=== PATIENT | female | born 1975 | race Caucasian/White ===

== ENCOUNTER 2017-10-11 09:06 | Emergency (ER) | payer MEDICAID, OTHER ==
[~2017-10-11] VITALS: Ht 154.9 cm; Wt 113.4 kg
[~2017-10-11 09:06] MED LIST: ACHD5005 PO; ACID1TAB PO; ALPR2TAB2; AMIT100T2 PO; AMIT150T PO; AMIT150T3 PO; AMIT50TA3; BUSP10TA95 GT; CA C1TAB26 PO; CEFD300C3 PO; CEPH500C PO; CIPR500T4; CIPR500T78 PO; CLIN-62; CLIN-62 PO; CLN150C PO; CPR500T PO; CYCL10TA9 PO; DICY10CA59 PO; DIET PILL; DIPH1TAB25 PO; DOXY25TA35 PO; ESCI20TA2; FLUO20CA25 PO; FLUO40CA12; FLUO40CA12 PO; GBPN100C; GBPN300C PO; HYDR-1231 PO; HYDR-34 PO; HYDR-3714; HYDR-707 PO; HYDR-757 PO; HYDR1TAB PO; HYDR25CA5 PO; IBP800T; IBUP-2055 PO; IBUP800T26 PO; INDO50CA PO; KETO75CA PO; LEVOTHYROID; META800T5 PO; NAPR-243 PO; NITR-65 PO; ONDA-42 SL; PHEN200T27 PO; POTA10CA43 PO; PREG100C22 PO; PREG150C; PREG25CA; PREG50C PO; PROP1TAB77; PROP20TA5 PO; PROPANOLOL; QUET50TA; TRAZ-144 PO; TRAZ150T42 PO; TRM50T PO; TRZ100T; TRZ50T; [UNRECOGNIZED DRUG - CODE]
--- OUTSIDE RECORDS SUMMARY | 2017-10-11 09:11 | XMS REPORT ---
Author Author FANNY LOPEZ Organization [facility] Address [address] [place] [address] Care Team Providers Care Power Transformer Repairer Name Role Phone FANNY LOPEZ Unavailable PROBLEMS Type Condition ICD9-CM Code [id number] Code Onset Dates Condition Status SNOMED Code Problem Bipolar depression F31.30 Active 49033116 Problem Left hip pain M25.552 Active 24544751 Problem Sacroiliac joint pain M53.3 Active 424195390 Problem Idiopathic peripheral neuropathy G60.9 Active 84690329 Problem Viral syndrome B34.9 Active 84725390 Problem Ganglion cyst of wrist, right M67.431 Active 779468251 Problem Primary insomnia F51.01 Active 6543072 Problem Abnormal thyroid blood test R94.6 Active 006483577 Problem Long-term use of high-risk medication Z79.899 Active 634630541 Problem Bipolar disorder, unspecified 296.80 Active 01584030 Problem Arthritis M19.90 Active 3328810 Problem Essential hypertension I10 Active 54196308 Problem IBS (irritable bowel syndrome) K58.9 Active 02098828 Problem Acquired hypothyroidism E03.9 Active 551381799 Problem Gastroesophageal reflux disease without esophagitis K21.9 Active 083037653 Problem Fibromyalgia M79.7 Active 68845801 ALLERGIES No Known Allergies SOCIAL HISTORY No smoking Hx information available PLAN OF CARE VITAL SIGNS MEDICATIONS No Known Medications RESULTS No Results PROCEDURES No Known procedures IMMUNIZATIONS No Known Immunizations
--- OUTSIDE RECORDS SUMMARY | 2017-10-11 09:12 | XMS REPORT ---
Author Author FANNY LOPEZ [facility] eClinicalWorks Address Unknown Phone Unavailable Care Team Providers Care Metal Tank Builder Name Role Phone FANNY LOPEZ CP Unavailable Allergies No Known Allergies Problems Problem Type Condition Code Onset Dates Condition Status Problem Essential hypertension, benign 401.1 Active Problem Esophageal reflux 530.81 Active Problem Anxiety state, unspecified 300.00 Active Problem Pain in joint, lower leg 719.46 Active Problem Memory loss 780.93 Active Problem HTN (hypertension) 401.9 Active Problem Opioid type dependence, unspecified abuse 304.00 Active Problem Major depressive disorder, recurrent episode, severe, without mention of psychotic behavior 296.33 Active Problem Irritable bowel syndrome 564.1 Active Problem Other chronic pain 338.29 Active Assessment Fibromyalgia M79.7 Active Problem Insomnia, unspecified 780.52 Active Problem Bipolar disorder, unspecified 296.80 Active Medications No Known Medications Results No Known Results Summary Purpose eClinicalWorks Submission
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
--- OUTSIDE RECORDS SUMMARY | 2017-10-11 09:12 | XMS REPORT ---
Author Author GRACY URIAS [facility] eClinicalWorks Address Unknown Phone Unavailable Care Team Providers Care Weekend Receptionist Name Role Phone GRACY URIAS CP Unavailable Allergies, Adverse Reactions, Alerts Substance Reaction Event Type Tramadol HCl itching Drug Allergy Penicillin V Potassium shock Drug Allergy Cymbalta rash Drug Allergy Ambien dangerous activites while sleeping Drug Allergy Morphine hives, vomiting Drug Allergy Problems Problem Type Condition Code Onset Dates Condition Status Problem Fibromyalgia M79.7 Active Problem Acquired hypothyroidism E03.9 Active Problem Arthritis M19.90 Active Assessment Bipolar depression F31.30 Active Problem Bipolar disorder, unspecified 296.80 Active Problem Sacroiliac joint pain M53.3 Active Problem Bipolar depression F31.30 Active Problem Left hip pain M25.552 Active Problem IBS (irritable bowel syndrome) K58.9 Active Problem Gastroesophageal reflux disease without esophagitis K21.9 Active Problem Primary insomnia F51.01 Active Problem Essential hypertension I10 Active Medications No Known Medications Procedures Procedure Coding System Code Date Psych diagnostic evaluation w/medical services, new patient CPT-4 24009 Sep 20, 2015 Results No Known Results Summary Purpose eClinicalWorks Submission
--- OUTSIDE RECORDS SUMMARY | 2017-10-11 09:12 | XMS REPORT ---
Author Author FANNY LOPEZ Organization [facility] Address [address] [place] [address] Care Team Providers Care Nurseryman Assistant Name Role Phone SOFIACasie FANNY Unavailable PROBLEMS Type Condition ICD9-CM Code [id number] Code Onset Dates Condition Status SNOMED Code Problem Bipolar depression F31.30 Active 15281323 Problem Left hip pain M25.552 Active 01757975 Problem Sacroiliac joint pain M53.3 Active 387658679 Problem Idiopathic peripheral neuropathy G60.9 Active 54672509 Problem Viral syndrome B34.9 Active 75042693 Problem Ganglion cyst of wrist, right M67.431 Active 946484544 Problem Primary insomnia F51.01 Active 4737808 Problem Abnormal thyroid blood test R94.6 Active 815018811 Problem Long-term use of high-risk medication Z79.899 Active 154527295 Problem Bipolar disorder, unspecified 296.80 Active 52533189 Problem Arthritis M19.90 Active 5569729 Problem Essential hypertension I10 Active 70091842 Problem IBS (irritable bowel syndrome) K58.9 Active 94459523 Problem Acquired hypothyroidism E03.9 Active 815572566 Problem Gastroesophageal reflux disease without esophagitis K21.9 Active 562556195 Problem Fibromyalgia M79.7 Active 44768788 ALLERGIES Substance Reaction Event Type Date Status Tramadol HCl itching Drug Allergy Aug, Active Penicillin V Potassium shock Drug Allergy Aug, Active Ambien dangerous activites while sleeping Drug Allergy Aug, Active Morphine hives, vomiting Drug Allergy Aug, Active SOCIAL HISTORY No smoking Hx information available PLAN OF CARE Activity Details Follow Up 6 Months, prn Reason:BP VITAL SIGNS Height 62 in 2016-09-17 Weight 226.9 lbs 2016-09-17 Temperature 98.5 degrees Fahrenheit 2016-09-17 Heart Rate 88 bpm 2016-09-17 Respiratory Rate 20 2016-09-17 BMI 41.50 kg/m2 2016-09-17 Blood pressure systolic 128 mmHg 2016-09-17 Blood pressure diastolic 98 mmHg 2016-09-17 MEDICATIONS Medication Instructions Dosage Frequency Start Date End Date Duration Status Ibuprofen 800 MG Orally Three times a day prn 1 tablet Aug, Feb, 30 day(s) Active propranolol 20 mg by oral route 2 times a day 1 tablet 12h Feb, 30 days Active Amitriptyline HCl 75 MG Orally Once a day 1 tablet 24h 28 days Active Gabapentin 400 MG Orally 4 times a day 1 capsule 6h 28 days Active Cymbalta 30 MG Orally Once a day 3 capsule 24h 30 days Active RESULTS No Results PROCEDURES Procedure Date Ordered Related Diagnosis Body Site Office Visit, Est Pt., Level 4 Sep 17, 2016 IMMUNIZATIONS No Known Immunizations
--- OUTSIDE RECORDS SUMMARY | 2017-10-11 09:12 | XMS REPORT ---
Author Author FANNY LOPEZ [facility] Address [address] [place] [address] Care Team Providers Care Surgical Services Tech Name Role Phone FANNY LOPEZ Unavailable PROBLEMS Type Condition ICD9-CM Code [id number] Code Onset Dates Condition Status SNOMED Code Problem Essential hypertension I10 Active 59078155 Problem Bipolar depression F31.30 Active 48037591 Problem Primary insomnia F51.01 Active 8939616 Problem Viral syndrome B34.9 Active 12951478 Problem Long-term use of high-risk medication Z79.899 Active 762628437 Problem Left hip pain M25.552 Active 42383596 Problem Sacroiliac joint pain M53.3 Active 998563882 Problem Abnormal thyroid blood test R94.6 Active 287052167 Problem Ganglion cyst of wrist, right M67.431 Active 723641638 Problem Arthritis M19.90 Active 7252500 Problem Acquired hypothyroidism E03.9 Active 936097548 Problem Bipolar disorder, unspecified 296.80 Active 77131634 Problem Gastroesophageal reflux disease without esophagitis K21.9 Active 194448747 Problem Fibromyalgia M79.7 Active 77233093 Problem IBS (irritable bowel syndrome) K58.9 Active 98043286 ALLERGIES Unknown Allergies SOCIAL HISTORY No smoking Hx information available PLAN OF CARE VITAL SIGNS MEDICATIONS Medication Instructions Dosage Frequency Start Date End Date Duration Status Gabapentin Active RESULTS No Results PROCEDURES No Known procedures IMMUNIZATIONS No Known Immunizations
--- OUTSIDE RECORDS SUMMARY | 2017-10-11 09:13 | XMS REPORT ---
Author Author FANNY LOPEZ [facility] eClinicalWorks Address Unknown Phone Unavailable Care Team Providers Care Heat Treat Supervisor Name Role Phone FANNY LOPEZ CP Unavailable Allergies, Adverse Reactions, Alerts Substance Reaction Event Type Tramadol HCl itching Drug Allergy Penicillin V Potassium shock Drug Allergy Cymbalta rash Drug Allergy Morphine hives, vomiting Drug Allergy Problems Problem Type Condition Code Onset Dates Condition Status Assessment Gastroesophageal reflux disease without esophagitis K21.9 Active Assessment Arthritis M19.90 Active Assessment Acquired hypothyroidism E03.9 Active Problem IBS (irritable bowel syndrome) K58.9 Active Problem Gastroesophageal reflux disease without esophagitis K21.9 Active Problem Essential hypertension I10 Active Problem Fibromyalgia M79.7 Active Problem Bipolar disorder, unspecified 296.80 Active Problem Acquired hypothyroidism E03.9 Active Problem Arthritis M19.90 Active Assessment Fibromyalgia M79.7 Active Assessment Essential hypertension I10 Active Assessment IBS (irritable bowel syndrome) K58.9 Active Medications Medication Code System Code Instructions Start Date End Date Status Dosage Omeprazole [facility] [address]-98 20 MG take 1 capsule (20 mg) by oral route once daily before a meal Levothyroxine Sodium [facility] [address]-76 25 MCG Orally Once a day 1 tablet Bentyl [facility] [address]-82 10 MG Orally 2 times a day, PRN abdominal pain 1 Capsule Vitamin D3 [facility] 95367-[address]35 1,000 unit 1 Tablet by Oral route 1 time per day propranolol NDC 0 20 mg BID 1 tablet Lyrica [facility] [address]-63 150 MG Orally Twice a day Oct 20, 2014 take 1 capsule Procedures Procedure Coding System Code Date COMPREHEN METABOLIC PANEL CPT-4 17298 Jul 17, 2015 VENIPUNCT, ROUTINE* CPT-4 53856 Jul 17, 2015 ASSAY THYROID STIM HORMONE CPT-4 37795 Jul 17, 2015 Office Visit, Est Pt., Level 4 CPT-4 03087 Jul 17, 2015 Vital Signs Date/Time: Jul 17, 2015 Temperature 97.0 F Weight 223.5 lbs Height 62 in BMI 40.87 Index Blood Pressure Diastolic 78 mmHg Blood Pressure Systolic 128 mmHg Cardiac Monitoring Heart Rate 76 bpm Results Name Result Date Reference Range Unit Abnormality Flag ROUTINE VENIPUNCTURE Summary Purpose eClinicalWorks Submission
--- OUTSIDE RECORDS SUMMARY | 2017-10-11 09:13 | XMS REPORT ---
Author Author BIENVENIDO GARCIA [facility] eClinicalWorks Address Unknown Phone Unavailable Care Team Providers Care Circular Saw Filer Name Role Phone BIENVENIDO GARCIA Unavailable Allergies, Adverse Reactions, Alerts Substance Reaction Event Type Tramadol HCl itching Drug Allergy Penicillin V Potassium shock Drug Allergy Ambien dangerous activites while sleeping Drug Allergy Morphine hives, vomiting Drug Allergy Problems Problem Type Condition Code Onset Dates Condition Status Problem IBS (irritable bowel syndrome) K58.9 Active Problem Primary insomnia F51.01 Active Problem Essential hypertension I10 Active Problem Long-term use of high-risk medication Z79.899 Active Problem Abnormal thyroid blood test R94.6 Active Problem Viral syndrome B34.9 Active Problem Sacroiliac joint pain M53.3 Active Problem Bipolar depression F31.30 Active Problem Ganglion cyst of wrist, right M67.431 Active Problem Left hip pain M25.552 Active Problem Fibromyalgia M79.7 Active Problem Arthritis M19.90 Active Assessment Other constipation K59.09 Active Problem Acquired hypothyroidism E03.9 Active Problem Bipolar disorder, unspecified 296.80 Active Problem Gastroesophageal reflux disease without esophagitis K21.9 Active Medications Medication Code System Code Instructions Start Date End Date Status Dosage Cymbalta [facility] [address]-03 30 MG Orally Once a day 3 capsule Amitriptyline HCl [facility] [address]-78 50 MG Orally Once a day 1 tablet Ibuprofen [facility] [address]-95 800 MG Orally Three times a day prn Jun 26, 2016 Aug 25, 2016 1 tablet Gabapentin [facility] [address]-52 400 MG Orally 4 times a day 1 capsule Melatonin [facility] [address]-94 5 MG Orally Once a day 2 tablet at bedtime as needed with food Citrate of Magnesia [facility] [address]-52 1.745 GM/30ML Orally one time Jun as directed propranolol ND 0 20 mg BID 1 tablet Procedures Procedure Coding System Code Date Office Visit, Est Pt., Level 3 CPT-4 94495 Jul 14, 2016 X-RAY EXAM OF ABDOMEN CPT-4 11252 Jul 14, 2016 Vital Signs Date/Time: Jul 14, 2016 Cardiac Monitoring Heart Rate 72 bpm Weight 221.6 lbs Height 62 in BMI 40.53 Index Blood Pressure Diastolic 98 mmHg Blood Pressure Systolic 140 mmHg Results Name Result Date Reference Range Unit Abnormality Flag Xray : Abdomen 1v (Upright) - IN HOUSE Summary Purpose eClinicalWorks Submission
--- OUTSIDE RECORDS SUMMARY | 2017-10-11 09:13 | XMS REPORT ---
Author Author FANNY LOPEZ [facility] eClinicalWorks Address Unknown Phone Unavailable Care Team Providers Care Public Works Technician Name Role Phone FANNY LOPEZ Unavailable Allergies, Adverse Reactions, Alerts Substance Reaction Event Type Tramadol HCl itching Drug Allergy Penicillin V Potassium shock Drug Allergy Ambien dangerous activites while sleeping Drug Allergy Morphine hives, vomiting Drug Allergy Problems Problem Type Condition Code Onset Dates Condition Status Problem Gastroesophageal reflux disease without esophagitis K21.9 Active Problem Essential hypertension I10 Active Problem IBS (irritable bowel syndrome) K58.9 Active Problem Abnormal thyroid blood test R94.6 Active Problem Ganglion cyst of wrist, right M67.431 Active Problem Long-term use of high-risk medication Z79.899 Active Problem Bipolar depression F31.30 Active Problem Primary insomnia F51.01 Active Problem Left hip pain M25.552 Active Problem Sacroiliac joint pain M53.3 Active Assessment Abnormal thyroid blood test R94.6 Active Assessment Long-term use of high-risk medication Z79.899 Active Assessment Ganglion cyst of wrist, right M67.431 Active Problem Bipolar disorder, unspecified 296.80 Active Problem Fibromyalgia M79.7 Active Assessment Essential hypertension I10 Active Problem Arthritis M19.90 Active Assessment Fibromyalgia M79.7 Active Problem Acquired hypothyroidism E03.9 Active Medications Medication Code System Code Instructions Start Date End Date Status Dosage propranolol NDC 0 20 mg BID 1 [place] [address]-22 50 MG Orally Once a day 1 [place] [address]-52 800 MG Orally Three times a day prn Jun 26, 2016 Aug 25, 2016 1 tablet Gabapentin [facility] [address]-11 400 MG Orally 4 times a day 1 [place] [address]-99 30 MG Orally Once a day 3 capsule Procedures Procedure Coding System Code Date VENIPUNCT, ROUTINE* CPT-4 00665 Jun 26, 2016 Office Visit, Est Pt., Level 4 CPT-4 24263 Jun 26, 2016 LAB NOT BILLED BY [facility] CPT-4 NOBLL Jun 26, 2016 Vital Signs Date/Time: Jun 26, 2016 Cardiac Monitoring Heart Rate 76 bpm Weight 217.0 lbs Height 62 in BMI 39.69 Index Blood Pressure Diastolic 90 mmHg Blood Pressure Systolic 128 mmHg Results Name Result Date Reference Range Unit Abnormality Flag ROUTINE VENIPUNCTURE Summary Purpose eClinicalWorks Submission
--- OUTSIDE RECORDS SUMMARY | 2017-10-11 09:13 | XMS REPORT ---
Author Author ROSLYN DIAZ Organization eClinicalWorks Address Unknown Phone Unavailable Care Team Providers Care House Carpenter Helper Name Role Phone ROSLYN DIAZ Unavailable Allergies No Known Allergies Problems Problem Type Condition Code Onset Dates Condition Status Problem Fibromyalgia M79.7 Active Problem Acquired hypothyroidism E03.9 Active Problem Arthritis M19.90 Active Problem Bipolar disorder, unspecified 296.80 Active Problem Sacroiliac joint pain M53.3 Active Problem Bipolar depression F31.30 Active Problem Left hip pain M25.552 Active Problem IBS (irritable bowel syndrome) K58.9 Active Problem Gastroesophageal reflux disease without esophagitis K21.9 Active Problem Primary insomnia F51.01 Active Problem Essential hypertension I10 Active Medications Medication Code System Code Instructions Start Date End Date Status Dosage Ibuprofen [facility] [address]-16 200 mg Orally 2 times a day as needed 4 tablet as needed Doxylamine Succinate (Sleep) [facility] [address]-75 25 MG Orally Once a day at HS 2 tablet at bedtime as needed Results No Known Results Summary Purpose eClinicalWorks Submission
--- OUTSIDE RECORDS SUMMARY | 2017-10-11 09:13 | XMS REPORT ---
Author Author CHRIS MEYERS [facility] eClinicalWorks Address Unknown Phone Unavailable Care Team Providers Care Education Coordinator Name Role Phone CHRIS MEYERS CP Unavailable Allergies, Adverse Reactions, Alerts Substance [...] M79.7 Active Problem Arthritis M19.90 Active Assessment Viral syndrome B34.9 Active Problem Acquired hypothyroidism E03.9 Active Problem Bipolar disorder, unspecified 296.80 Active Problem Gastroesophageal reflux disease without esophagitis K21.9 Active Medications Medication Code System Code Instructions Start Date End Date Status Dosage Amitriptyline HCl [facility] [address]-93 50 MG Orally Once a day 1 tablet Melatonin [facility] [address]-99 5 MG Orally Once a day 2 tablet at bedtime as needed with food Gabapentin [facility] [address]-51 400 MG Orally 4 times a day 1 capsule propranolol ND 0 20 mg BID 1 tablet Pepcid [facility] [address]-65 20 mg Orally bid Jun 30, 2016 1 tablet Cymbalta [facility] [address]-64 30 MG Orally Once a day 3 capsule Ibuprofen [facility] [address]-66 800 MG Orally Three times a day prn Jun 26, 2016 Aug 25, 2016 1 tablet Procedures Procedure Coding System Code Date Office Visit, Est Pt., Level 3 CPT-4 37410 Jun 30, 2016 URINALYSIS, AUTO, W/O SCOPE CPT-4 33189 Jun 30, 2016 Vital Signs Date/Time: Jun 30, 2016 Cardiac Monitoring Heart Rate 66 bpm Weight 219.4 lbs Height 62 in BMI 40.12 Index Blood Pressure Diastolic 84 mmHg Blood Pressure Systolic 132 mmHg Results Name Result Date Reference Range Unit Abnormality Flag UA LONG DIP (IN HOUSE) ----DIRK negative 20160630 ----NIT negative 20160630 ----Exp date 20160630 ----Lot # [id number] ----SG >=1.030 20160630 ----KET negative 20160630 ----JARETT negative 20160630 ----GLU negative 20160630 ----Odor none 20160630 ----pH 6.0 20160630 ----BLO negative 20160630 ----URO 0.2 20160630 ----Protein negative 20160630 ----Lot # [id number] ----Exp date 20160630 ----Clarity clear 20160630 ----Color yellow 20160630 Summary Purpose eClinicalWorks Submission
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
[2017-10-11 09:39] LABS: BILIRUBIN,URINE NEGATIVE (NEGATIVE); CLARITY,URINE CLEAR; COLOR,URINE YELLOW; GLUCOSE, URINE (UA) NEGATIVE (NEGATIVE); KETONES,URINE NEGATIVE (NEGATIVE); LEUKOCYTE ESTERASE ,URINE 1+ (NEGATIVE); NITRITE,URINE NEGATIVE (NEGATIVE); PH,URINE 7 (5-9); PROTEIN,URINE NEGATIVE (NEGATIVE); UROBILINOGEN,URINE NORMAL (NORMAL)
[2017-10-11 09:47] LABS: BACTERIA,URINE FEW /HPF; SQUAMOUS EPITHELIAL CELL,UR 0-2 /HPF
[2017-10-11] MEDS ORDERED: IBUP-1780 (10:18)
[2017-10-11] MEDS ORDERED: DULO30CA48 (10:18)
[2017-10-11] MEDS ORDERED: AMIT75TA2 (10:18)
[2017-10-11] MEDS ORDERED: LYRICA (10:18)
[2017-10-11] MEDS ORDERED: OMEP20CA12 (10:18)
[2017-10-11] MEDS ORDERED: TRIM/SULFAMETH 160/800 (SEPTRA DS) TAB PO STA (10:24)
[2017-10-11] MEDS ORDERED: SULF-222 PO (10:30)
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
[2017-10-11 10:41] VITALS: BP 176/98
== END 2017-10-11 10:41 | disposition home or self-care (01) ==
LOC: EDUNIT# 09:06 → ER 09:07
DX: N39.0 Urinary tract infection, site not specified (principal); I10 Essential (primary) hypertension; K21.9 Gastro-esophageal reflux disease without esophagitis; E03.9 Hypothyroidism, unspecified; F41.9 Anxiety disorder, unspecified; F17.200 Nicotine dependence, unspecified, uncomplicated; Z98.51 Tubal ligation status; Z90.710 Acquired absence of both cervix and uterus; Z87.59 Personal history of other complications of pregnancy, childbirth and the puerperium; Z87.19 Personal history of other diseases of the digestive system; Z87.442 Personal history of urinary calculi; Z87.440 Personal history of urinary (tract) infections; Z88.0 Allergy status to penicillin; Z88.5 Allergy status to narcotic agent; Z88.8 Allergy status to other drugs, medicaments and biological substances
CPT/HCPCS: 81000; 87088; 87186; 99282

== ENCOUNTER 2017-12-26 10:47 | Emergency (ER) | payer MEDICAID ==
[~2017-12-26] VITALS: Ht 154.9 cm; Wt 99.8 kg
[~2017-12-26 10:47] MED LIST changes: +AMIT75TA2; +DULO30CA48; +IBUP-1780; +LYRICA; +OMEP20CA12; +SULF-222 PO
--- OUTSIDE RECORDS SUMMARY | 2017-12-26 10:55 | XMS REPORT | Continuity of Care Document ---
Author Author [facility] Address Unknown Phone Unavailable Allergies Active Description Code Type Severity Reaction Onset Reported/Identified Relationship to Patient Clinical Status Yes Penicillins [id number] Drug Allergy Mild N/A 12/07/2008 Yes Cymbalta Drug Allergy N/A N/A 01/03/2009 Yes Penicillins Drug Allergy N/A N/A 01/03/2009 Yes Cymbalta Drug Allergy 01/03/2009 Yes Penicillins Drug Allergy 01/03/2009 Yes morphine [id number] Drug Allergy Mild VOMITING 09/28/2012 Yes codeine [id number] Drug Allergy Unknown N/A 01/21/2014 Yes morphine Drug Allergy N/A N/A 05/26/2014 Yes tramadol [id number] Drug Allergy Mild itching 07/26/2014 Medications There [...] 788.1 pain during urination (dysuria) 01/03/2009 HANNAH INTERNAL COMMUNICATIONS SPECIALIST, BELKIS R 788.1 pain during urination (dysuria) 01/03/2009 PITA FINE, MARISABEL Carlisle 788.1 pain during urination (dysuria) 01/03/2009 HANNAH INTERNAL COMMUNICATIONS SPECIALIST, BELKIS R 788.1 pain during urination (dysuria) 01/03/2009 HANNAH INTERNAL COMMUNICATIONS SPECIALIST, BELKIS R 788.1 pain during urination (dysuria) 01/03/2009 HANNAH INTERNAL COMMUNICATIONS SPECIALIST, BELKIS R 788.1 pain during urination (dysuria) 01/03/2009 HANNAH INTERNAL COMMUNICATIONS SPECIALIST, BELKIS R 788.1 pain during urination (dysuria) 01/03/2009 HANNAH INTERNAL COMMUNICATIONS SPECIALIST, BELKIS R 788.1 pain during urination (dysuria) 01/03/2009 BARRINGTON LOYA 788.1 pain during urination (dysuria) 01/03/2009 CLEVE [...] DDS 280.9 ANEMIA IRON DEFICIENCY 01/08/2009 HANNAH INTERNAL COMMUNICATIONS SPECIALIST, BELKIS R 280.9 ANEMIA IRON DEFICIENCY 01/08/2009 HANNAH GOLDSTEINN, BELKIS R 280.9 ANEMIA IRON DEFICIENCY 01/08/2009 HANNAH GOLDSTEINN, BELKIS R 280.9 ANEMIA IRON DEFICIENCY 01/08/2009 CLEVE MACARIO DDS 280.9 ANEMIA IRON DEFICIENCY 01/08/2009 CHERISE LYNN LCPC B 280.9 ANEMIA IRON DEFICIENCY 01/08/2009 HANNAH ROBERSON, BELKIS R 280.9 ANEMIA IRON DEFICIENCY 01/08/2009 PITA FINE, MARISABEL Carlisle 280.9 ANEMIA IRON DEFICIENCY 01/08/2009 HANNAH INTERNAL COMMUNICATIONS SPECIALIST, BELKIS R 280.9 ANEMIA IRON DEFICIENCY 01/08/2009 HANNAH INTERNAL COMMUNICATIONS SPECIALIST, BELKIS R 280.9 ANEMIA IRON DEFICIENCY 01/08/2009 HANNAH INTERNAL COMMUNICATIONS SPECIALIST, BELKIS R 280.9 ANEMIA IRON DEFICIENCY 01/08/2009 HANNAH INTERNAL COMMUNICATIONS SPECIALIST, BELKIS R 280.9 ANEMIA IRON DEFICIENCY 01/08/2009 HANNAH INTERNAL COMMUNICATIONS SPECIALIST, BELKIS R 280.9 ANEMIA IRON DEFICIENCY 01/08/2009 [...] DDS, DULCE D 787.91 DIARRHEA 06/15/2010 HANNAH INTERNAL COMMUNICATIONS SPECIALIST, BELKIS R 558.9 OTHER AND UNSPECIFIED NONINFECTIOUS GASTROENTERITIS AND COLITIS 06/15/2010 HANNAH INTERNAL COMMUNICATIONS SPECIALIST, BELKIS R 784.0 HEADACHE 06/15/2010 HANNAH INTERNAL COMMUNICATIONS SPECIALIST, BELKIS R 787.91 DIARRHEA 06/15/2010 HANNAH INTERNAL COMMUNICATIONS SPECIALIST, BELKIS R 558.9 OTHER AND UNSPECIFIED NONINFECTIOUS GASTROENTERITIS AND COLITIS 06/15/2010 HANNAH INTERNAL COMMUNICATIONS SPECIALIST, BELKIS R 784.0 HEADACHE 06/15/2010 HANNAH INTERNAL COMMUNICATIONS SPECIALIST, BELKIS R 787.91 DIARRHEA 06/15/2010 HANNAH INTERNAL COMMUNICATIONS SPECIALIST, BELKIS R 558.9 OTHER AND UNSPECIFIED NONINFECTIOUS GASTROENTERITIS AND COLITIS 06/15/2010 HANNAH INTERNAL COMMUNICATIONS SPECIALIST, BELKIS R 784.0 HEADACHE 06/15/2010 HANNAH INTERNAL COMMUNICATIONS SPECIALIST, BELKIS R 787.91 DIARRHEA 06/15/2010 CLEVE MACARIO DDS 558.9 OTHER AND UNSPECIFIED NONINFECTIOUS GASTROENTERITIS AND COLITIS 06/15/2010 MACARIO DDS, CLEVE 784.0 HEADACHE 06/15/2010 MACARIO DDS, CLEVE 787.91 DIARRHEA 06/15/2010 SHANE TREATMENT PLANT MECHANIC, CHERISE B 558.9 OTHER AND UNSPECIFIED NONINFECTIOUS GASTROENTERITIS AND COLITIS 06/15/2010 SHANE TREATMENT PLANT MECHANIC, CHERISE B 784.0 HEADACHE 06/15/2010 SHANE T[employer]AT[employer] PLANT MECHANIC, CHERISE B 787.91 DIARRHEA 06/15/2010 HANNAH INTERNAL COMMUNICATIONS SPECIALIST, BELKIS R 558.9 OTHER AND UNSPECIFIED NONINFECTIOUS GASTROENTERITIS AND COLITIS 06/15/2010 HANNAH INTERNAL COMMUNICATIONS SPECIALIST, BELKIS R 784.0 HEADACHE 06/15/2010 HANNAH INTERNAL COMMUNICATIONS SPECIALIST, BELKIS R 787.91 DIARRHEA 06/15/2010 PITA FINE, MARISABEL Carlisle 558.9 OTHER AND UNSPECIFIED NONINFECTIOUS GASTROENTERITIS AND COLITIS 06/15/2010 PITA FINE, MARISABEL Carlisle 784.0 HEADACHE 06/15/2010 PITA FINE, MARISABEL Carlisle 787.91 DIARRHEA 06/15/2010 HANNAH INTERNAL COMMUNICATIONS SPECIALIST, BELKIS R 558.9 OTHER AND UNSPECIFIED NONINFECTIOUS GASTROENTERITIS AND COLITIS 06/15/2010 HANNAH INTERNAL COMMUNICATIONS SPECIALIST, BELKIS R 784.0 HEADACHE 06/15/2010 HANNAH INTERNAL COMMUNICATIONS SPECIALIST, BELKIS R 787.91 DIARRHEA 06/15/2010 HANNAH INTERNAL COMMUNICATIONS SPECIALIST, BELKIS R 558.9 OTHER AND UNSPECIFIED NONINFECTIOUS GASTROENTERITIS AND COLITIS 06/15/2010 HANNAH INTERNAL COMMUNICATIONS SPECIALIST, BELKIS R 784.0 HEADACHE 06/15/2010 HANNAH INTERNAL COMMUNICATIONS SPECIALIST, BELKIS R 787.91 DIARRHEA 06/15/2010 HANNAH INTERNAL COMMUNICATIONS SPECIALIST, BELKIS R 558.9 OTHER AND UNSPECIFIED NONINFECTIOUS GASTROENTERITIS AND COLITIS 06/15/2010 HANNAH INTERNAL COMMUNICATIONS SPECIALIST, BELKIS R 784.0 HEADACHE 06/15/2010 HANNHA INTERNAL COMMUNICATIONS SPECIALIST, BELKIS R 787.91 DIARRHEA 06/15/2010 HANNAH INTERNAL COMMUNICATIONS SPECIALIST, BELKIS R 558.9 OTHER AND UNSPECIFIED NONINFECTIOUS GASTROENTERITIS AND COLITIS 06/15/2010 HANNAH INTERNAL COMMUNICATIONS SPECIALIST, BELKIS R 784.0 HEADACHE 06/15/2010 HANNAH INTERNAL COMMUNICATIONS SPECIALIST, BELKIS R 787.91 DIARRHEA 06/15/2010 HANNAH INTERNAL COMMUNICATIONS SPECIALIST, BELKIS R 558.9 OTHER AND UNSPECIFIED NONINFECTIOUS GASTROENTERITIS AND COLITIS 06/15/2010 HANNAH INTERNAL COMMUNICATIONS SPECIALIST, BELKIS R 784.0 HEADACHE 06/15/2010 HANNAH INTERNAL COMMUNICATIONS SPECIALIST, BELKIS R 787.91 DIARRHEA 06/15/2010 DAVID OPERATIONS REPRESENTATIVE, BARRINGTON M 558.9 OTHER AND UNSPECIFIED NONINFECTIOUS GASTROENTERITIS AND COLITIS 06/15/2010 DAVID OPERATIONS REPRESENTATIVE, BARRINGTON M 784.0 HEADACHE 06/15/2010 DAVID OPERATIONS REPRESENTATIVE, BARRINGTON M 787.91 DIARRHEA 06/15/2010 MACARIO DDS, CLEVE 558.9 OTHER AND UNSPECIFIED NONINFECTIOUS GASTROENTERITIS AND COLITIS 06/15/2010 MACARIO DDS, CLEVE 784.0 HEADACHE 06/15/2010 MACARIO DDS, CLEVE 787.91 DIARRHEA 06/15/2010 HELLTATO INTERNAL COMMUNICATIONS SPECIALIST, JIHAN E 558.9 OTHER AND UNSPECIFIED NONINFECTIOUS GASTROENTERITIS AND COLITIS 06/15/2010 HELLWIG INTERNAL COMMUNICATIONS SPECIALIST, JIHAN E 784.0 HEADACHE 06/15/2010 HELLWIG INTERNAL COMMUNICATIONS SPECIALIST, JIHAN E 787.91 DIARRHEA 06/19/2010 462 PHARYNGITIS ACUTE 06/19/2010 LEIGHTON JONES, IRA 462 PHARYNGITIS ACUTE 06/19/2010 462 PHARYNGITIS ACUTE 06/19/2010 462 PHARYNGITIS ACUTE 06/19/2010 462 PHARYNGITIS ACUTE 06/19/2010 BLAZE BADILLO APRN 462 PHARYNGITIS ACUTE 06/19/2010 ANTOINE IBARRA, DULCE Carlisle 462 PHARYNGITIS ACUTE 06/19/2010 HANNAH INTERNAL COMMUNICATIONS SPECIALIST, BELKIS R 462 PHARYNGITIS ACUTE 06/19/2010 HANNAH INTERNAL COMMUNICATIONS SPECIALIST, BELKIS R 462 PHARYNGITIS ACUTE 06/19/2010 HANNAH INTERNAL COMMUNICATIONS SPECIALIST, BELKIS R 462 PHARYNGITIS ACUTE 06/19/2010 MACARIO DDS, CLEVE 462 PHARYNGITIS ACUTE 06/19/2010 CHERISE LYNN LCPC 462 PHARYNGITIS ACUTE 06/19/2010 HANNAH GOLDSTEINN, BELKIS R 462 PHARYNGITIS ACUTE 06/19/2010 PITA FINE, MARISABEL Carlisle 462 PHARYNGITIS ACUTE 06/19/2010 HANNAH INTERNAL COMMUNICATIONS SPECIALIST, BELKIS R 462 PHARYNGITIS ACUTE 06/19/2010 HANNAH INTERNAL COMMUNICATIONS SPECIALIST, BELKIS R 462 PHARYNGITIS ACUTE 06/19/2010 HANNAH [...] skin: a rash [as Sx] 10/05/2012 HANNAH INTERNAL COMMUNICATIONS SPECIALIST, BELKIS R 338.29 CHRONIC PAIN 10/05/2012 HANNAH [...] DULCE Carlisle 461.9 SINUSITIS ACUTE 01/05/2013 HANNAH INTERNAL COMMUNICATIONS SPECIALIST, BELKIS R 461.9 SINUSITIS ACUTE 01/05/2013 HANNAH INTERNAL COMMUNICATIONS SPECIALIST, BELKIS R 461.9 SINUSITIS ACUTE 01/05/2013 HANNAH INTERNAL COMMUNICATIONS SPECIALIST, BELKIS R 461.9 SINUSITIS ACUTE 01/05/[address] RENALDO RDZS, CLEVE 461.9 SINUSITIS ACUTE 01/05/2013 SHANE NGUYEN, CHERISE Doyle 461.9 SINUSITIS ACUTE 01/05/2013 HANNAH INTERNAL COMMUNICATIONS SPECIALIST, BELKIS R 461.9 SINUSITIS ACUTE 01/05/2013 PITA FINE, MARISABEL D 461.9 SINUSITIS ACUTE 01/05/2013 HANNAH INTERNAL COMMUNICATIONS SPECIALIST, BELKIS R 461.9 SINUSITIS ACUTE 01/05/2013 HANNAH INTERNAL COMMUNICATIONS SPECIALIST, BELKIS R 461.9 SINUSITIS ACUTE 01/05/2013 HANNAH INTERNAL COMMUNICATIONS SPECIALIST, BELKIS R 461.9 SINUSITIS ACUTE 01/05/2013 HANNAH INTERNAL COMMUNICATIONS SPECIALIST, BELKIS R 461.9 SINUSITIS ACUTE 01/05/2013 HANNAH INTERNAL COMMUNICATIONS SPECIALIST, BELKIS R 461.9 SINUSITIS ACUTE 01/05/2013 DAVID RAMIREZ, BARRINGTON Lemus 461.9 SINUSITIS ACUTE 01/05/[address] RENALDO RDZS, CLEVE 461.9 SINUSITIS ACUTE 01/05/2013 JIHAN ALDANA APRN 461.9 SINUSITIS ACUTE 03/10/2013 MARKO JONES, ROYA Bush Ot 278.00 OBESITY, NOS 03/10/2013 MARKO JONES, ROYA Bush Ot 305.1 TOBACCO USE [...] MARISABEL Carlisle 304.00 OPIOID DEPENDENCE 04/05/2013 HANNAH INTERNAL COMMUNICATIONS SPECIALIST, BELKIS R 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 SEVERE W/O PSYCHOTIC BEHAVIOR 04/05/2013 HANNAH INTERNAL COMMUNICATIONS SPECIALIST, BELKIS R 304.00 OPIOID DEPENDENCE 04/05/2013 HANNAH INTERNAL COMMUNICATIONS SPECIALIST, BELKIS R 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 SEVERE W/O PSYCHOTIC BEHAVIOR 04/05/2013 HANNAH INTERNAL COMMUNICATIONS SPECIALIST, BELKIS R 304.00 OPIOID DEPENDENCE 04/05/2013 HANNAH INTERNAL COMMUNICATIONS SPECIALIST, BELKIS R 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 SEVERE W/O PSYCHOTIC BEHAVIOR 04/05/2013 HANNAH INTERNAL COMMUNICATIONS SPECIALIST, BELKIS R 304.00 OPIOID DEPENDENCE 04/05/2013 HANNAH INTERNAL COMMUNICATIONS SPECIALIST, BELKIS R 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 SEVERE W/O PSYCHOTIC BEHAVIOR 04/05/2013 HANNAH INTERNAL COMMUNICATIONS SPECIALIST, BELKIS R 304.00 OPIOID DEPENDENCE 04/05/2013 HANNAH INTERNAL COMMUNICATIONS SPECIALIST, BELKIS R 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 SEVERE [...] ROBERSON, BELKIS R 300.00 anxiety 04/07/2013 HANNAH INTERNAL COMMUNICATIONS SPECIALIST, BELKIS R 401.1 ESSENTIAL HYPERTENSION BENIGN 04/07/2013 HANNAH INTERNAL COMMUNICATIONS SPECIALIST, BELKIS R 530.81 ESOPHAGEAL REFLUX 04/07/2013 HANNAH INTERNAL COMMUNICATIONS SPECIALIST, BELKIS R 300.00 anxiety 04/07/2013 HANNAH INTERNAL COMMUNICATIONS SPECIALIST, BELKIS R 401.1 ESSENTIAL HYPERTENSION BENIGN 04/07/2013 HANNAH INTERNAL COMMUNICATIONS SPECIALIST, BELKIS R 530.81 ESOPHAGEAL REFLUX 04/07/2013 HANNAH INTERNAL COMMUNICATIONS SPECIALIST, BELKIS R 300.00 anxiety 04/07/2013 HANNAH INTERNAL COMMUNICATIONS SPECIALIST, BELKIS R 401.1 ESSENTIAL HYPERTENSION BENIGN 04/07/2013 HANNAH INTERNAL COMMUNICATIONS SPECIALIST, BELKIS R 530.81 ESOPHAGEAL REFLUX 04/07/2013 MACARIO DDS, CLEVE 300.00 anxiety 04/07/2013 MACARIO DDS, CLEVE 401.1 ESSENTIAL HYPERTENSION BENIGN 04/07/2013 MACARIO DDS, CLEVE 530.81 ESOPHAGEAL REFLUX 04/07/2013 SHANE T[employer]ATMENT PLANT MECHANIC, CHERISE B 300.00 anxiety 04/07/2013 SHANE T[employer] PLANT MECHANIC, CHERISE B 401.1 ESSENTIAL HYPERTENSION BENIGN 04/07/2013 SHANE T[employer]ATMENT PLANT MECHANIC, CHERISE B 530.81 ESOPHAGEAL REFLUX 04/07/2013 HANNAH INTERNAL COMMUNICATIONS SPECIALIST, BELKIS R 300.00 anxiety 04/07/2013 HANNAH INTERNAL COMMUNICATIONS SPECIALIST, BELKIS R 401.1 ESSENTIAL HYPERTENSION BENIGN 04/07/2013 HANNAH INTERNAL COMMUNICATIONS SPECIALIST, BELKIS R 530.81 ESOPHAGEAL REFLUX 04/07/2013 PITA PHD, MARISABEL Carlisle 300.00 anxiety 04/07/2013 PITA PHD, MARISABEL Carlisle 401.1 ESSENTIAL HYPERTENSION BENIGN 04/07/2013 PITA PHD, MARISABEL Carlisle 530.81 ESOPHAGEAL REFLUX 04/07/2013 HANNAH INTERNAL COMMUNICATIONS SPECIALIST, BELKIS R 300.00 anxiety 04/07/2013 HANNAH INTERNAL COMMUNICATIONS SPECIALIST, BELKIS R 401.1 ESSENTIAL HYPERTENSION BENIGN 04/07/2013 HANNAH INTERNAL COMMUNICATIONS SPECIALIST, BELKIS R 530.81 ESOPHAGEAL REFLUX 04/07/2013 HANNAH INTERNAL COMMUNICATIONS SPECIALIST, BELKIS R 300.00 anxiety 04/07/2013 HANNAH INTERNAL COMMUNICATIONS SPECIALIST, BELKIS R 401.1 ESSENTIAL HYPERTENSION BENIGN 04/07/2013 HANNAH INTERNAL COMMUNICATIONS SPECIALIST, BELKIS R 530.81 ESOPHAGEAL REFLUX 04/07/2013 HANNAH INTERNAL COMMUNICATIONS SPECIALIST, BELKIS R 300.00 anxiety 04/07/2013 HANNAH INTERNAL COMMUNICATIONS SPECIALIST, BELKIS R 401.1 ESSENTIAL HYPERTENSION BENIGN 04/07/2013 HANNAH INTERNAL COMMUNICATIONS SPECIALIST, BELKIS R 530.81 ESOPHAGEAL REFLUX 04/07/2013 HANNAH INTERNAL COMMUNICATIONS SPECIALIST, BELKIS R 300.00 anxiety 04/07/2013 HANNAH INTERNAL COMMUNICATIONS SPECIALIST, BELKIS R 401.1 ESSENTIAL HYPERTENSION BENIGN 04/07/2013 HANNAH INTERNAL COMMUNICATIONS SPECIALIST, BELKIS R 530.81 ESOPHAGEAL REFLUX 04/07/2013 HANNAH INTERNAL COMMUNICATIONS SPECIALIST, BELKIS R 300.00 anxiety 04/07/2013 HANNAH INTERNAL COMMUNICATIONS SPECIALIST, BELKIS R 401.1 ESSENTIAL HYPERTENSION BENIGN 04/07/2013 HANNAH INTERNAL COMMUNICATIONS SPECIALIST, BELKIS R 530.81 ESOPHAGEAL REFLUX 04/07/2013 DAVID OPERATIONS REPRESENTATIVE, BARRINGTON M 300.00 anxiety 04/07/2013 DAVID OPERATIONS REPRESENTATIVE, BARRINGTON M 401.1 ESSENTIAL HYPERTENSION BENIGN 04/07/2013 DAVID OPERATIONS REPRESENTATIVE, BARRINGTON M 530.81 ESOPHAGEAL REFLUX 04/07/2013 MACARIO DDS, CLEVE [...] B 296.80 MO BIPOLAR NOS 06/19/2014 HANNAH INTERNAL COMMUNICATIONS SPECIALIST, BELKIS R 296.80 MO BIPOLAR NOS 06/19/2014 PITA FINE, MARISABEL Carlisle 296.80 MO BIPOLAR NOS 06/19/2014 HANNAH INTERNAL COMMUNICATIONS SPECIALIST, BELKIS R 296.80 MO BIPOLAR NOS 06/19/2014 HANNAH INTERNAL COMMUNICATIONS SPECIALIST, BELKIS R 296.80 MO BIPOLAR NOS 06/19/2014 HANNAH INTERNAL COMMUNICATIONS SPECIALIST, BELKIS R 296.80 MO BIPOLAR NOS 06/19/2014 HANNAH INTERNAL COMMUNICATIONS SPECIALIST, BELKIS R 296.80 MO BIPOLAR NOS 06/19/2014 HANNAH INTERNAL COMMUNICATIONS SPECIALIST, BELKIS R 296.80 MO BIPOLAR NOS 06/19/2014 DAVID RAMIREZ, BARRINGTON M 296.80 MO BIPOLAR NOS 06/19/2014 RENALDO IBARRA, CLEVE 296.80 MO BIPOLAR NOS 06/19/2014 JOVAN ROBERSON, JIHAN E 296.80 MO BIPOLAR NOS 06/28/2014 HANNAH INTERNAL COMMUNICATIONS SPECIALIST, BELKIS R E885.9 ACCIDENTAL FALL FROM OTHER SLIPPING TRIPPING OR STUMBLING 06/28/2014 PITA FINE, MARISABEL Carlisle E885.9 ACCIDENTAL FALL FROM OTHER SLIPPING TRIPPING OR STUMBLING 06/28/2014 HANNAH INTERNAL COMMUNICATIONS SPECIALIST, BELKIS R E885.9 ACCIDENTAL FALL FROM OTHER SLIPPING TRIPPING OR STUMBLING 06/28/2014 HANNAH INTERNAL COMMUNICATIONS SPECIALIST, BELKIS R E885.9 ACCIDENTAL FALL FROM OTHER SLIPPING TRIPPING OR STUMBLING 06/28/2014 HANNAH INTERNAL COMMUNICATIONS SPECIALIST, BELKIS R E885.9 ACCIDENTAL FALL FROM OTHER SLIPPING TRIPPING OR STUMBLING 06/28/2014 HANNAH INTERNAL COMMUNICATIONS SPECIALIST, BELKIS R E885.9 ACCIDENTAL FALL FROM OTHER SLIPPING TRIPPING OR STUMBLING 06/28/2014 HANNAH INTERNAL COMMUNICATIONS SPECIALIST, BELKIS R E885.9 ACCIDENTAL FALL FROM OTHER [...] Carlisle 296.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 07/11/2014 HANNAH INTERNAL COMMUNICATIONS SPECIALIST, BELKIS R 296.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 07/11/2014 HANNAH INTERNAL COMMUNICATIONS SPECIALIST, BELKIS R 296.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 07/11/2014 HANNAH INTERNAL COMMUNICATIONS SPECIALIST, BELKIS R 296.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 07/11/2014 HANNAH INTERNAL COMMUNICATIONS SPECIALIST, BELKIS R 296.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 07/11/2014 HANNAH INTERNAL COMMUNICATIONS SPECIALIST, BELKIS R 296.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 07/11/2014 [...] IN THORACIC SPINE 07/24/2014 BELKIS YOUNG R INTERNAL COMMUNICATIONS SPECIALIST Ot 715.36 07/24/2014 HANNAH BELKIS R INTERNAL COMMUNICATIONS SPECIALIST Ot 724.2 07/24/2014 HANNAH BELKIS R INTERNAL COMMUNICATIONS SPECIALIST Ot 738.4 07/25/2014 HANNAH INTERNAL COMMUNICATIONS SPECIALIST, BELKIS R 793.7 NONSPECIFIC (ABNORMAL) FINDINGS ON RADIOLOGICAL AND OTHER EXAMINATION OF MUSCULOSKELETAL SYSTEM 07/25/2014 HANNAH INTERNAL COMMUNICATIONS SPECIALIST, BELKIS R 793.7 NONSPECIFIC (ABNORMAL) FINDINGS ON RADIOLOGICAL AND OTHER EXAMINATION OF MUSCULOSKELETAL SYSTEM 07/25/2014 HANNAH INTERNAL COMMUNICATIONS SPECIALIST, BELKIS R 793.7 NONSPECIFIC (ABNORMAL) FINDINGS ON RADIOLOGICAL AND OTHER EXAMINATION OF MUSCULOSKELETAL SYSTEM 07/25/2014 HANNAH INTERNAL COMMUNICATIONS SPECIALIST, BELKIS R 793.7 NONSPECIFIC (ABNORMAL) FINDINGS ON RADIOLOGICAL AND OTHER EXAMINATION OF MUSCULOSKELETAL SYSTEM 07/25/2014 HANNAH INTERNAL COMMUNICATIONS SPECIALIST, BELKIS R 793.7 NONSPECIFIC (ABNORMAL) FINDINGS ON [...] OF MUSCULOSKELETAL SYSTEM 07/26/2014 HANNAH BELKIS R INTERNAL COMMUNICATIONS SPECIALIST Ot 715.36 07/26/2014 HANNAH BELKIS R INTERNAL COMMUNICATIONS SPECIALIST Ot 724.2 07/26/2014 HANNAH BELKIS R INTERNAL COMMUNICATIONS SPECIALIST Ot 738.4 07/26/2014 JESÚS JONES, PEE T Ot 724.5 BACKACHE NOS 07/26/2014 JESÚS JONES, PEE Gtz Ot 805.2 FX DORSAL VERTEBRA-CLOSE 07/26/2014 JESÚS JONES, PEE T Ot E000.8 OTHER EXTERNAL CAUSE STATUS 07/26/2014 JESÚS JONES, PEE T Ot E888.9 FALL NOS 07/28/2014 HANNAH BELKIS R INTERNAL COMMUNICATIONS SPECIALIST Ot 715.36 07/28/2014 HANNAH BELKIS R INTERNAL COMMUNICATIONS SPECIALIST Ot 724.2 07/28/2014 HANNAH BELKIS R INTERNAL COMMUNICATIONS SPECIALIST Ot 738.4 08/02/2014 HANNAH BELKIS R INTERNAL COMMUNICATIONS SPECIALIST Ot 715.36 08/02/2014 HANNAH BELKIS R INTERNAL COMMUNICATIONS SPECIALIST Ot 724.2 08/02/2014 HANNAH BELKIS R INTERNAL COMMUNICATIONS SPECIALIST Ot 738.4 08/02/2014 HANNAH BELKIS R INTERNAL COMMUNICATIONS SPECIALIST Ot 724.1 08/02/2014 HANNAH, BELKIS R INTERNAL COMMUNICATIONS SPECIALIST Ot 959.19 08/02/2014 HANNAH, BELKIS R INTERNAL COMMUNICATIONS SPECIALIST Ot E000.8 08/02/2014 HANNAH, BELKIS R INTERNAL COMMUNICATIONS SPECIALIST Ot E849.0 08/02/2014 HANNAH, BELKIS R INTERNAL COMMUNICATIONS SPECIALIST Ot E885.9 08/03/2014 HANNAH INTERNAL COMMUNICATIONS SPECIALIST, BELKIS R 780.60 FEVER, UNSPECIFIED 08/03/2014 HANNAH INTERNAL COMMUNICATIONS SPECIALIST, BELKIS R 786.2 COUGH 08/03/2014 HANNAH INTERNAL COMMUNICATIONS SPECIALIST, BELKIS R 780.60 FEVER, UNSPECIFIED 08/03/2014 HANNAH INTERNAL COMMUNICATIONS SPECIALIST, BELKIS R 786.2 COUGH 08/03/2014 HANNAH INTERNAL COMMUNICATIONS SPECIALIST, BELKIS R 780.60 FEVER, UNSPECIFIED 08/03/2014 HANNAH INTERNAL COMMUNICATIONS SPECIALIST, BELKIS R 786.2 COUGH 08/03/2014 HANNAH INTERNAL COMMUNICATIONS SPECIALIST, BELKIS R 780.60 FEVER, UNSPECIFIED 08/03/2014 HANNAH INTERNAL COMMUNICATIONS SPECIALIST, BELKIS R 786.2 COUGH 08/03/2014 DAVID OPERATIONS REPRESENTATIVE, BARRINGTON M 780.60 FEVER, UNSPECIFIED 08/03/2014 DAVID OPERATIONS REPRESENTATIVE, BARRINGTON M 786.2 COUGH 08/03/2014 MACARIO DDS, CLEVE 780.60 FEVER, UNSPECIFIED 08/03/2014 MACARIO DDS, CLEVE 786.2 COUGH 08/03/2014 HELLWIG INTERNAL COMMUNICATIONS SPECIALIST, JIHAN E 780.60 FEVER, UNSPECIFIED 08/03/2014 HELLWIG INTERNAL COMMUNICATIONS SPECIALIST, JIHAN E 786.2 COUGH 08/14/2014 HANNAH, BELKIS R INTERNAL COMMUNICATIONS SPECIALIST Ot 724.1 08/14/2014 HANNAH, BELKIS R INTERNAL COMMUNICATIONS SPECIALIST Ot 959.19 08/14/2014 HANNAH, BELKIS R INTERNAL COMMUNICATIONS SPECIALIST Ot E000.8 08/14/2014 HANNAH, BELKIS R INTERNAL COMMUNICATIONS SPECIALIST Ot E849.0 08/14/2014 HANNAH, BELKIS R INTERNAL COMMUNICATIONS SPECIALIST Ot E885.9 08/26/2014 HANNAH, BELKIS R INTERNAL COMMUNICATIONS SPECIALIST Ot 715.36 08/26/2014 HANNAH, BELKIS R INTERNAL COMMUNICATIONS SPECIALIST Ot 724.2 08/26/2014 HANNAH, BELKIS R INTERNAL COMMUNICATIONS SPECIALIST Ot 738.4 08/26/2014 HANNAH, BELKIS R INTERNAL COMMUNICATIONS SPECIALIST Ot 724.1 08/26/2014 HANNAH, BELKIS R INTERNAL COMMUNICATIONS SPECIALIST Ot 959.19 08/26/2014 HANNAH, BELKIS R INTERNAL COMMUNICATIONS SPECIALIST Ot E000.8 08/26/2014 HANNAH BELKIS R INTERNAL COMMUNICATIONS SPECIALIST Ot E849.0 08/26/2014 HANNAH, BELKIS R INTERNAL COMMUNICATIONS SPECIALIST Ot E885.9 08/26/2014 LUZ RAZO INTERNAL COMMUNICATIONS SPECIALIST Ot 724.5 BACKACHE NOS 08/26/2014 LUZ RAZO APRN Ot 959.19 OTH INJURY OF OTHER SITES OF TRUNK 08/26/2014 LUZ RAZO INTERNAL COMMUNICATIONS SPECIALIST Ot E000.8 OTHER EXTERNAL CAUSE STATUS 08/26/2014 LUZ RAZO INTERNAL COMMUNICATIONS SPECIALIST Ot E849.0 ACCIDENT IN HOME 08/26/2014 LUZ RAZO INTERNAL COMMUNICATIONS SPECIALIST Ot E880.9 FALL ON STAIR/STEP NEC 08/29/2014 HANNAH GOLDSTEINN, BELKIS R 728.85 SPASM OF MUSCLE 08/29/2014 HANNAH INTERNAL COMMUNICATIONS SPECIALIST, BELKIS R 780.93 MEMORY LOSS 08/29/2014 HANNAH INTERNAL COMMUNICATIONS SPECIALIST, BELKIS R 728.85 SPASM OF MUSCLE 08/29/2014 HANNAH INTERNAL COMMUNICATIONS SPECIALIST, BELKIS R 780.93 MEMORY LOSS 08/29/2014 HANNAH INTERNAL COMMUNICATIONS SPECIALIST, BELKIS R 728.85 SPASM OF MUSCLE 08/29/2014 HANNAH INTERNAL COMMUNICATIONS SPECIALIST, BELKIS R 780.93 MEMORY LOSS 08/29/2014 BARRINGTON LOYA M 728.85 SPASM OF MUSCLE 08/29/2014 DAVID RAMIREZ, BARRINGTON M 780.93 MEMORY LOSS 08/29/2014 AMCARIO DDS, CLEVE 728.85 SPASM OF MUSCLE 08/29/2014 MACARIO DDS, CLEVE 780.93 MEMORY LOSS 08/29/2014 JIHAN ALDANA APRN 728.85 SPASM OF MUSCLE 08/29/2014 JIHAN ALDANA APRN 780.93 MEMORY LOSS 08/31/2014 HANNAH, BELKIS R INTERNAL COMMUNICATIONS SPECIALIST Ot 715.36 08/31/2014 HANANH, BELKIS R INTERNAL COMMUNICATIONS SPECIALIST Ot 724.2 08/31/2014 HANNAH, BELKIS R INTERNAL COMMUNICATIONS SPECIALIST Ot 738.4 08/31/2014 HANNAH, BELKIS R INTERNAL COMMUNICATIONS SPECIALIST Ot 724.1 08/31/2014 HANNAH, BELKIS R INTERNAL COMMUNICATIONS SPECIALIST Ot 959.19 08/31/2014 HANNAH BELKIS R INTERNAL COMMUNICATIONS SPECIALIST Ot E000.8 08/31/2014 HANNAH, BELKIS R INTERNAL COMMUNICATIONS SPECIALIST Ot E849.0 08/31/2014 HANNAH, BELKIS R INTERNAL COMMUNICATIONS SPECIALIST Ot E885.9 09/01/2014 HANNAH, BELKIS R INTERNAL COMMUNICATIONS SPECIALIST Ot 728.85 09/01/2014 HANNAH, BELKIS R INTERNAL COMMUNICATIONS SPECIALIST Ot 780.93 09/05/2014 HANNAH INTERNAL COMMUNICATIONS SPECIALIST, BELKIS R 266.2 VITAMIN B12 DEFICIENCY 09/05/2014 HANNAH INTERNAL COMMUNICATIONS SPECIALIST, BELKIS R 266.2 VITAMIN B12 DEFICIENCY 09/05/2014 DAVID RAMIREZ, [place] M 266.2 VITAMIN B12 DEFICIENCY 09/05/2014 MACARIO DDS, CLEVE 266.2 VITAMIN B12 DEFICIENCY 09/05/2014 [facility]N 266.2 VITAMIN B12 DEFICIENCY 09/20/2014 DAVID RAMIREZ, [place] M 780.52 INSOMNIA UNSPECIFIED 09/20/2014 MACARIO DDS, CLEVE 780.52 INSOMNIA UNSPECIFIED 09/20/2014 [facility] 780.52 INSOMNIA UNSPECIFIED 09/20/2014 HANNAH BELKIS R INTERNAL COMMUNICATIONS SPECIALIST Ot 715.36 09/20/2014 HANNAH BELKIS R INTERNAL COMMUNICATIONS SPECIALIST Ot 724.2 09/20/2014 HANNAH, BELKIS R INTERNAL COMMUNICATIONS SPECIALIST Ot 738.4 09/20/2014 HANNAH, BELKIS R INTERNAL COMMUNICATIONS SPECIALIST Ot 724.1 09/20/2014 HANNAH, BELKIS R INTERNAL COMMUNICATIONS SPECIALIST Ot 959.19 09/20/2014 HANNAH, BELKIS R INTERNAL COMMUNICATIONS SPECIALIST Ot E000.8 09/20/2014 HANNAH, BELKIS R INTERNAL COMMUNICATIONS SPECIALIST Ot E849.0 09/20/2014 HANNAH, BELKIS R INTERNAL COMMUNICATIONS SPECIALIST Ot E885.9 09/20/2014 HANNAH BELKIS R INTERNAL COMMUNICATIONS SPECIALIST Ot 728.85 09/20/2014 HANNAH BELKIS R INTERNAL COMMUNICATIONS SPECIALIST Ot 780.93 09/20/2014 GEMINI RUSH Ot 599.0 URIN TRACT INFECTION NOS 09/20/2014 GEMINI RUSH Ot 724.2 LUMBAGO 09/20/2014 GEMINI RUSH Ot 924.8 MULTIPLE CONTUSIONS NEC 09/20/2014 GEMINI RUSH Ot E000.8 OTHER EXTERNAL CAUSE STATUS 09/20/2014 GEMINI RUSH Ot E888.9 FALL NOS 09/22/2014 BELKIS YOUNG R INTERNAL COMMUNICATIONS SPECIALIST Ot 728.85 09/22/2014 HANNAH, BELKIS R INTERNAL COMMUNICATIONS SPECIALIST Ot 780.93 10/08/2014 JESÚS JONES, PEE Gtz Ot 625.9 FEM GENITAL SYMPTOMS NOS 10/08/2014 JESÚS JONES, PEE Gtz Ot 787.02 NAUSEA ALONE 10/18/2014 JIHAN ALDANA APRN 625.9 UNSPECIFIED SYMPTOM ASSOCIATED WITH FEMALE GENITAL ORGANS 10/20/2014 JIHAN ALDANA APRN V73.81 HPV SCREENING 10/20/2014 JIHAN ALDANA APRN V76.2 CERVICAL CANCER SCREENING (PAP SMEAR) 03/09/2015 HANNAH, BELKIS R INTERNAL COMMUNICATIONS SPECIALIST Ot 715.36 03/09/2015 HANNAH, BELKIS R INTERNAL COMMUNICATIONS SPECIALIST Ot 724.2 03/09/2015 HANNAH, BELKIS R INTERNAL COMMUNICATIONS SPECIALIST Ot 738.4 03/09/2015 HANNAH, BELKIS R INTERNAL COMMUNICATIONS SPECIALIST Ot 724.1 03/09/2015 HANNAH, BELKIS R INTERNAL COMMUNICATIONS SPECIALIST Ot 959.19 03/09/2015 HANNHA, BELKIS R INTERNAL COMMUNICATIONS SPECIALIST Ot E000.8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
[2017-12-26 11:20] VITALS: BP 147/115
[2017-12-26] MEDS ORDERED: propranolol (11:26)
[2017-12-26] MEDS ORDERED: DEXAMETHASONE PF 10 MG/ML (DECADRON) VIAL IM STA (11:56)
[2017-12-26] MEDS ORDERED: KETOROLAC 60 MG/2 ML VIAL IM STA (11:56)
--- NOTE | 2017-12-26 11:58 | ED Integumentary General ---
General Chief Complaint: Skin/Wound Problems Stated Complaint: RASH Nursing Triage Note: Patient advises she was seen approx. 3 weeks ago for an allergic reaction to an acne medication and was seen at the clinic and treated with a steroid and antibiotic. She advises approx. 1 week ago she switched laundry detergents and has been experiencing a generalized rash that has become increasingly worse. Source: patient Exam Limitations: no limitations History of Present Illness Date Seen by Provider: December 26, 2017 Time Seen by Provider: 11:42 Initial Comments 42 yo female patient presents to the ED with c/o a pruritic, painful rash of the torso, forearms, and face. She was reportedly seen at the clinic 3 wks ago for an allergic reaction due to OTC acne medication. She was given an antibiotic and steroid. The rash did improve initially. 1 wk ago she switched to a generic laundry detergent. Rash is progressively getting worse. Started out as pustules. Now is scabs. Also reports increased stress at home. She works at [employer]. Location: face, torso, extremities (bilat forearms) Possible Cause: no cause identified Modifying Factors: worse with scratching, worse with other (worse with palpation) Allergies and Home Medications Allergies Coded Allergies: Penicillins (Unverified Allergy, Mild, 12/07/08) codeine (Verified Allergy, Unknown, 01/21/14) morphine (Verified Adverse Reaction, Mild, VOMITING, 09/28/12) tramadol (Unverified Adverse Reaction, Mild, itching, 07/26/14) Home Medications Doxylamine Succinate 25 Mg Tablet, 50 MG PO HS, (Reported) TAKES 2 (25 MG) TABLETS Ibuprofen 200 Mg Tablet, 800 MG PO BID PRN for PAIN, (Reported) Permethrin 60 Gm Cream..g., 60 GM TP UD use as directed by the hanging flags decorator. Repeat in 14 days. Prescribed by: GEMINI NOVOA on 12/26/17 1249 Prednisone 20 Mg Tab, 40 MG PO DAILY Prescribed by: GEMINI NOVOA on 12/26/17 1249 Sulfamethoxazole/Trimethoprim 1 Each Tablet, 1 EACH PO BID Prescribed by: MARTÍN GALAN on 10/11/17 1030 Patient Home Medication List Home Medication List Reviewed: Yes Constitutional: No chills, No diaphoresis, No fever, No malaise EENTM: no symptoms reported Respiratory: No cough, No short of breath, No stridor, No wheezing Cardiovascular: no symptoms reported Gastrointestinal: no symptoms reported Musculoskeletal: No back pain, No joint pain, No neck pain Skin: see HPI, pruritus, rash Psychiatric/Neurological: Anxiety (long h/o anxiety. worse with recent stress. denies suicidal or homicidal ideation.); Denies Headache, Denies Numbness, Denies Paresthesia, Denies Tingling All Other Systems Reviewed Negative Unless Noted: Yes (Negative excepted noted.) Past Fdmkzin-Utlneo-Fwflcn Hx Patient Social History Alcohol Use: Denies Use Recreational Drug Use: No Smoking Status: Current Everyday Smoker Type Used: Cigarettes Recent Foreign Travel: No Contact w/Someone Who Travel: No Recent Infectious Disease Expo: No Recent Hopitalizations: No Physical Abuse: No Sexual Abuse: No Immunizations Up To Date Tetanus Booster (TDap): Less than 5yrs Date of Influenza Vaccine: May 24, 2014 Seasonal Allergies Seasonal Allergies: Yes Past Medical History Surgeries: Yes (Ureterovesicular surgery) Bladder Surgery, Section, Gallbladder, Hysterectomy, Tubal Ligation Respiratory: No Cardiac: Yes Hypertension Neurological: No 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 Disorders: Yes (CPP, MENORRHAGIA, CINIII) Female 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 Disorders: 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 advises she has a hx. of depression that she feels is well controlled at this time but advises she is under an emense amount of stress right now and has been experiencing increased anxiety with a hx. of anxiety. Integumentary: Yes (patient did have varicella zoster as a child.) Recent Skin Changes Blood Disorders: Yes (ANEMIA) Family Medical History Reviewed Nursing Family Hx No Pertinent Family Hx Physical Exam Vital Signs Vital Signs - First Documented 12/26/17 11:12 Temp 97.7 Pulse 104 Resp 18 B/P (MAP) 147/115 (126) Pulse Ox 100 O2 Delivery Room Air Capillary Refill : Less Than 3 Seconds General Appearance: WD/WN, no apparent distress, obese HEENT: PERRL/EOMI, pharynx normal, other (numerous scabbed erythematous macules of the face) Neck: non-tender, full range of motion, supple, normal inspection Cardiovascular: normal peripheral pulses, regular rate, rhythm, no edema, no murmur Respiratory: lungs clear, normal breath sounds, no respiratory distress, no accessory muscle use, other (numerous scabbed erythematous macules of the bilateral breasts/anterior chest. ) Gastrointestinal: normal bowel sounds, non tender, soft, other (numerous scabbed erythematous macules of the abdominal. ) Back: normal inspection Extremities: no pedal edema, normal capillary refill, other (numerous scabbed erythematous macules of the bilateral forearms with exoriations.) Neurologic/Psychiatric: alert, oriented x 3, other (increased rate of speech, very anxious, avoids eye contact. ) Skin: normal color, warm/dry, rash Skin Problem Location: face, upper extremities (bilateral posterior forearms), torso (anterior chest/breasts and abdomen) Skin Problem Character: macules, rash, other (scabs) Progress/Results/Core Measures Results/Orders My Orders Orders - GEMINI NOVOA Alprazolam Tablet (Xanax Tablet) (12/26/17 12:00) Ketorolac Injection (Toradol Injection) (12/26/17 11:56) Dexamethasone Pf Injection (Decadron Pf (12/26/17 11:56) Loratadine Tablet (Claritin Tablet) (12/26/17 12:00) Famotidine Tablet (Pepcid Tablet) (12/26/17 12:00) Dexamethasone Injection (Decadron Inject (12/26/17 12:19) Medications Given in ED Current Medications Medications Dose Ordered Sig/Rubi Route Start Time Stop Time Status Last Admin Dose Admin Alprazolam 0.5 mg ONCE ONCE PO 12/26/17 12:00 12/26/17 12:01 DC 12/26/17 12:27 0.5 MG Dexamethasone Sodium Phosphate 10 mg STK-MED ONCE .ROUTE 12/26/17 12:19 12/26/17 12:24 DC 12/26/17 12:27 10 MG Famotidine 20 mg ONCE ONCE PO 12/26/17 12:00 12/26/17 12:01 DC 12/26/17 12:27 20 MG Loratadine 10 mg ONCE ONCE PO 12/26/17 12:00 12/26/17 12:01 DC 12/26/17 12:34 10 MG Vital Signs/I&O 12/26/17 12/26/17 11:12 11:20 Temp 97.7 97.7 Pulse 104 104 Resp 18 B/P (MAP) 147/115 (126) 147/115 (126) Pulse Ox 100 100 O2 Delivery Room Air Room Air Blood Pressure Mean: 126 Departure Impression Primary Impression: Dermatitis Disposition: HOME, SELF-CARE Condition: Improved Departure-Patient Inst. Decision time for Depature: 12:46 Referrals: [facility] (PCP/Family) Primary Care Physician Patient Instructions: Dermatitis, Scabies (DC) Add. Discharge Instructions: All discharge instructions reviewed with patient and/or family. Voiced understanding. Medications as instructed. Benadryl [id number] as directed for itching and rash. Pepcid [id number] 20 mg by mouth twice daily as needed for itching and the rash. Wash all bedding and clothing in hot water. Follow[facility]up with [facility] for recheck as an outpatient if no improvement in symptoms. Return to the emergency department for worsened symptoms, difficulty swallowing, difficulty breathing, vomiting, swelling of the face/throat/tongue, or any other concerns. Scripts Prednisone (Prednisone) 20 Mg Tab 40 MG PO DAILY, #10 TAB 0 Refills Prov: GEMINI NOVOA 12/26/17 Permethrin (Permethrin) 60 Gm Cream..g. 60 GM TP UD, #1 TUBE 1 Refill use as directed by the hanging flags decorator. Repeat in 14 days. Prov: GEMINI NOVOA 12/26/17 Work/School Note: Work Release Form Date Seen in the Emergency Department: December 26, 2017 Return to Work: December 28, 2017 GEMINI NOVOA December 26, 2017 11:58
[2017-12-26] MEDS ORDERED: ALPRAZolam 0.25 MG (XANAX) TAB PO ONE (12:00)
[2017-12-26] MEDS ORDERED: LORATADINE (CLARITIN) 10 MG TAB PO ONE (12:00)
[2017-12-26] MEDS ORDERED: FAMOTIDINE 20 MG (PEPCID) TABLET PO ONE (12:00)
[2017-12-26] MEDS ORDERED: DEXAMETHASONE 10 MG/ML (DECADRON) 1 ML VIAL ONE (12:19)
[2017-12-26] MEDS ORDERED: PRD20T PO (12:49)
[2017-12-26] MEDS ORDERED: PERM60CR4 TP (12:49)
[2017-12-26 12:55] VITALS: BP 157/103
== END 2017-12-26 12:56 | disposition home or self-care (01) ==
LOC: EDUNIT# 10:47 → ER 10:48
DX: L30.9 Dermatitis, unspecified (principal); I10 Essential (primary) hypertension; E03.9 Hypothyroidism, unspecified; F41.9 Anxiety disorder, unspecified; F32.9 Major depressive disorder, single episode, unspecified; G47.9 Sleep disorder, unspecified; F17.210 Nicotine dependence, cigarettes, uncomplicated; Z87.59 Personal history of other complications of pregnancy, childbirth and the puerperium; Z90.710 Acquired absence of both cervix and uterus; Z98.51 Tubal ligation status; Z87.81 Personal history of (healed) traumatic fracture; Z85.41 Personal history of malignant neoplasm of cervix uteri; Z88.0 Allergy status to penicillin; Z88.5 Allergy status to narcotic agent
CPT/HCPCS: 96372; 96374; 99284

== ENCOUNTER 2017-12-28 09:26 | Emergency (ER) | payer MEDICAID ==
[~2017-12-28] VITALS: Ht 154.9 cm; Wt 108.9 kg
[~2017-12-28 09:26] MED LIST changes: +PERM60CR4 TP; +PRD20T PO; +propranolol
[2017-12-28] MEDS ORDERED: NAPR-1071 PO (10:41)
[2017-12-28] MEDS ORDERED: SULF1TAB35 PO (10:41)
--- NOTE | 2017-12-28 10:42 | ED Integumentary General ---
General Chief Complaint: Skin/Wound Problems Stated Complaint: RASH Nursing Triage Note: TO ROOM WAS SEEN IN ED ON THURSDAY WAS GIVEN MEDS FOR RASH ALL OVER BODY REPORTS AFTER USING THE CREAM AREA BURNING. PATIENT REPORTRS THAT SHE READ WHERE SHE CAN HAVE BURNING. AFTER USE. Source: patient Exam Limitations: no limitations History of Present Illness Date Seen by Provider: December 28, 2017 Time Seen by Provider: 10:38 Initial Comments To ER with reports of a painful rash. She was seen here on Thursday and given permethrin cream and steroid burst for a rash to the dorsal aspect of the forearms and anterior chest and face. No known cause. She applied the permethrin cream and now had a burning sensation all over. Timing/Duration: constant Severity: moderate Allergies and Home Medications Allergies Coded Allergies: Penicillins (Unverified Allergy, Mild, 12/07/08) codeine (Verified Allergy, Unknown, 01/21/14) morphine (Verified Adverse Reaction, Mild, VOMITING, 09/28/12) tramadol (Unverified Adverse Reaction, Mild, itching, 07/26/14) Home Medications Doxylamine Succinate 25 Mg Tablet, 50 MG PO HS, (Reported) TAKES 2 (25 MG) TABLETS Ibuprofen 200 Mg Tablet, 800 MG PO BID PRN for PAIN, (Reported) Permethrin 60 Gm Cream..g., 60 GM TP UD use as directed by the electric power line examiner. Repeat in 14 days. Prescribed by: GEMINI NOVOA on 12/26/17 1249 Prednisone 20 Mg Tab, 40 MG PO DAILY Prescribed by: GEMINI NOVOA on 12/26/17 1249 Sulfamethoxazole/Trimethoprim 1 Each Tablet, 1 EACH PO BID Prescribed by: MARTÍN GALAN on 10/11/17 1030 Patient Home Medication List Home Medication List Reviewed: Yes Constitutional: see HPI EENTM: see HPI Respiratory: no symptoms reported Cardiovascular: no symptoms reported Genitourinary: no symptoms reported Musculoskeletal: see HPI Skin: see HPI Past Tvabrff-Ebxsxe-Rbukvd Hx Patient Social History Alcohol Use: Denies Use Recreational Drug Use: No Smoking Status: Current Everyday Smoker Type Used: Cigarettes Recent Foreign Travel: No Contact w/Someone Who Travel: No Recent Infectious Disease Expo: No Recent Hopitalizations: No Immunizations Up To Date Tetanus Booster (TDap): Less than 5yrs Date of Influenza Vaccine: May 24, 2014 Seasonal Allergies Seasonal Allergies: Yes Past Medical History Surgeries: Yes (Ureterovesicular surgery) Bladder Surgery, Section, Gallbladder, Hysterectomy, Tubal Ligation Respiratory: No Cardiac: Yes Hypertension Neurological: No 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 Disorders: Yes (CPP, MENORRHAGIA, CINIII) Female 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 Disorders: Menstrual 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 Sexually Transmitted Disease: Yes Kidney Stones, Neurogenic Bladder, UTI-Chronic Gastrointestinal: Yes Gastroesophageal Reflux, Irritable Bowel Musculoskeletal: Yes (compression fracture) Arthritis, Fibromyalgia, Chronic Back Pain, Fractures Endocrine: Yes Hypothyroidsim Cancer: Yes Cervical Psychosocial: Yes Sleep Difficulties, Anxiety Integumentary: Yes (patient did have varicella zoster as a child.) Recent Skin Changes Blood Disorders: Yes (ANEMIA) Family Medical History No Pertinent Family Hx Physical Exam Vital Signs Vital Signs - First Documented 12/28/17 09:33 Temp 96.5 Pulse 90 B/P (MAP) 135/105 (115) O2 Delivery Room Air Capillary Refill : Less Than 3 Seconds General Appearance: WD/WN, no apparent distress HEENT: PERRL/EOMI, normal ENT inspection Neck: non-tender, full range of motion Respiratory: no respiratory distress, no accessory muscle use Gastrointestinal: normal bowel sounds, non tender Extremities: normal range of motion, non-tender Neurologic/Psychiatric: alert, normal mood/affect, oriented x 3 Skin: normal color, warm/dry Comments Small 4-5 mm scabbed areas to the anterior legs, dorsal forearms, anterior chest and face, nothing to the back, back of the legs. No erythema surrounding these to suggest cellulitis. She's very anxious and restless. Progress/Results/Core Measures Results/Orders Vital Signs/I&O 12/28/17 09:33 Temp 96.5 Pulse 90 B/P (MAP) 135/105 (115) O2 Delivery Room Air Blood Pressure Mean: 115 Departure Impression Primary Impression: Skin lesion Disposition: 01 HOME, SELF-CARE Condition: Stable Departure-Patient Inst. Decision time for Depature: 10:40 Referrals: [facility] (PCP/Family) Primary Care Physician Patient Instructions: Skin Rash Scripts Sulfamethoxazole/Trimethoprim (Bactrim Ds Tablet) 1 Each Tablet 1 EACH PO BID, #10 TAB Prov: LUZ RAZO HOTHOUSE WORKER 12/28/17 Naproxen (Naprosyn) 500 Mg Tablet 500 MG PO BID PRN for PAIN-MODERATE TO SEVERE, #30 TAB Prov: LUZ RAZO APRN 12/28/17 LUZ RAZO APRN December 28, 2017 10:42
[2017-12-28 10:56] VITALS: BP 135/100
== END 2017-12-28 10:56 | disposition home or self-care (01) ==
LOC: EDUNIT# 09:26 → ER 09:30
DX: L98.9 Disorder of the skin and subcutaneous tissue, unspecified (principal); I10 Essential (primary) hypertension; F41.9 Anxiety disorder, unspecified; E03.9 Hypothyroidism, unspecified; K21.9 Gastro-esophageal reflux disease without esophagitis; F17.210 Nicotine dependence, cigarettes, uncomplicated; Z88.0 Allergy status to penicillin; Z85.41 Personal history of malignant neoplasm of cervix uteri; Z98.51 Tubal ligation status; Z86.19 Personal history of other infectious and parasitic diseases; Z87.19 Personal history of other diseases of the digestive system; Z87.442 Personal history of urinary calculi; Z87.440 Personal history of urinary (tract) infections; Z90.710 Acquired absence of both cervix and uterus; Z87.59 Personal history of other complications of pregnancy, childbirth and the puerperium; Z88.5 Allergy status to narcotic agent; Z88.6 Allergy status to analgesic agent; Z79.52 Long term (current) use of systemic steroids
CPT/HCPCS: 99282

== ENCOUNTER 2018-05-05 18:34 | Emergency (ER) | payer MEDICAID ==
[~2018-05-05] VITALS: Ht 154.9 cm; Wt 122.5 kg
[~2018-05-05 18:34] MED LIST changes: +NAPR-1071 PO; +SULF1TAB35 PO
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
[2018-05-05 18:40] VITALS: BP 158/92
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
--- OUTSIDE RECORDS SUMMARY | 2018-05-05 18:43 | XMS REPORT ---
Author Author [facility] Address [address] [place] [address] Care Team Providers Care Machine Tracer Name Role Phone [facility] Unavailable PROBLEMS Type Condition ICD9-CM Code LDK21-MN Code Onset Dates Condition Status SNOMED Code Problem Gastroesophageal reflux disease without esophagitis K21.9 Active 447713064 Problem Essential hypertension I10 Active 69145008 Problem Arthritis M19.90 Active 9723025 Problem IBS (irritable bowel syndrome) K58.9 Active 85789369 Problem Hypomagnesemia E83.42 Active 088495615 Problem Idiopathic peripheral neuropathy G60.9 Active 95789675 Problem Primary insomnia F51.01 Active 1491081 Problem Fibromyalgia M79.7 Active 12877582 Problem Long-term use of high-risk medication Z79.899 Active 412818092 Problem Bipolar depression F31.30 Active 56183224 ALLERGIES Substance Reaction Event Type Date Status Tramadol HCl itching Drug Allergy December, Active Penicillin V Potassium shock Drug Allergy December, Active Naproxen Unknown Drug Allergy December, Active Ambien dangerous activites while sleeping Drug Allergy December, Active Morphine hives, vomiting Drug Allergy December, Active ENCOUNTERS Encounter Location Date Diagnosis [place] [id number] [place] [address]62- 0778 Mar, BMI 50.0-59.9, adult Z68.43 ; Essential hypertension I10 ; Fibromyalgia M79.7 ; Left hip pain M25.552 and Risk factors for obstructive sleep apnea Z91.89 [facility] [address] [place] [address]155 Feb, Low back pain, unspecified back pain laterality, unspecified chronicity, with sciatica presence unspecified M54.5 and BMI 50.0- 59.9, adult Z68.43 [place] [address] [place] [id number] [place] [address] 78614- 3333 16 Feb, 2018 Fibromyalgia M79.7 [place] [address] [address] 6[address] 18 Jan, 2018 Fibromyalgia M79.7 [place] [address] 81895- 2083 13 Jan, 2018 [place] [address] 27274[address]294 Jan, Left hip pain M25.552 ; Gastroesophageal reflux disease without esophagitis K21.9 ; Fibromyalgia M79.7 ; Essential hypertension I10 ; Hypomagnesemia E83.42 and BMI 45.0-49.9, adult Z68.[address] [address]- [address] 12 Jan, [address] [address] December, Fibromyalgia M79.7 [facility] [address] [address] December, Skin lesions L98.9 and BMI 45.0-49.9, adult Z68.42 [facility] [place] [id number] [place] [address] 35182 -8357 Nov, [facility] [address] [address] Nov, Impetigo L01.00 ; Allergic contact dermatitis due to cosmetics L23.2 and BMI 45.0-49.9, adult Z68.[address] [address]- 68[address] Oct, [place] [address] [place] [id number] [place] [address] 62887- 5580 Oct, Essential hypertension I10 ; Gastroesophageal reflux disease without esophagitis K21.9 ; Arthritis M19.90 ; Fibromyalgia M79.7 ; Primary insomnia F51.01 ; Long-term use of high-risk medication Z79.899 and BMI 45.0-49.9, adult Z68.42 [place] [address] 23910- 4248 14 Oct, 2017 [place] [address] 22400- 6957 12 Sep, 2017 Fibromyalgia M79.7 [facility] [address] [address] 17 Aug, 2017 Dysuria R30.0 ; Facial injury, initial encounter S09.93XA and BMI 45.0-49.9, adult Z68.42 [place] [address] 71288- 9743 11 Aug, [address] [address]- 3890 Aug, Fibromyalgia M79.[address] 45230- 7532 11 Jul, 2017 Fibromyalgia M79.7 [facility] [address] 8[address]0959 08 Jul, 2017 Dysuria R30.0 ; Bladder spasm N32.89 and BMI 45.0-49.9, adult Z68.42 [facility] [address] [address]91 05 Jul, 2017 Acute cystitis without hematuria N30.00 and BMI 40.0-44.9, adult Z68.41 [place] [address] 47627- 6632 28 Jun, 2017 Fibromyalgia M79.7 ; Long-term use of high-risk medication Z79.899 ; Primary insomnia F51.01 ; Arthritis M19.90 ; Idiopathic peripheral neuropathy G60.9 ; BMI 40.0-44.9, adult Z68.41 ; Acquired hypothyroidism E03.9 and Gastroesophageal reflux disease without esophagitis K21.9 [place] [address] [place] [id number] [place] [address] 85598- 6596 May, [place] [address] 78183- 0397 May, Pain in joint involving left ankle and foot M25.572 [facility] [address] [id number] Oct, Dental caries K02.9 [facility] [address] [id number] Oct, Dental examination Z01.20 [place] [address] 92690- 3193 Aug, Idiopathic peripheral neuropathy G60.9 and Fibromyalgia M79.[address] 71304- 3838 Aug, Fibromyalgia M79.7 ; Essential hypertension I10 ; Long-term use of high-risk medication Z79.899 ; Primary insomnia F51.01 ; Arthritis M19.90 ; Viral syndrome B34.9 and Idiopathic peripheral neuropathy G60.9 [place] [address] [place] [id number] [place] [address] 72656- 6560 Jun, [facility] [place] [id number] [place] [address] 06089 -9868 Jun, Other constipation K59.09 [facility] [address] 26531 -0872 Jun, Viral syndrome B34.9 [place] [address] [place] [id number] [place] [address] 78223- 8456 Jun, Fibromyalgia M79.7 ; Essential hypertension I10 ; Long-term use of high-risk medication Z79.899 ; Abnormal thyroid blood test R94.6 and Ganglion cyst of wrist, right M67.431 [place] [address] 74500- 8169 Feb, [place] [address] [place] [address] 18010- 9070 Sep, [place] [address] [place] [id number] [place] [address] 90815- 2550 Aug, Bipolar depression F31.30 [place] [address] [place] [id number] [place] [address] 72682- 3917 Aug, Essential hypertension I10 ; Arthritis M19.90 ; Left hip pain M25.552 ; Sacroiliac joint pain M53.3 ; Bipolar depression F31.30 and Primary insomnia F51.[address] 68817- 1109 Jun, Arthritis M19.90 ; Acquired hypothyroidism E03.9 ; Gastroesophageal reflux disease without esophagitis K21.9 ; IBS (irritable bowel syndrome) K58.9 ; Essential hypertension I10 and Fibromyalgia M79.7 [place] [id number] [place] [address] 46019- 9483 May, Fibromyalgia M79.7 [place] [id number] [place] [address] 60573- 5747 Feb, HTN (hypertension) 401.9 ; Arthralgia 719.40 ; Obesity 278.00 and Fibromyalgia 729.1 [place] [id number] [place] [address] 97451- 6476 Jan, [place] [id number] [place] [address] 92230- 7899 Jan, Abnormal thyroid blood test 794.5 [place] [id number] [place] [address] 86480- 5161 Jan, Anemia 285.9 ; HTN (hypertension) 401.9 ; Arthralgia 719.40 ; Obesity 278.00 and Fatigue 780.79 [facility] [id number] [place] [id number] December, [place] [id number] [place] [address] 81852 2546 December, [facility] [address] [place] [id number] [id number] Nov, Other chronic pain 338.29 ; Essential hypertension, benign 401.1 ; Irritable bowel syndrome 564.1 and Anxiety state, unspecified 300.00 [facility] [address] [address]- 0[address] Nov, [facility] [address] [address]- 4816 Nov, [facility] [address], [place] [address]- 6468 Oct, [facility] [place] [facility] [address], [place] [address]- 6896 Oct, [facility] [address], [place] [address]- 4586 Oct, [facility] [place] [facility] [address], [place] [address]- 6116 Oct, [facility] [address], [place] [address]- 5616 Oct, [facility] [id number] [place] [id number] Oct, [facility] [address], [place] [address]- 2046 Oct, [facility] [place] [facility] [address] [place] [id number] [address]- 2546 Oct, [facility] [place] [facility] [address] [place] [id number] [address]- 2546 Oct, [facility] [place] [facility] [address], [place] [address]- 2546 Sep, [facility] [address] [place] [id number] [place] [address] Sep, [facility] [address] [address] Sep, [facility] [place] [address] [facility] [id number], [place] [address]- 1846 Sep, [facility] [address] [facility] [id number] [place] [id number] Sep, [facility] [address] [facility] [id number] [place] [address] Sep, [facility] [place] [address] [facility] [id number], [place] [address]- 6276 Sep, [facility] [place] [facility] [address] [facility] [id number], [place] [address]- 2794 Sep, [facility] [address] [facility] [id number] [place] [id number] Sep, [facility] [place] [facility] [address], [place] [address]- 4732 Sep, [facility] [place] [facility] [address] [place] [id number] [address]- 6321 Sep, [facility] [place] [facility] [address] [place] [id number], [place] [address]- 5556 Sep, [facility] [place] [facility] [address] [place] [id number], [place] [address]- 3782 Sep, [facility] [place] [facility] [address], [place] [address]- 1916 Sep, [facility] [address] [facility] [id number] [place] [id number] Aug, [facility] [place] [address] [facility] [id number], [place] [address]- 8851 Aug, [facility] [place] [facility] [address] [facility] [id number], [place] [address]- 3713 Aug, [facility] [place] [facility] [address] [facility] [id number], [place] [address]- 6394 Aug, [facility] [place] [facility] [address], [place] [address]- 7178 Aug, [facility] [place] [facility] [address] [id number] [place] [address]- 2876 Aug, [facility] [place] [facility] [address] [id number], [place] [address]- 4614 Aug, [facility] [address] [id number] [place] [id number] Aug, [facility] [place] [facility] [address] [id number], [place] [address]- 5097 Aug, [facility] [place] [facility] [address] [id number] [place] [address]- 8129 Aug, [facility] [place] [facility] [address] [id number] [place] [address]- 2672 Aug, [facility] [place] [facility] [address] [id number], [place] [address]- 1090 Aug, [facility] [place] [facility] [address] [id number], [place] [address]- 6214 Aug, [facility] [place] [facility] [address] [id number], [place] [address]- 6476 Aug, [facility] [place] [facility] [address] [id number], [place] [address]- 1562 Aug, [facility] [place] [facility] [address] [id number] [address]- 8241 Aug, [facility] [place] [facility] [address] [id number], [place] [address]- 0438 Aug, [facility] [place] [facility] [address] [id number], [place] [address]- 4699 Aug, [facility] [place] [facility] [address] [id number], [place] [address]- 8213 Aug, [facility] [place] [facility] [address] [id number], [place] [address]- 5730 Aug, [facility] [place] [facility] [address] [id number] [place] [address]- 4873 Aug, [facility] [place] [facility] [address] [id number] [place] [address]- 6601 Aug, [facility] [place] [facility] [address] [id number] [place] [address]- 7822 Aug, [facility] [place] [facility] [address] [id number] [place] [address]- 8189 Aug, [facility] [place] [facility] [address] [id number] [place] [address]- 5750 Aug, [facility] [place] [facility] [address] [id number] [place] [address]- 7726 Aug, [facility] [place] [facility] [address] [id number] [place] [address]- 6804 Aug, [facility] [place] [facility] [address] [id number] [place] [address]- 4926 Aug, [facility] [place] [facility] [address] [id number] [place] [address]- 6506 Aug, [facility] [place] [facility] [address] [id number] [place] [address]- 7069 Aug, [facility] [place] [facility] [address] [facility] [id number] [place] [address]- 0941 Aug, [facility] [place] [facility] [address] [id number] [place] [address]- 4840 Aug, [facility] [place] [facility] [address] [id number] [place] [address]- 9052 Jul, [facility] [place] [facility] [address] [id number] [place] [address]- 8704 Jul, [facility] [place] [facility] [address] [id number] [place] [address]- 8981 Jul, [facility] [place] [facility] [address] [id number] [place] 9978 Jul, [facility] [place] [facility] [address] [id number] [place] 9319 Jul, [facility] [place] [facility] [address] [id number] [place] [address]- 3928 Jul, [facility] [place] [facility] [address] [id number] [place] [address]- 9353 Jul, [facility] [place] [facility] [address] [id number] [place] [address]- 2353 Jul, [facility] [place] [facility] [address] [id number] [place] [address]- 0910 Jul, [facility] [place] [facility] [address] [id number] [place] [address]- 4757 Jul, [facility] [place] [facility] [address] [id number] [place] [address]- 5872 Jul, [facility] [place] [facility] [address] [id number] [place] [address]- 7233 Jul, [facility] [place] [facility] [address] [id number] [place] [address]- 8449 Jun, [facility] [place] [facility] [address] [id number] [place] [address]- 7949 Jun, [facility] [place] [facility] [address] [id number] [place] [address]- 6530 Jun, [facility] [place] [facility] [address] [id number] [place] [address]- 3482 Jun, [facility] [place] [facility] [address] [id number] [place] [address]- 9640 Jun, [facility] [place] [facility] [address] [id number] [place] [address]- 7801 Jun, [facility] [place] [facility] [address] [id number] [place] [address]- 5484 Jun, [facility] [place] [facility] [address] [id number] [place] [address]- 8727 Jun, [facility] [place] [facility] [address] [id number] [place] [address]- 7803 Jun, [facility] [place] [facility] [address] [id number] [place] [address]- 4340 Jun, [facility] [place] [facility] [address] [id number] [place] [address]- 5431 May, [facility] [place] [facility] [address] [id number] [place] [address]- 3716 May, [facility] [place] [facility] [address] [id number] [place] [address]- 0905 May, [facility] [place] [facility] [address] [id number] [place] [address]- 6780 May, [facility] [place] [facility] [address] [id number] [place] [address]- 7570 May, [facility] [place] [facility] [address] [id number] [place] [address]- 2654 May, [facility] [place] [facility] [address] [id number] [place] [address]- 8472 May, [facility] [place] [facility] [address] [id number] [place] [address]- 1557 May, [facility] [place] [facility] [address] [id number] [place] [address]- 0307 Apr, [facility] [place] [facility] [address] [id number] [place] [address]- 4326 Apr, [facility] [place] [facility] [address] [id number] [place] [address]- 7527 Mar, [facility] [place] [facility] [address] [id number] [place] [address]- 4990 Mar, [facility] [place] [facility] [address] [id number] [place] 1544 Feb, [facility] [place] [facility] [address] [id number] [place] [address]- 9430 Feb, [facility] [address] [id number] [place] [address]- 8505 December, [facility] [place] [facility] [address] [id number] [place] [address]- 5070 December, [facility] [address] [id number] [place] [address]- 8923 December, [facility] [address] [id number] [place] [address]- 9603 December, [facility] [address] [id number] [place] 3899 December, [facility] [address] [id number] [place] [address]- 7338 December, [facility] [address] [id number] [place] [address]- 4666 December, [facility] [address] [id number] [place] [address]- 4182 December, [facility] [address] [id number] [place] [address]- 0308 Nov, [facility] [address] [id number] [place] [address]- 3196 Nov, [facility] [place] [facility] [address] [id number] [place] [address]- 2965 Nov, [facility] [place] [facility] [address] [id number] [place] [address]- 9077 Nov, [facility] [place] [facility] [address] [id number] [place] 4545 Nov, [facility] [place] [facility] [address] [id number] [place] [address]- 8472 Nov, [facility] [place] [facility] [address] [id number] [place] [address]- 0485 Nov, [facility] [address] [id number] [place] [address]- 3046 Nov, [facility] [place] [facility] [address] [id number] [place] [address]- 9125 Nov, [facility] [place] [facility] [address] [id number] [place] 3757 Nov, [facility] [place] [facility] [address] [id number] [place] [address]- 6527 Oct, [facility] [place] [facility] [address] [id number] [place] [address]- 5154 Oct, [facility] [place] [facility] [address] [id number] [place] [address]- 4705 Sep, [facility] [place] [facility] [address] [id number] [place] [address]- 8161 Sep, [facility] [place] [facility] [address] [id number] [place] [address]- 3746 Aug, [facility] [place] [facility] [address] [id number] [place] [address]- 1234 Aug, [facility] [place] [facility] [address] [id number] [place] [address]- 8192 Aug, [facility] [place] [facility] [address] [id number] [place] [address]- 5927 Aug, [facility] [place] [facility] [address] [id number] [place] [address]- 3083 Jul, [facility] [place] [facility] [address] [id number] [place] [address]- 0616 Jul, [facility] [place] [facility] [address] [id number] [place] [address]- 9023 Jul, [facility] [place] [facility] [address] [id number] [place] 8791 Jul, [facility] [place] [facility] [address] [id number] [place] [address] Jun, [facility] [place] [facility] [address] [id number] [place] [address] Jun, [facility] [place] [facility] [address] [id number] [place] [address] May, [facility] [place] [facility] [address] [id number] [place] [address] May, [facility] [place] [facility] [address] [id number] [place] [address] May, [facility] [place] [facility] [address] [id number] [place] [address] May, [facility] [place] [facility] [address] [id number] [place] [address] Apr, [facility] [place] [facility] [address] [id number] [place] [address] Apr, [facility] [place] [facility] [address] [id number] [place] [address] Apr, [facility] [place] [facility] [address] [id number] [place] [address] Apr, [facility] [place] [facility] [address] [id number] [place] [address] Apr, [facility] [place] [facility] [address] [id number] [place] [address] Mar, [facility] [place] [facility] [address] [id number], [place] [address] Mar, [facility] [place] [facility] [address] [id number] [place] [address] Mar, [facility] [place] [facility] [address] [id number] [place] [address] Mar, [facility] [address] [id number] [place] [id number] Feb, [facility] [address] [id number] [place] [id number] Feb, [facility] [address] [id number] [place] [address] Feb, [facility] [place] [facility] [address] [id number] [place] [address] Feb, [facility] [address] [id number] [place] [address] Jan, [facility] [place] [facility] [address] [id number] [place] [address] Jan, [facility] [address] [id number] [place] [address] Jan, [facility] [address] [id number] [place] [address] December, [facility] [address] [id number] [place] [address] December, [facility] [address] [id number] [place] [address] Nov, [facility] [address] [id number] [place] [address] Nov, [facility] [address] [id number] [place] [address] Nov, [facility] [address] [id number] [place] [address] Oct, [facility] [address] [id number] [place] [address] Sep, [facility] [place] [facility] [address] [id number] [place] [address] Sep, [facility] [place] [facility] [address] [id number] [place] [address] Sep, [facility] [place] [facility] [address] [id number] [place] [address] Aug, [facility] [address] [facility] [id number] [place] [address] May, [facility] [address] [facility] [id number] [address] [address] May, [facility] [address] [facility] [id number] [place] [address] December, IMMUNIZATIONS No Known Immunizations SOCIAL HISTORY Never Assessed REASON FOR VISIT rash Pt c/o possible chicken pox, started with a fever on Thursday and still has rash today BLACK Olson PLAN OF CARE Activity Details Follow Up prn Reason: VITAL SIGNS Height 62 in 2018-01-01 Weight 262.0 lbs 2018-01-01 Temperature 96.7 degrees Fahrenheit 2018-01-01 Heart Rate 99 bpm 2018-01-01 Respiratory Rate 20 2018-01-01 BMI 47.92 kg/m2 2018-01-01 Blood pressure systolic 142 mmHg 2018-01-01 Blood pressure diastolic 90 mmHg 2018-01-01 MEDICATIONS Medication Instructions Dosage Frequency Start Date End Date Duration Status Lyrica 100 mg Orally 3 times a day 1 capsule 8h Oct, 28 days Active Cymbalta 30 MG Orally Once a day 3 capsule 24h 30 days Active Omeprazole 20 MG Orally Once a day 1 capsule 24h Jun, 30 day(s ) Active Ibuprofen 800 MG Orally Three times a day prn 1 tablet 30 Active Propranolol HCl ER 60 mg Orally Once a day 1 capsule 24h Oct, 30 day(s) Active Amitriptyline HCl 75 MG Orally Once a day 1 tablet 24h 28 Active Propranolol HCl 40 mg Orally Twice a day 1 tablet 12h Oct, 30 day(s) Active RESULTS No Results PROCEDURES No Known [...]
--- OUTSIDE RECORDS SUMMARY | 2018-05-05 18:44 | XMS REPORT ---
Author Author BARRINGTON NI [facility] Address [address] [place] [address] Care Team Providers Care Php Wordpress Developer Name Role Phone BARRINGTON NI Unavailable PROBLEMS Type Condition ICD9-CM Code [id number] Code Onset Dates Condition Status SNOMED Code Problem Gastroesophageal reflux disease without esophagitis K21.9 Active 690998206 Problem Essential hypertension I10 Active 47353176 Problem Arthritis M19.90 Active 7614019 Problem IBS (irritable bowel syndrome) K58.9 Active 34913954 Problem Hypomagnesemia E83.42 Active 827296660 Problem Idiopathic peripheral neuropathy G60.9 Active 21006956 Problem Primary insomnia F51.01 Active 9568839 Problem Fibromyalgia M79.7 Active 58717952 Problem Long-term use of high-risk medication Z79.899 Active 626208695 Problem Bipolar depression F31.30 Active 57757527 ALLERGIES Substance Reaction Event Type Date Status Tramadol HCl itching Drug Allergy Nov, Active Penicillin V Potassium shock Drug Allergy Nov, Active Naproxen Unknown Drug Allergy Nov, Active Ambien dangerous activites while sleeping Drug Allergy Nov, Active Morphine hives, vomiting Drug Allergy Nov, Active ENCOUNTERS Encounter Location Date Diagnosis [place] [id number] [address] Feb, Fibromyalgia M79.7 [facility] [id number], [place] [address] 18 Jan, 2018 Fibromyalgia M79.7 [facility] [address], [place] [address] 13 Jan, 2018 [facility] [id number] [address] 13 Jan, 2018 Left hip pain M25.552 ; Gastroesophageal reflux disease without esophagitis K21.9 ; Fibromyalgia M79.7 ; Essential hypertension I10 ; Hypomagnesemia E83.42 and BMI 45.0-49.9, adult Z68.42 [place] [id number] [place] [address] 29[address] 12 Jan, 2018 [place] [address] [address] December, Fibromyalgia M79.7 [facility] [address] [place] [address] December, Skin lesions L98.9 and BMI 45.0-49.9, adult Z68.42 [facility] [address] [address] Nov, [facility] [address] [address] Nov, Impetigo L01.00 ; Allergic contact dermatitis due to cosmetics L23.2 and BMI 45.0-49.9, adult Z68.42 [place] [id number] [place] [address] 14 Oct, 2017 [place] [id number] [place] [address]- 1403 Oct, Essential hypertension I10 ; Gastroesophageal reflux disease without esophagitis K21.9 ; Arthritis M19.90 ; Fibromyalgia M79.7 ; Primary insomnia F51.01 ; Long-term use of high-risk medication Z79.899 and BMI 45.0-49.9, adult Z68.42 [place] [id number] [place] [address] 1514 Oct, [address] [address] Sep, Fibromyalgia M79.7 [facility] [place] [id number] [place] [address] Aug, Dysuria R30.0 ; Facial injury, initial encounter S09.93XA and BMI 45.0-49.9, adult Z68.42 [facility] [address] [address] Aug, [facility] [address] [address] Aug, Fibromyalgia M79.7 [place] [address] [address] 11 Jul, 2017 Fibromyalgia M79.7 [facility] [address] [address] 08 Jul, 2017 Dysuria R30.0 ; Bladder spasm N32.89 and BMI 45.0-49.9, adult Z68.42 [facility] [address] [address] 05 Jul, 2017 Acute cystitis without hematuria N30.00 and BMI 40.0-44.9, adult Z68.41 [place] [id number] [place] [address]- 2666 28 Jun, 2017 Fibromyalgia M79.7 ; Long-term use of high-risk medication Z79.899 ; Primary insomnia F51.01 ; Arthritis M19.90 ; Idiopathic peripheral neuropathy G60.9 ; BMI 40.0-44.9, adult Z68.41 ; Acquired hypothyroidism E03.9 and Gastroesophageal reflux disease without esophagitis K21.9 [place] [id number] [place] [address]- 8867 May, [place] [id number] [place] [address]10- 4376 May, Pain in joint involving left ankle and foot M25.572 [facility] [address] [id number] Oct, Dental caries K02.9 [facility] [id number] [place] [address] [id number] 06 Mar, 2017 Dental examination Z01.20 [place] [id number] [place] [address] 03311[address] 8493 Aug, Idiopathic peripheral neuropathy G60.9 and Fibromyalgia M79.7 [place] [address] [address] Aug, Fibromyalgia M79.7 ; Essential hypertension I10 ; Long-term use of high-risk medication Z79.899 ; Primary insomnia F51.01 ; Arthritis M19.90 ; Viral syndrome B34.9 and Idiopathic peripheral neuropathy G60.9 [place] [address] [address]67 Jun, [facility] [place] [address] [address] Jun, Other constipation K59.09 [facility] [address] [address] Jun, Viral syndrome B34.9 [place] [address] [address] Jun, Fibromyalgia M79.7 ; Essential hypertension I10 ; Long-term use of high-risk medication Z79.899 ; Abnormal thyroid blood test R94.6 and Ganglion cyst of wrist, right M67.431 [place] [id number] [place] [address] 8168 Feb, [place] [id number] [place] [address]- 0949 Sep, [place] [address] [address] 4769 Aug, Bipolar depression F31.30 [place] [address] [address]- 7064 Aug, Essential hypertension I10 ; Arthritis M19.90 ; Left hip pain M25.552 ; Sacroiliac joint pain M53.3 ; Bipolar depression F31.30 and Primary insomnia F51.01 [place] [id number] [place] [address]35- 4528 Jun, Arthritis M19.90 ; Acquired hypothyroidism E03.9 ; Gastroesophageal reflux disease without esophagitis K21.9 ; IBS (irritable bowel syndrome) K58.9 ; Essential hypertension I10 and Fibromyalgia M79.7 [place] [id number] [place] [address] 25442- 0981 May, Fibromyalgia M79.[address] [address] Feb, HTN (hypertension) 401.9 ; Arthralgia 719.40 ; Obesity 278.00 and Fibromyalgia 729.1 [place] [id number] [place] [address] 68263- 6[address] Jan, [address] [address] 80[address] Jan, Abnormal thyroid blood test 794.[address] [address]- 4[address] Jan, Anemia 285.9 ; HTN (hypertension) 401.9 ; Arthralgia 719.40 ; Obesity 278.00 and Fatigue 780.79 [place] [id number] [place] [address] [id number] December, [place] [id number] [place] [address] 6[address]14- 22[address] December, [place] [id number] [place] [address] [id number] Nov, Other chronic pain 338.29 ; Essential hypertension, benign 401.1 ; Irritable bowel syndrome 564.1 and Anxiety state, unspecified 300.00 [place] [id number] [place] [address] 68642- 9686 Nov, [place] [id number] [place] [address] 59632- 4639 Nov, [address] [place] [address]- 67[address] Oct, [facility] [place] [facility] [address] [facility] [id number] [address]- 8569 Oct, [facility] [place] [facility] [address] [facility] [id number], [place] [address]- 0468 Oct, [facility] [place] [facility] [address] [facility] [id number], [place] [address] 5698 Oct, [facility] [place] [facility] [address] [facility] [id number], [place] [address] Oct, [facility] [address] [facility] [id number] BAR [place] [id number] Oct, [facility] [place] [facility] [id number], [place] [address] 0996 Oct, [facility] [place] [facility] [address], [place] [address]- 6126 Oct, [facility] [place] [facility] [address], [place] [address]- 9511 Oct, [facility] [place] [facility] [address] 26[address] Sep, [facility] [address] [id number] [place] [id number] Sep, [facility] [id number] BAR [place] [id number] Sep, [facility] [place] [facility] [address] [facility] [id number], [place] [address] 2541 Sep, [facility] [address] [facility] [id number] BAR [place] [id number] Sep, [facility] [address] [facility] [id number] BAR [place] [id number] Sep, [facility] [place] [facility] [id number], [place] [address]- 4099 Sep, [facility] [place] [facility] [address], [place] [address]- 1756 Sep, [facility] [address] [facility] [id number] BAR [place] [id number] Sep, [facility] [place] [facility] [address] [facility] [id number], [place] [address]- 2766 Sep, [facility] [place] [facility] [address] [facility] [id number], [place] [address]- 3536 Sep, [facility] [place] [facility] [address] [facility] [id number], [place] [address]- 3811 Sep, [facility] [place] [facility] [address] [facility] [id number], [place] [address]- 3945 Sep, [facility] [place] [facility] [address] [facility] [id number], [place] [address]- 8198 Sep, [facility] [address] [id number] BAR [place] [id number] Aug, [facility] [place] [facility] [address] [facility] [id number][place] [address]- 6655 Aug, [facility] [place] [facility] [address] [facility] [id number], [place] [address]- 5454 Aug, [facility] [place] [facility] [address] [facility] [id number], [place] [address]- 8849 Aug, [facility] [place] [facility] [address] [facility] [id number], [place] [address]- 5149 Aug, [facility] [place] [facility] [address] [facility] [id number], [place] [address]- 8357 Aug, [facility] [place] [facility] [address] [facility] [id number], [place] [address]- 8872 Aug, [facility] [address] [facility] [id number] BAR [place] [address] Aug, [facility] [place] [facility] [address] [facility] [id number], [place] [address]- 0861 Aug, [facility] [place] [facility] [address] [facility] [id number] [place] [address]- 9348 Aug, [facility] [place] [facility] [address] [id number] [place] [address]- 4942 Aug, [facility] [place] [facility] [address] [id number] [place] [address]- 1511 Aug, [facility] [place] [facility] [address] [id number] [place] [address]- 6417 Aug, [facility] [place] [facility] [address] [id number] [place] [address]- 0656 Aug, [facility] [place] [facility] [address] [id number] [place] [address]- 5632 Aug, [facility] [place] [facility] [address] [id number] [place] [address]- 1862 Aug, [facility] [place] [facility] [address] [id number] [place] [address]- 0090 Aug, [facility] [place] [facility] [address] [id number] [place] [address]- 9985 Aug, [facility] [place] [facility] [address] [id number] [place] [address]- 4599 Aug, [facility] [place] [facility] [address] [id number] [place] [address]- 5438 Aug, [facility] [place] [facility] [address] [id number] [place] [address]- 0161 Aug, [facility] [place] [facility] [address] [id number] [place] [address]- 6487 Aug, [facility] [place] [facility] [address] [id number] [place] [address]- 7759 Aug, [facility] [place] [facility] [address] [id number] [place] [address]- 7276 Aug, [facility] [place] [facility] [address] [id number] [place] [address]- 1711 Aug, [facility] [place] [facility] [address] [id number] [place] [address]- 6084 Aug, [facility] [place] [facility] [address] [id number] [place] [address]- 5879 Aug, [facility] [place] [facility] [address] [id number] [place] [address]- 8123 Aug, [facility] [place] [facility] [address] [id number] [place] [address]- 8803 Aug, [facility] [place] [facility] [address] [id number] [place] [address]- 1898 Aug, [facility] [place] [facility] [address] [id number] [place] [address]- 5777 Aug, [facility] [place] [facility] [address] [id number] [place] [address]- 5768 Aug, [facility] [place] [facility] [address] [id number] [place] [address]- 1841 Jul, [facility] [place] [facility] [address] [id number] [place] [address]- 8228 Jul, [facility] [place] [facility] [address] [id number] [place] [address]- 6100 Jul, [facility] [place] [facility] [address] [id number] [place] [address]- 4436 Jul, [facility] [place] [facility] [address] [id number] [place] [address]- 2563 Jul, [facility] [place] [facility] [address] [id number] [place] [address]- 3971 Jul, [facility] [place] [facility] [address] [id number] [place] [address]- 3004 Jul, [facility] [place] [facility] [address] [id number] [place] 5170 Jul, [facility] [place] [facility] [address] [id number] [place] [address]- 8742 Jul, [facility] [place] [facility] [address] [id number] [place]- 1915 Jul, [facility] [place] [facility] [address] [id number] [place] [address]- 5350 Jul, [facility] [place] [facility] [address] [facility] [id number] [place] 9501 Jul, [facility] [place] [facility] [address] [id number] [place] [address]- 3584 Jun, [facility] [place] [facility] [address] [id number] [place] [address]- 9378 Jun, [facility] [place] [facility] [address] [id number] [place] [address]- 1109 Jun, [facility] [place] [facility] [address] [id number] [place] [address]- 4352 Jun, [facility] [place] [facility] [address] [id number], [place] [address]- 1828 Jun, [facility] [place] [facility] [address] [id number] [place] [address]- 2166 Jun, [facility] [place] [facility] [address] [id number] [place] [address]- 0429 Jun, [facility] [place] [facility] [address] [id number], [place] [address]- 0609 Jun, [facility] [place] [facility] [address] [id number], [place] [address]- 1854 Jun, [facility] [place] [facility] [address] [id number], [place] [address]- 6254 Jun, [facility] [place] [facility] [address] [id number], [place] [address]- 3943 May, [facility] [place] [facility] [address] [id number], [place] [address]- 4645 May, [facility] [place] [facility] [address] [id number] [place] [address]- 4531 May, [facility] [address] [id number] [place] [address]- 2547 May, [facility] [place] [facility] [address] [id number] [place] [address]- 3969 May, [facility] [place] [facility] [address] [id number] [place] [address]- 8059 May, [facility] [place] [facility] [address] [id number] [place] [address]- 8411 May, [facility] [place] [facility] [address] [id number] [place] [address]- 2616 May, [facility] [place] [facility] [address] [id number] [place] [address]- 9199 Apr, [facility] [place] [facility] [address] [id number] [place] [address]- 8617 Apr, [facility] [place] [facility] [address] [id number] [place] [address]- 4460 Mar, [facility] [place] [facility] [address] [id number] [place] [address]- 5740 Mar, [facility] [place] [facility] [address] [id number] [place] [address]- 3883 Feb, [facility] [place] [facility] [address] [id number] [place] [address]- 8808 Feb, [facility] [place] [facility] [address] [id number] [place] [address]- 3105 December, [facility] [place] [facility] [address] [id number] [place] [address]- 5849 December, [facility] [place] [facility] [address] [id number] [place] [address]- 4774 December, [facility] [place] [facility] [address] [id number] [place] [address]- 1391 December, [facility] [place] [facility] [address] [id number] [place] [address]- 5687 December, [facility] [place] [facility] [address] [id number] [place] [address]- 9265 December, [facility] [place] [facility] [address] [id number] [place] [address]- 4719 December, [facility] [place] [facility] [address] [id number] [place] [address]- 1092 December, [facility] [place] [facility] [address] [id number] [place] [address]- 8500 Nov, [facility] [place] [facility] [address] [id number] [place] [address]- 1467 Nov, [facility] [place] [facility] [address] [id number] [place] [address]- 3310 Nov, [facility] [place] [facility] [address] [id number] [place] [address]- 9176 Nov, [facility] [place] [facility] [address] [id number] [place] [address]- 8867 Nov, [facility] [place] [facility] [address] [id number] [place] [address]- 8203 Nov, [facility] [place] [facility] [address] [id number] [place] [address]- 9953 Nov, [facility] [place] [facility] [address] [id number] [place] [address]- 7714 Nov, [facility] [place] [facility] [address] [id number] [place] [address]- 8139 Nov, [facility] [place] [facility] [address] [id number] [place] [address]- 8458 Nov, [facility] [place] [facility] [address] [id number] [place] [address]- 3688 Oct, [facility] [place] [facility] [address] [id number], [place] [address]- 6293 Oct, [facility] [address] [id number] [place] [address]- 5841 Sep, [facility] [place] [facility] [address] [id number], [place] [address]- 1027 Sep, [facility] [place] [facility] [address] [facility] [id number] [place] [address]- 3628 Aug, [facility] [place] [facility] [address] [id number] [place] [address]- 3126 Aug, [facility] [address] [facility] [id number] [place] [address]- 7094 Aug, [facility] [place] [facility] [address] [facility] [id number] [place] 9915 Aug, [facility] [address] [facility] [id number], [place] [address]- 8372 Jul, [facility] [place] [facility] [address] [id number], [place] [address]- 1469 Jul, [facility] [place] [facility] [address] [facility] [id number] [place] [address]- 0567 Jul, [facility] [place] [facility] [address] [facility] [id number], [place] [address]- 1193 Jul, [facility] [place] [facility] [address] [facility] [id number], [place] [address]- 2260 Jun, [facility] [place] [facility] [address] [id number], [place] [address]- 0973 Jun, [facility] [place] [facility] [address] [id number], [place] [address]- 7826 May, [facility] [place] [facility] [address] [facility] [id number], [place] [address]- 0188 May, [facility] [place] [facility] [address] [facility] [id number], [place] [address]- 7683 May, [facility] [place] [facility] [address] [id number] [place] [address] May, [facility] [place] [facility] [address] [id number] [place] [address] Apr, [facility] [place] [facility] [address] [id number] [place] [address] Apr, [facility] [place] [facility] [address] [id number] [place] [address] Apr, [facility] [place] [facility] [address] [id number] [place] [address] Apr, [facility] [place] [facility] [address] [id number] [place] [address] Apr, [facility] [place] [facility] [address] [id number] [place] [address] Mar, [facility] [place] [facility] [address] [id number] [place] [address] Mar, [facility] [place] [facility] [address] [id number] [place] [address] Mar, [facility] [place] [facility] [address] [id number] [place] [address] Mar, [facility] [place] [facility] [address] [id number] [place] [id number] Feb, [facility] [place] [facility] [id number] [id number] Feb, [facility] [place] [facility] [address] [id number] [place] [address] Feb, [facility] [place] [facility] [address] [id number] [place] [address] Feb, [facility] [place] [facility] [address] [id number] [place] [address] Jan, [facility] [place] [facility] [address] [id number] [place] [address] Jan, [facility] [address] [id number] [address] Jan, [facility] [id number], [place] [address] December, [facility] [id number], [place] [address] December, [facility] [id number], [place] [address] Nov, [facility] [id number], [place] [address] Nov, [facility] [id number], [place] [address] Nov, [facility] [id number], [place] [address] Oct, [facility] [id number], [place] [address] Sep, [facility] [id number], [place] [address] Sep, [facility] [id number], [place] [address] Sep, [facility] [id number], [place] [address] Aug, [facility] [address] [id number], [place] [address] May, [facility] [address] [id number], [place] [address] May, [facility] [id number], [place] [address] December, IMMUNIZATIONS Vaccine Route Administration Date Status SOLUMEDROL (UP TO 125 MG) IM Intramuscular December 02, 2017 Administered SOCIAL HISTORY Never Assessed REASON FOR VISIT Allergic reaction, possible- states that she has a chemical burn from otc acne med JStrasserRN PLAN OF CARE Activity Details Follow Up prn Reason: VITAL SIGNS Height 62 in 2017-12-02 Weight 264.4 lbs 2017-12-02 Temperature 98.6 degrees Fahrenheit 2017-12-02 Heart Rate 104 bpm 2017-12-02 Respiratory Rate 22 2017-12-02 BMI 48.35 kg/m2 2017-12-02 Blood pressure systolic 152 mmHg 2017-12-02 Blood pressure diastolic 100 mmHg 2017-12-02 MEDICATIONS Medication Instructions Dosage Frequency Start Date End Date Duration Status Ibuprofen 800 MG Orally Three times a day prn 1 tablet 30 Active Omeprazole 20 MG Orally Once a day 1 capsule 24h 28 Jun, 2017 30 day(s ) Active Amitriptyline HCl 75 MG Orally Once a day 1 tablet 24h 28 Active Lyrica 100 mg Orally 3 times a day 1 capsule 8h Oct, 28 days Active Clindamycin HCl 300 MG Orally every 12 hrs 1 capsule 12h Nov, Nov, 10 days Active Propranolol HCl ER 60 mg Orally Once a day 1 capsule 24h Oct, 30 day(s) Active Propranolol HCl 40 mg Orally Twice a day 1 tablet 12h Oct, 30 day(s) Active Cymbalta 30 MG Orally Once a day 3 capsule 24h 30 days Active RESULTS No Results PROCEDURES Procedure Date Ordered Result Body Site SOLUMEDROL (UP TO 125 MG) December 02, 2017 THER/PROPH/DIAG INJ, SC/IM December 02, 2017 INSTRUCTIONS MEDICATIONS ADMINISTERED No Known Medications MEDICAL [...]
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
== END 2018-05-05 19:26 | disposition left against medical advice (07) ==
LOC: EDUNIT# 18:34 → ER 18:36
DX: H66.90 Otitis media, unspecified, unspecified ear (principal); R09.3 Abnormal sputum; R05 Cough; J11.1 Influenza due to unidentified influenza virus with other respiratory manifestations
CPT/HCPCS: 99281

== ENCOUNTER 2018-05-09 14:41 | Emergency (ER) | payer MEDICAID ==
[~2018-05-09] VITALS: Ht 154.9 cm; Wt 122.5 kg
--- OUTSIDE RECORDS SUMMARY | 2018-05-09 15:02 | XMS REPORT | Continuity of Care Document ---
Author Author [facility] Address Unknown Phone Unavailable Allergies Active Description Code Type Severity Reaction Onset Reported/Identified Relationship to Patient Clinical Status Yes Penicillins [id number] Drug Allergy Mild N/A 12/07/2008 Yes Cymbalta Drug Allergy N/A N/A 01/03/2009 Yes Penicillins Drug Allergy N/A N/A 01/03/2009 Yes Cymbalta Drug Allergy 01/03/2009 Yes Penicillins Drug Allergy 01/03/2009 Yes morphine [id number] Drug Allergy Mild VOMITING 09/28/2012 Yes codeine [id number] Drug Allergy Unknown N/A 01/21/2014 Yes morphine Drug Allergy N/A N/A 05/26/2014 Yes tramadol [id number] Drug Allergy Mild itching 07/26/2014 Medications There [...] 788.1 pain during urination (dysuria) 01/03/2009 HANNAH [employer]MER, BELKIS R 788.1 pain during urination (dysuria) 01/03/2009 PITA FINE, MARISABEL Carlisle 788.1 pain during urination (dysuria) 01/03/2009 HANNAH [employer] FORMER, BELKIS R 788.1 pain during urination (dysuria) 01/03/2009 HANNAH [employer] FORMER, BELKIS R 788.1 pain during urination (dysuria) 01/03/2009 HANNAH [employer] FORMER, BELKIS R 788.1 pain during urination (dysuria) 01/03/2009 HANNAH [employer] FORMER, BELKIS R 788.1 pain during urination (dysuria) 01/03/2009 HANNAH [employer] FORMER, BELKIS R 788.1 pain during urination (dysuria) [...] DDS 280.9 ANEMIA IRON DEFICIENCY 01/08/2009 HANNAH [employer] FORMER, BELKIS R 280.9 ANEMIA IRON DEFICIENCY 01/08/2009 HANNAH GOLDSTEINN, BELKIS R 280.9 ANEMIA IRON DEFICIENCY 01/08/2009 HANNAH GOLDSTEINN, BELKIS R 280.9 ANEMIA IRON DEFICIENCY 01/08/2009 CLEVE MACARIO DDS 280.9 ANEMIA IRON DEFICIENCY 01/08/2009 CHERISE LYNN LCPC B 280.9 ANEMIA IRON DEFICIENCY 01/08/2009 HANNAH ROBERSON, BELKIS R 280.9 ANEMIA IRON DEFICIENCY 01/08/2009 PITA FINE, MARISABEL Carlisle 280.9 ANEMIA IRON DEFICIENCY 01/08/2009 HANNAH [employer]MER, BELKIS R 280.9 ANEMIA IRON DEFICIENCY 01/08/2009 HANNAH [employer] FORMER, BELKIS R 280.9 ANEMIA IRON DEFICIENCY 01/08/2009 HANNAH AUTOM[employer]IC [employer] FORMER, BELKIS R 280.9 ANEMIA IRON DEFICIENCY 01/08/2009 HANNAH [employer]OM[employer]IC [employer] FORMER, BELKIS R 280.9 ANEMIA IRON DEFICIENCY 01/08/2009 HANNAH [employer] FORMER, BELKIS R 280.9 ANEMIA IRON DEFICIENCY 01/08/2009 [...] DDS, DULCE D 787.91 DIARRHEA 06/15/2010 HANNAH [employer]MER, BELKIS R 558.9 OTHER AND UNSPECIFIED NONINFECTIOUS GASTROENTERITIS AND COLITIS 06/15/2010 HANNAH [employer] FORMER, BELKIS R 784.0 HEADACHE 06/15/2010 HANNAH [employer] FORMER, BELKIS R 787.91 DIARRHEA 06/15/2010 HANNAH [employer] FORMER, BELKIS R 558.9 OTHER AND UNSPECIFIED NONINFECTIOUS GASTROENTERITIS AND COLITIS 06/15/2010 HANNAH [employer] FORMER, BELKIS R 784.0 HEADACHE 06/15/2010 HANNAH [employer] FORMER, BELKIS R 787.91 DIARRHEA 06/15/2010 HANNAH [employer] FORMER, BELKIS R 558.9 OTHER AND UNSPECIFIED NONINFECTIOUS GASTROENTERITIS AND COLITIS 06/15/2010 HANNAH [employer] FORMER, BELKIS R 784.0 HEADACHE 06/15/2010 HANNAH [employer] FORMER, BELKIS R 787.91 DIARRHEA 06/15/2010 CLEVE MACARIO DDS 558.9 OTHER AND UNSPECIFIED NONINFECTIOUS GASTROENTERITIS AND COLITIS 06/15/2010 MACARIO DDS, CLEVE 784.0 HEADACHE 06/15/2010 MACARIO DDS, CLEVE 787.91 DIARRHEA 06/15/2010 SHANE UNLEAVENED DOUGH MIXER, CHERISE B 558.9 OTHER AND UNSPECIFIED NONINFECTIOUS GASTROENTERITIS AND COLITIS 06/15/2010 SHANE UNLEAVENED DOUGH MIXER, CHERISE B 784.0 HEADACHE 06/15/2010 SHANE UNLEAVENED DOUGH MIXER, CHERISE B 787.91 DIARRHEA 06/15/2010 HANNAH [employer] FORMER, BELKIS R 558.9 OTHER AND UNSPECIFIED NONINFECTIOUS GASTROENTERITIS AND COLITIS 06/15/2010 HANNAH [employer] FORMER, BELKIS R 784.0 HEADACHE 06/15/2010 HANNAH [employer] FORMER, BELKSI R 787.91 DIARRHEA 06/15/2010 PITA IFNE, MARISABEL Carlisle 558.9 OTHER AND UNSPECIFIED NONINFECTIOUS GASTROENTERITIS AND COLITIS 06/15/2010 PITA FINE, MARISABEL Carlisle 784.0 HEADACHE 06/15/2010 PITA FINE, MARISABEL Carlisle 787.91 DIARRHEA 06/15/2010 HANNAH [employer] FORMER, BELKIS R 558.9 OTHER AND UNSPECIFIED NONINFECTIOUS GASTROENTERITIS AND COLITIS 06/15/2010 HANNAH AUTOM[employer] FORMER, BELKIS R 784.0 HEADACHE 06/15/2010 HANNAH [employer]OM[employer]NER [employer] FORMER, BELKIS R 787.91 DIARRHEA 06/15/2010 HANNAH AUTOM[employer]IC GL[employer]NER [employer] FORMER, BELKIS R 558.9 OTHER AND UNSPECIFIED NONINFECTIOUS GASTROENTERITIS AND COLITIS 06/15/2010 HANNAH [employer] FORMER, BELKIS R 784.0 HEADACHE 06/15/2010 HANNAH [employer]OM[employer]NER [employer] FORMER, BELKIS R 787.91 DIARRHEA 06/15/2010 HANNAH AUTOM[employer]IC GL[employer]NER AND FORMER, BELKIS R 558.9 OTHER AND UNSPECIFIED NONINFECTIOUS GASTROENTERITIS AND COLITIS 06/15/2010 HANNAH AUTOM[employer] FORMER, BELKIS R 784.0 HEADACHE 06/15/2010 HANNAH [employer] FORMER, BELKIS R 787.91 DIARRHEA 06/15/2010 HANNAH [employer]OM[employer] FORMER, BELKIS R 558.9 OTHER AND UNSPECIFIED NONINFECTIOUS GASTROENTERITIS AND COLITIS 06/15/2010 HANNAH AUTOM[employer] FORMER, BELKIS R 784.0 HEADACHE 06/15/2010 HANNAH [employer] FORMER, BELKIS R 787.91 DIARRHEA 06/15/2010 HANNAH AUTOM[employer]IC [employer]NER AND FORMER, BELKIS R 558.9 OTHER AND UNSPECIFIED NONINFECTIOUS GASTROENTERITIS AND COLITIS 06/15/2010 HANNAH [employer] FORMER, BELKIS R 784.0 HEADACHE 06/15/2010 HANNAH [employer] FORMER, BELKIS R 787.91 DIARRHEA 06/15/2010 DAVID SAND MIXER, BARRINGTON M 558.9 OTHER AND UNSPECIFIED NONINFECTIOUS GASTROENTERITIS AND COLITIS 06/15/2010 DAVID SAND MIXER, BARRINGTON M 784.0 HEADACHE 06/15/2010 DAVID SAND MIXER, BARRINGTON M 787.91 DIARRHEA 06/15/2010 MACARIO DDS, CLEVE 558.9 OTHER AND UNSPECIFIED NONINFECTIOUS GASTROENTERITIS AND COLITIS 06/15/2010 MACARIO DDS, CLEVE 784.0 HEADACHE 06/15/2010 MACARIO DDS, CLEVE 787.91 DIARRHEA 06/15/2010 HELLTATO AUTOMATIC GLOVE TURNER AND FORMER, JIHAN E 558.9 OTHER AND UNSPECIFIED NONINFECTIOUS GASTROENTERITIS AND COLITIS 06/15/2010 HELLWIG AUTOMATIC GLOVE TURNER AND FORMER, JIHAN E 784.0 HEADACHE 06/15/2010 HELLWIG [employer]OM[employer]IC [employer]NER [employer] FORMER, JIHAN E 787.91 DIARRHEA 06/19/2010 462 PHARYNGITIS ACUTE 06/19/2010 LEIGHTON JONES, [place] 462 PHARYNGITIS ACUTE 06/19/2010 462 PHARYNGITIS ACUTE 06/19/2010 462 PHARYNGITIS ACUTE 06/19/2010 462 PHARYNGITIS ACUTE 06/19/2010 BLAZE BADILLO APRN 462 PHARYNGITIS ACUTE 06/19/2010 ANTOINE IBARRA, DULCE Carlisle 462 PHARYNGITIS ACUTE 06/19/2010 HANNAH [employer] FORMER, BELKIS R 462 PHARYNGITIS ACUTE 06/19/2010 HANNAH [employer] FORMER, BELKIS R 462 PHARYNGITIS ACUTE 06/19/2010 HANANH AUTOMATIC GLOVE TURNER AND FORMER, BELKIS R 462 PHARYNGITIS ACUTE 06/19/2010 MACARIO DDS, CLEVE 462 PHARYNGITIS ACUTE 06/19/2010 CHERISE LYNN LCPC 462 PHARYNGITIS ACUTE 06/19/2010 HANNAH GOLDSTEINN, BELKIS R 462 PHARYNGITIS ACUTE 06/19/2010 PITA FINE, MARISABEL Carlisle 462 PHARYNGITIS ACUTE 06/19/2010 HANNAH [employer] FORMER, BELKIS R 462 PHARYNGITIS ACUTE 06/19/2010 HANNAH [employer]IC [employer] FORMER, BELKIS R 462 PHARYNGITIS ACUTE 06/19/2010 HANNAH ROBERSON, BELKIS R 462 PHARYNGITIS ACUTE 06/19/2010 HANNAH GOLDSTEINN, BELKIS R 462 PHARYNGITIS ACUTE 06/19/2010 HANNAH ROBERSON, BELKIS R 462 PHARYNGITIS ACUTE 06/19/2010 DAVID RAMIREZ BARR[place] Mariah 462 PHARYNGITIS ACUTE 06/19/2010 CLEVE MACARIO DDS 462 PHARYNGITIS ACUTE 06/19/2010 JIHAN ALADNA APRN 462 PHARYNGITIS ACUTE 10/19/2010 Ot 521.00 [...] a rash [as Sx] 10/05/2012 HANNAH ROBERSON BELKSI R 338.29 CHRONIC PAIN 10/05/2012 GERMÁN YOUNG [...] skin: a rash [as Sx] 10/05/2012 HANNAH [employer] FORMER, BELKIS R 338.29 CHRONIC PAIN 10/05/2012 HANNAH [...] DULCE Carlisle 461.9 SINUSITIS ACUTE 01/05/2013 HANNAH [employer] FORMER, BELKIS R 461.9 SINUSITIS ACUTE 01/05/2013 HANNAH [employer] FORMER, BELKIS R 461.9 SINUSITIS ACUTE 01/05/2013 HANNAH [employer]OM[employer] FORMER, BELKIS R 461.9 SINUSITIS ACUTE 01/05/2013 RENALDO RDZS, CLEVE 461.9 SINUSITIS ACUTE 01/05/2013 SHANE NGUYEN, CHERISE Doyle 461.9 SINUSITIS ACUTE 01/05/2013 HANNAH [employer]OM[employer] FORMER, BELKIS R 461.9 SINUSITIS ACUTE 01/05/2013 PITA FINE, MARISABEL D 461.9 SINUSITIS ACUTE 01/05/2013 HANNAH [employer] FORMER, BELKIS R 461.9 SINUSITIS ACUTE 01/05/2013 HANNAH AUTOM[employer]IC [employer] AND FORMER, BELKIS R 461.9 SINUSITIS ACUTE 01/05/2013 HANNAH AUTOM[employer]IC [employer] AND FORMER, BELKIS R 461.9 SINUSITIS ACUTE 01/05/2013 HANNAH AUTOM[employer]IC [employer] FORMER, BELKIS R 461.9 SINUSITIS ACUTE 01/05/2013 HANNAH [employer]OM[employer] FORMER, BELKIS R 461.9 SINUSITIS ACUTE 01/05/2013 DAVID [...] MARISABEL Carlisle 304.00 OPIOID DEPENDENCE 04/05/2013 HANNAH [employer] FORMER, BELKIS R 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 SEVERE W/O PSYCHOTIC BEHAVIOR 04/05/2013 HANNAH [employer] FORMER, BELKIS R 304.00 OPIOID DEPENDENCE 04/05/2013 HANNAH [employer] FORMER, BELKIS R 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 SEVERE W/O PSYCHOTIC BEHAVIOR 04/05/2013 HANNAH [employer] FORMER, BELKIS R 304.00 OPIOID DEPENDENCE 04/05/2013 HANNAH [employer] FORMER, BELKIS R 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 SEVERE W/O PSYCHOTIC BEHAVIOR 04/05/2013 HANNAH [employer] FORMER, BELKIS R 304.00 OPIOID DEPENDENCE 04/05/2013 HANNAH [employer] FORMER, BELKIS R 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 SEVERE W/O PSYCHOTIC BEHAVIOR 04/05/2013 HANNAH [employer] FORMER, BELKIS R 304.00 OPIOID DEPENDENCE 04/05/2013 HANNAH [employer] FORMER, BELKIS R 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 SEVERE [...] ROBERSON, BELKIS R 300.00 anxiety 04/07/2013 HANNAH [employer] FORMER, BELKIS R 401.1 ESSENTIAL HYPERTENSION BENIGN 04/07/2013 HANNAH [employer] FORMER, BELKIS R 530.81 ESOPHAGEAL REFLUX 04/07/2013 HANNAH [employer] FORMER, BELKIS R 300.00 anxiety 04/07/2013 HANNAH [employer] FORMER, BELKIS R 401.1 ESSENTIAL HYPERTENSION BENIGN 04/07/2013 HANNAH [employer] FORMER, BELKIS R 530.81 ESOPHAGEAL REFLUX 04/07/2013 HANNAH [employer]OM[employer] FORMER, BELKIS R 300.00 anxiety 04/07/2013 HANNAH [employer] FORMER, BELKIS R 401.1 ESSENTIAL HYPERTENSION BENIGN 04/07/2013 HANNAH [employer] FORMER, BELKIS R 530.81 ESOPHAGEAL REFLUX 04/07/2013 MACARIO DDS, CLEVE 300.00 anxiety 04/07/2013 MACARIO DDS, CLEVE 401.1 ESSENTIAL HYPERTENSION BENIGN 04/07/2013 MACARIO DDS, CLEVE 530.81 ESOPHAGEAL REFLUX 04/07/2013 SHANE UNLEAVENED DOUGH MIXER, CHERISE B 300.00 anxiety 04/07/2013 SHANE UNLEAVENED DOUGH MIXER, CHERISE B 401.1 ESSENTIAL HYPERTENSION BENIGN 04/07/2013 SHANE UNLEAVENED DOUGH MIXER, CHERISE B 530.81 ESOPHAGEAL REFLUX 04/07/2013 HANNAH [employer] FORMER, BELKIS R 300.00 anxiety 04/07/2013 HANNAH [employer]OM[employer] FORMER, BELKIS R 401.1 ESSENTIAL HYPERTENSION BENIGN 04/07/2013 HANNAH [employer] FORMER, BELKIS R 530.81 ESOPHAGEAL REFLUX 04/07/2013 PITA PHD, MARISABEL Carlisle 300.00 anxiety 04/07/2013 PITA PHD, MARISABEL Carlisle 401.1 ESSENTIAL HYPERTENSION BENIGN 04/07/2013 PITA PHD, MARISABEL Carlisle 530.81 ESOPHAGEAL REFLUX 04/07/2013 HANNAH [employer] FORMER, BELKIS R 300.00 anxiety 04/07/2013 HANNAH AUTOM[employer]IC [employer] FORMER, BELKIS R 401.1 ESSENTIAL HYPERTENSION BENIGN 04/07/2013 HANNAH AUTOMATIC [employer]OVE [employer] AND FORMER, BELKIS R 530.81 ESOPHAGEAL REFLUX 04/07/2013 HANNAH AUTOMATIC [employer] FORMER, BELKIS R 300.00 anxiety 04/07/2013 HANNAH AUTOM[employer] FORMER, BELKIS R 401.1 ESSENTIAL HYPERTENSION BENIGN 04/07/2013 HANNAH AUTOMATIC [employer]OVE [employer] AND FORMER, BELKIS R 530.81 ESOPHAGEAL REFLUX 04/07/2013 HANNAH AUTOM[employer]IC [employer]OVE [employer] FORMER, BELKIS R 300.00 anxiety 04/07/2013 HANNAH AUTOMATIC [employer] AND FORMER, BELKIS R 401.1 ESSENTIAL HYPERTENSION BENIGN 04/07/2013 HANNAH AUTOMATIC [employer] AND FORMER, BELKIS R 530.81 ESOPHAGEAL REFLUX 04/07/2013 HANNAH AUTOMATIC GLOVE [employer] AND FORMER, BELKIS R 300.00 anxiety 04/07/2013 HANNAH AUTOMATIC [employer]OVE [employer]NER AND FORMER, BELKIS R 401.1 ESSENTIAL HYPERTENSION BENIGN 04/07/2013 HANNAH AUTOMATIC [employer] AND FORMER, BELKIS R 530.81 ESOPHAGEAL REFLUX 04/07/2013 HANNAH AUTOMATIC GLOVE [employer]NER AND FORMER, BELKIS R 300.00 anxiety 04/07/2013 HANNAH AUTOMATIC [employer]OVE [employer] AND FORMER, BELKIS R 401.1 ESSENTIAL HYPERTENSION BENIGN 04/07/2013 HANNAH AUTOM[employer]IC [employer]OVE [employer] FORMER, BELKIS R 530.81 ESOPHAGEAL REFLUX 04/07/2013 DAVID SAND MIXER, BARRINGTON M 300.00 anxiety 04/07/2013 DAVID SAND MIXER, BARR[place] M 401.1 ESSENTIAL HYPERTENSION BENIGN 04/07/2013 DAVID SAND MIXER, BARR[place] M 530.81 ESOPHAGEAL REFLUX 04/07/2013 MACARIO DDS, CLEVE 300.00 anxiety 04/07/2013 MACARIO DDS, CLEVE 401.1 ESSENTIAL HYPERTENSION BENIGN 04/07/2013 MACARIO DDS, CLEVE 530.81 ESOPHAGEAL REFLUX 04/07/2013 MARICRUZAMANDA ROBERSON, JIHAN E 300.00 anxiety 04/07/2013 HELAMANDA RBOERSON, JIHAN E 401.1 ESSENTIAL HYPERTENSION BENIGN 04/07/2013 [...] DO Ot 847.2 SPRAIN LUMBAR REGION 07/22/2013 JEO STEWART DO Ot 924.8 MULTIPLE CONTUSIONS NEC [...] BARR[place] LOYA 724.2 LUMBAGO 04/04/2014 RENALDO IBARRA, CELVE 724.2 LUMBAGO 04/04/2014 JIHAN ALDANA APRN 724.2 [...] B 296.80 MO BIPOLAR NOS 06/19/2014 HANNAH [employer]OM[employer] FORMER, BELKIS R 296.80 MO BIPOLAR NOS 06/19/2014 PITA FINE, MARISABEL Carlisle 296.80 MO BIPOLAR NOS 06/19/2014 HANNAH [employer]OM[employer] FORMER, BELKIS R 296.80 MO BIPOLAR NOS 06/19/2014 HANNAH AUTOMATIC [employer]OVE [employer]NER [employer] FORMER, BELKIS R 296.80 MO BIPOLAR NOS 06/19/2014 HANNAH AUTOM[employer]IC [employer] FORMER, BELKIS R 296.80 MO BIPOLAR NOS 06/19/2014 HANNAH AUTOM[employer]IC [employer]OVE [employer]NER AND FORMER, BELKIS R 296.80 MO BIPOLAR NOS 06/19/2014 HANNAH AUTOM[employer]IC [employer] FORMER, BELKIS R 296.80 MO BIPOLAR NOS 06/19/2014 DAVID RAMIREZ, BARR[place] M 296.80 MO BIPOLAR NOS 06/19/2014 RENALDO IBARRA, CLEVE 296.80 MO BIPOLAR NOS 06/19/2014 JOVAN ROBERSON, JIHAN E 296.80 MO BIPOLAR NOS 06/28/2014 HANNAH [employer] FORMER, BELKIS R E885.9 ACCIDENTAL FALL FROM OTHER SLIPPING TRIPPING OR STUMBLING 06/28/2014 PITA FINE, MARISABEL Carlisle E885.9 ACCIDENTAL FALL FROM OTHER SLIPPING TRIPPING OR STUMBLING 06/28/2014 HANNAH [employer]OM[employer]IC [employer] FORMER, BELKIS R E885.9 ACCIDENTAL FALL FROM OTHER SLIPPING TRIPPING OR STUMBLING 06/28/2014 HANNAH AUTOMATIC [employer]OVE [employer] AND FORMER, BELKIS R E885.9 ACCIDENTAL FALL FROM OTHER SLIPPING TRIPPING OR STUMBLING 06/28/2014 HANNAH AUTOM[employer]IC [employer]OVE [employer]NER AND FORMER, BELKIS R E885.9 ACCIDENTAL FALL FROM OTHER SLIPPING TRIPPING OR STUMBLING 06/28/2014 HANNAH AUTOM[employer]IC [employer] FORMER, BELKIS R E885.9 ACCIDENTAL FALL FROM OTHER SLIPPING TRIPPING OR STUMBLING 06/28/2014 HANNAH AUTOM[employer]IC [employer]OVE [employer] FORMER, BELKIS R E885.9 ACCIDENTAL FALL FROM OTHER [...] Carlisle 296.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 07/11/2014 HANNAH [employer] FORMER, BELKIS R 296.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 07/11/2014 HANNAH AUTOM[employer]IC [employer] FORMER, BELKIS R 296.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 07/11/2014 HANNAH AUTOM[employer]IC [employer] FORMER, BELKIS R 296.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 07/11/2014 HANNAH AUTOM[employer]IC [employer] FORMER, BELKIS R 296.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 07/11/2014 HANNAH AUTOM[employer]IC [employer] FORMER, BELKIS R 296.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 07/11/2014 [...] IN THORACIC SPINE 07/24/2014 BELKIS YOUNG R [employer]OM[employer] GLOVE [employer] FORMER Ot 715.36 07/24/2014 HANNAH BELKIS R AUTOM[employer]IC [employer]OVE [employer]NER [employer] FORMER Ot 724.2 07/24/2014 HANNAH BELKIS R AUTOMATIC GLOVE [employer]NER AND FORMER Ot 738.4 07/25/2014 HANNAH [employer] FORMER, BELKIS R 793.7 NONSPECIFIC (ABNORMAL) FINDINGS ON RADIOLOGICAL AND OTHER EXAMINATION OF MUSCULOSKELETAL SYSTEM 07/25/2014 HANNAH AUTOM[employer] FORMER, BELKIS R 793.7 NONSPECIFIC (ABNORMAL) FINDINGS ON RADIOLOGICAL AND OTHER EXAMINATION OF MUSCULOSKELETAL SYSTEM 07/25/2014 HANNAH AUTOM[employer]IC [employer] AND FORMER, BELKIS R 793.7 NONSPECIFIC (ABNORMAL) FINDINGS ON RADIOLOGICAL AND OTHER EXAMINATION OF MUSCULOSKELETAL SYSTEM 07/25/2014 HANNAH AUTOMATIC [employer]OVE [employer] AND FORMER, BELKIS R 793.7 NONSPECIFIC (ABNORMAL) FINDINGS ON RADIOLOGICAL AND OTHER EXAMINATION OF MUSCULOSKELETAL SYSTEM 07/25/2014 HANNAH AUTOMATIC [employer]OVE [employer] AND FORMER, BELKIS R 793.7 NONSPECIFIC (ABNORMAL) FINDINGS ON [...] OF MUSCULOSKELETAL SYSTEM 07/26/2014 HANNAH BELKIS R AUTOMATIC [employer]OVE [employer] AND FORMER Ot 715.36 07/26/2014 HANNAH BELKIS R AUTOM[employer]IC [employer]OVE [employer] AND FORMER Ot 724.2 07/26/2014 HANNAH BELKIS R AUTOM[employer]OVE [employer] FORMER Ot 738.4 07/26/2014 JESÚS JONES, PEE T Ot 724.5 BACKACHE NOS 07/26/2014 JESÚS JONES, PEE Gtz Ot 805.2 FX DORSAL VERTEBRA-CLOSE 07/26/2014 JESÚS JONES, PEE T Ot E000.8 OTHER EXTERNAL CAUSE STATUS 07/26/2014 JESÚS JONES, PEE T Ot E888.9 FALL NOS 07/28/2014 HANNAH BELKIS R [employer]OM[employer]OVE [employer] FORMER Ot 715.36 07/28/2014 HANNAH BELKIS R AUTOM[employer]OVE [employer] FORMER Ot 724.2 07/28/2014 HANNAH BELKIS R AUTOM[employer]IC [employer]OVE [employer] AND FORMER Ot 738.4 08/02/2014 HANNAH BELKIS R AUTOM[employer]IC [employer]OVE [employer] AND FORMER Ot 715.36 08/02/2014 HANNAH BELKIS R AUTOMATIC [employer]OVE [employer]NER AND FORMER Ot 724.2 08/02/2014 HANNAH BELKIS R AUTOMATIC [employer]OVE [employer]NER AND FORMER Ot 738.4 08/02/2014 HANNAH BELKIS R AUTOMATIC [employer]OVE [employer] AND FORMER Ot 724.1 08/02/2014 HANNAH, BELKIS R AUTOM[employer]IC [employer] AND FORMER Ot 959.19 08/02/2014 HANNAH, BELKIS R AUTOM[employer]IC [employer] AND FORMER Ot E000.8 08/02/2014 HANNAH, BELKIS R AUTOM[employer]IC [employer] AND FORMER Ot E849.0 08/02/2014 HANNAH, BELKIS R AUTOM[employer]IC [employer] AND FORMER Ot E885.9 08/03/2014 HANNAH AUTOMATIC [employer]NER AND FORMER, BELKIS R 780.60 FEVER, UNSPECIFIED 08/03/2014 HANNAH AUTOM[employer]IC [employer] AND FORMER, BELKIS R 786.2 COUGH 08/03/2014 HANNAH AUTOMATIC [employer]NER AND FORMER, BELKIS R 780.60 FEVER, UNSPECIFIED 08/03/2014 HANNAH AUTOMATIC GLOVE T[employer]NER AND FORMER, BELKIS R 786.2 COUGH 08/03/2014 HANNAH AUTOMATIC GLOVE [employer]NER AND FORMER, BELKIS R 780.60 FEVER, UNSPECIFIED 08/03/2014 HANNAH AUTOMATIC GLOVE T[employer]NER AND FORMER, BELKIS R 786.2 COUGH 08/03/2014 HANNAH AUTOMATIC GLOVE T[employer]NER AND FORMER, BELKIS R 780.60 FEVER, UNSPECIFIED 08/03/2014 HANNAH AUTOMATIC [employer]OVE [employer]NER AND FORMER, BELKIS R 786.2 COUGH 08/03/2014 DAVID SAND MIXER, BARR[place] M 780.60 FEVER, UNSPECIFIED 08/03/2014 DAVID SAND MIXER, [place] M 786.2 COUGH 08/03/2014 MACARIO DDS, CLEVE 780.60 FEVER, UNSPECIFIED 08/03/2014 MACARIO DDS, CLEVE 786.2 COUGH 08/03/2014 HELLWIG AUTOMATIC GLOVE T[employer]NER AND FORMER, JIHAN E 780.60 FEVER, UNSPECIFIED 08/03/2014 HELLWIG AUTOMATIC [employer]OVE [employer]NER AND FORMER, JIHAN E 786.2 COUGH 08/14/2014 HANNAH, BELKIS R AUTOMATIC GLOVE [employer] AND FORMER Ot 724.1 08/14/2014 HANNAH, BELKIS R AUTOM[employer]IC [employer]OVE [employer] FORMER Ot 959.19 08/14/2014 HANNAH, BELKIS R AUTOMATIC [employer]OVE [employer] AND FORMER Ot E000.8 08/14/2014 HANNAH, BELKIS R AUTOMATIC [employer]OVE [employer] AND FORMER Ot E849.0 08/14/2014 HANNAH, BELKIS R AUTOM[employer]IC [employer]OVE [employer] AND FORMER Ot E885.9 08/26/2014 HANNAH, BELKIS R AUTOMATIC GLOVE [employer] AND FORMER Ot 715.36 08/26/2014 HANNAH, BELKIS R AUTOMATIC [employer]OVE [employer] AND FORMER Ot 724.2 08/26/2014 HANNAH, BELKIS R AUTOMATIC [employer]OVE [employer]NER AND FORMER Ot 738.4 08/26/2014 HANNAH, BELKIS R AUTOMATIC [employer]OVE [employer]NER AND FORMER Ot 724.1 08/26/2014 HANNAH, BELKIS R AUTOMATIC [employer]OVE [employer] AND FORMER Ot 959.19 08/26/2014 HANNAH, BELKIS R [employer] AND FORMER Ot E000.8 08/26/2014 HANNAH BELKIS R [employer] AND FORMER Ot E849.0 08/26/2014 HANNAH, BELKIS R [employer] AND FORMER Ot E885.9 08/26/2014 LUZ ARZO [employer] FORMER Ot 724.5 BACKACHE NOS 08/26/2014 LUZ RAZO APRN Ot 959.19 OTH INJURY OF OTHER SITES OF TRUNK 08/26/2014 LUZ RAZO [employer] FORMER Ot E000.8 OTHER EXTERNAL CAUSE STATUS 08/26/2014 LUZ RAZO [employer] FORMER Ot E849.0 ACCIDENT IN HOME 08/26/2014 LUZ RAZO [employer] FORMER Ot E880.9 FALL ON STAIR/STEP NEC 08/29/2014 HANNAH GOLDSTEINN, BELKIS R 728.85 SPASM OF MUSCLE 08/29/2014 HANNAH [employer]MER, BELKIS R 780.93 MEMORY LOSS 08/29/2014 HANNAH [employer] FORMER, BELKIS R 728.85 SPASM OF MUSCLE 08/29/2014 HANNAH [employer] FORMER, BELKIS R 780.93 MEMORY LOSS 08/29/2014 HANNAH [employer] FORMER, BELKIS R 728.85 SPASM OF MUSCLE 08/29/2014 HANNAH [employer] FORMER, BELKIS R 780.93 MEMORY LOSS 08/29/2014 BARRINGTON LOYA M 728.85 SPASM OF MUSCLE 08/29/2014 DAVID RAMIREZ, [place] M 780.93 MEMORY LOSS 08/29/2014 MACARIO DDS, CLEVE 728.85 SPASM OF MUSCLE 08/29/2014 MACARIO DDS, CLEVE 780.93 MEMORY LOSS 08/29/2014 JIHAN ALDANA APRN 728.85 SPASM OF MUSCLE 08/29/2014 JIHAN ALDANA APRN 780.93 MEMORY LOSS 08/31/2014 HANNAH, BELKIS R [employer] FORMER Ot 715.36 08/31/2014 HANNAH, BELKIS R [employer] FORMER Ot 724.2 08/31/2014 HANNAH, BELKIS R [employer] FORMER Ot 738.4 08/31/2014 HANNAH, BELKIS R [employer] FORMER Ot 724.1 08/31/2014 HANNAH, BELKIS R [employer] AND FORMER Ot 959.19 08/31/2014 HANNAH BELKIS R [employer] AND FORMER Ot E000.8 08/31/2014 HANNAH, BELKIS R [employer] FORMER Ot E849.0 08/31/2014 HANNAH, BELKIS R [employer] AND FORMER Ot E885.9 09/01/2014 HANNAH, BELKIS R [employer] FORMER Ot 728.85 09/01/2014 HANNAH, BELKIS R [employer] FORMER Ot 780.93 09/05/2014 HANNAH [employer] FORMER, BELKIS R 266.2 VITAMIN B12 DEFICIENCY 09/05/2014 HANNAH [employer]MER, BELKIS R 266.2 VITAMIN B12 DEFICIENCY 09/05/2014 DAVID RAMIREZ, [place] M 266.2 VITAMIN B12 DEFICIENCY 09/05/2014 MACARIO DDS, CLEVE 266.2 VITAMIN B12 DEFICIENCY 09/05/[address] [facility] 266.2 VITAMIN B12 DEFICIENCY 09/20/2014 DAVID RAMIREZ, [place] M 780.52 INSOMNIA UNSPECIFIED 09/20/2014 MACARIO DDS, CLEVE 780.52 INSOMNIA UNSPECIFIED 09/20/2014 [facility] 780.52 INSOMNIA UNSPECIFIED 09/20/2014 HANNAH BELKIS R [employer] FORMER Ot 715.36 09/20/2014 HANNAH BELKIS R [employer] FORMER Ot 724.2 09/20/2014 HANNAH, BELKIS R [employer] FORMER Ot 738.4 09/20/2014 HANNAH, BELKIS R [employer] FORMER Ot 724.1 09/20/2014 HANNAH, BELKIS R [employer] FORMER Ot 959.19 09/20/2014 HANNAH, BELKIS R [employer] AND FORMER Ot E000.8 09/20/2014 HANNAH, BELKIS R [employer] AND FORMER Ot E849.0 09/20/2014 HANNAH, BELKIS R [employer] AND FORMER Ot E885.9 09/20/2014 HANNAH BELKIS R [employer] FORMER Ot 728.85 09/20/2014 HANNAH BELKIS R [employer] FORMER Ot 780.93 09/20/2014 GEMINI RUSH Ot 599.0 URIN TRACT INFECTION NOS 09/20/2014 GEMINI RUSH Ot 724.2 LUMBAGO 09/20/2014 GEMINI RUSH Ot 924.8 MULTIPLE CONTUSIONS NEC 09/20/2014 GEMINI RUSH Ot E000.8 OTHER EXTERNAL CAUSE STATUS 09/20/2014 GEMINI RUSH Ot E888.9 FALL NOS 09/22/2014 BELKIS YOUNG R [employer] FORMER Ot 728.85 09/22/2014 HANNAH, BELKIS R [employer] FORMER Ot 780.93 10/08/2014 JESÚS JONES, PEE Gtz Ot 625.9 FEM GENITAL SYMPTOMS NOS 10/08/2014 JESÚS JONES, PEE Gtz Ot 787.02 NAUSEA ALONE 10/18/2014 JIHAN ALDANA APRN 625.9 UNSPECIFIED SYMPTOM ASSOCIATED WITH FEMALE GENITAL ORGANS 10/20/2014 JIHAN ALDANA APRN V73.81 HPV SCREENING 10/20/2014 JIHAN ALDANA APRN V76.2 CERVICAL CANCER SCREENING (PAP SMEAR) 03/09/2015 HANNAH, BELKIS R [employer] AND FORMER Ot 715.36 03/09/2015 HANNAH, BELKIS R [employer] AND FORMER Ot 724.2 03/09/2015 HANNAH, BELKIS R [employer] AND FORMER Ot 738.4 03/09/2015 HANNAH, BELKIS R [employer] AND FORMER Ot 724.1 03/09/2015 HANNAH, BELKIS R [employer] AND FORMER Ot 959.19 03/09/2015 HANNAH, BELKIS R [employer] AND FORMER Ot E000.8 03/09/2015 HANNAH, BELKIS R [employer] AND FORMER Ot E849.0 03/09/2015 HANNAH, BELKIS R [employer] AND FORMER Ot E885.9 03/09/2015 HANNAH, BELKIS R [employer] AND FORMER Ot 728.85 03/09/2015 HANNAH, BELKIS R [employer] AND FORMER Ot 780.93 03/09/2015 RAMIN JONES, LORETO Kelly Ot 244.9 HYPOTHYROIDISM NOS 03/09/2015 RAMIN JONES, LORETO Kelly Ot 401.9 HYPERTENSION NOS 03/09/2015 RAMIN JONES, LORETO Kelly Ot 719.47 JOINT PAIN-ANKLE 03/09/2015 RAMIN JONES, LORETO Kelly Ot 727.06 TENOSYNOVITIS FOOT/ANKLE 03/09/2015 HANNAH, BELKIS R [employer] AND FORMER Ot 715.36 03/09/2015 HANNAH, BELKIS R [employer] AND FORMER Ot 724.2 03/09/2015 HANNAH, BELKIS R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
--- NOTE | 2018-05-09 16:06 | ED EENT ---
History of Present Illness General Chief Complaint: Ear Problems Stated Complaint: DOUBLE EAR INFECTION, PAIN IN THROAT NOW Nursing Triage Note: PT PRESENTS TO ER WITH COMPLAINT OF BILATERAL EAR PAIN AND THROAT PAIN. PT STATES SGE WAS DIAGNOSED WITH DENTAL ABSCESS A WEEK AGO AND STARTED ON CLINDAMYCIN Source: patient Exam Limitations: no limitations History of Present Illness Date Seen by Provider: May 09, 2018 Time Seen by Provider: 16:01 Initial Comments Patient is a 42-year-old female who presents to the emergency room with complaints of bilateral ear pain and a sore throat for the past week. She reports that she has been seen at [facility] 4 times for her ear pain and sore throat. She is also currently on an antibiotic clindamycin for a dental infection and she is currently on a steroid Dosepak for the inflammation to her throat. Timing/Duration: last week Location: ear (R), ear (L), mouth Prearrival Treatment: over the counter meds Associated Symptoms: sore throat Allergies and Home Medications Allergies Coded Allergies: Penicillins (Unverified Allergy, Mild, 12/07/08) codeine (Verified Allergy, Unknown, 01/21/14) morphine (Verified Adverse Reaction, Mild, VOMITING, 09/28/12) tramadol (Unverified Adverse Reaction, Mild, itching, 07/26/14) Home Medications Doxylamine Succinate 25 Mg Tablet, 50 MG PO HS, (Reported) TAKES 2 (25 MG) TABLETS Ibuprofen 200 Mg Tablet, 800 MG PO BID PRN for PAIN, (Reported) Naproxen 500 Mg Tablet, 500 MG PO BID PRN for PAIN-MODERATE TO SEVERE Prescribed by: LUZ RAZO on 12/28/17 1041 Permethrin 60 Gm Cream..g., 60 GM TP UD use as directed by the stitching department supervisor. Repeat in 14 days. Prescribed by: GEMINI NOVOA on 12/26/17 1249 Prednisone 20 Mg Tab, 40 MG PO DAILY Prescribed by: GEMINI NOVOA on 12/26/17 1249 Sulfamethoxazole/Trimethoprim 1 Each Tablet, 1 EACH PO BID Prescribed by: MARTÍN GALAN on 10/11/17 1030 Sulfamethoxazole/Trimethoprim 1 Each Tablet, 1 EACH PO BID Prescribed by: LUZ RAZO on 12/28/17 1041 Patient Home Medication List Home Medication List Reviewed: Yes Review of Systems Review of Systems Constitutional: see HPI; No chills, No fever Ears: See HPI, Pain (bilateral ear) Throat: see HPI, pain All Other Systems Reviewed Negative Unless Noted: Yes Past Mmccjba-Vqmgiz-Yshjug Hx Past Med/Social Hx: Reviewed Nursing Past Med/Soc Hx Patient Social History Alcohol Use: Denies Use Recreational Drug Use: No Smoking Status: Current Everyday Smoker Type Used: Cigarettes Recent Foreign Travel: No Contact w/Someone Who Travel: No Recent Infectious Disease Expo: No Recent Hopitalizations: No Immunizations Up To Date Tetanus Booster (TDap): Less than 5yrs Date of Influenza Vaccine: May 24, 2014 Seasonal Allergies Seasonal Allergies: No Past Medical History Surgeries: Yes (Ureterovesicular surgery) Bladder Surgery, Section, Gallbladder, Hysterectomy, Tubal Ligation Respiratory: No Cardiac: Yes Hypertension Neurological: No 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 Disorders: Yes (CPP, MENORRHAGIA, CINIII) Female 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 Disorders: Menstrual Problems 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 Sexually Transmitted Disease: Yes Kidney Stones, Neurogenic Bladder, UTI-Chronic Gastrointestinal: Yes Gastroesophageal Reflux, Irritable Bowel Musculoskeletal: Yes (compression fracture) Arthritis, Fibromyalgia, Chronic Back Pain, Fractures Endocrine: Yes Hypothyroidsim Cancer: Yes Cervical Psychosocial: Yes Sleep Difficulties, Anxiety Integumentary: Yes (patient did have varicella zoster as a child.) Recent Skin Changes Blood Disorders: Yes (ANEMIA) Family Medical History Reviewed Nursing Family Hx No Pertinent Family Hx Physical Exam Vital Signs Vital Signs - First Documented 05/09/18 15:25 Temp 99.5 Pulse 94 Resp 20 B/P (MAP) 145/103 (117) Pulse Ox 95 O2 Delivery Room Air Height, Weight, BMI Height: 5'1.00" Weight: 270lbs. 0.0oz. 122.154289hf; 43.4 BMI Method:Stated General Appearance: WD/WN, no apparent distress Ears: bilateral ear auricle normal, bilateral ear canal normal, bilateral ear TM normal Nose: normal inspection Cardiovascular: normal peripheral pulses, regular rate, rhythm, no edema, no gallop, no JVD, no murmur Respiratory: chest non-tender, lungs clear, normal breath sounds, no respiratory distress, no accessory muscle use Neurologic/Psychiatric: alert, normal mood/affect, oriented x 3 Skin: normal color, warm/dry Progress/Results/Core Measures Results/Orders Lab Results Laboratory Tests Test 05/09/18 16:06 Range/Units Group A Streptococcus Screen NEGATIVE NEGATIVE My Orders Orders - AGUSTIN GARCIA Rapid Strep A Screen (05/09/18 15:59) Hydrocodone/Apap 5/325 Tablet (Lortab 5 (05/09/18 17:15) Vital Signs/I&O Blood Pressure Mean: 117 Progress Progress Note : Time: 16:15 Progress Note I have seen and evaluated the patient. I have Informed her of normal strep test. I have instructed her to continue to use the Clindamycin and steroids that are previously prescribed. She agrees with plan of care, plans for discharge, return precautions were given. Departure Impression Primary Impression: Viral illness Disposition: HOME, SELF-CARE Condition: Stable/Unchanged Departure-Patient Inst. Decision time for Depature: 16:15 Referrals: [facility] (PCP/Family) Primary Care Physician Patient Instructions: VIRAL RESP ILLNESS-ADULT Add. Discharge Instructions: Continue your caki-qcc-ibmswjy medications for cough cold and flu symptoms. You may use Afrin this might help with the nasal drainage and congestion. Be sure to follow the labels directions. Ibuprofen and Tylenol as directed by the bottle for pain. Sucrets throat lozenges for discomfort. Follow-up with [facility] in 1 week for a recheck. Continue previously prescribed medications. All discharge instructions reviewed with patient and/or family. Voiced understanding. AGUSTIN GARCIA May 09, 2018 16:06
[2018-05-09] MEDS ORDERED: HYDROcodone/APAP 5 MG/325 MG (LORTAB) TAB PO ONE (17:15)
[2018-05-09 18:03] VITALS: BP 176/116
== END 2018-05-09 18:05 | disposition home or self-care (01) ==
LOC: EDUNIT# 14:41 → ER 14:42
DX: B34.9 Viral infection, unspecified (principal); I10 Essential (primary) hypertension; K21.9 Gastro-esophageal reflux disease without esophagitis; E03.9 Hypothyroidism, unspecified; F41.9 Anxiety disorder, unspecified; D64.9 Anemia, unspecified; F17.210 Nicotine dependence, cigarettes, uncomplicated; Z86.19 Personal history of other infectious and parasitic diseases; Z98.890 Other specified postprocedural states; Z85.41 Personal history of malignant neoplasm of cervix uteri; Z87.442 Personal history of urinary calculi; Z87.440 Personal history of urinary (tract) infections; Z87.19 Personal history of other diseases of the digestive system; Z98.51 Tubal ligation status; Z90.710 Acquired absence of both cervix and uterus; Z88.0 Allergy status to penicillin; Z88.5 Allergy status to narcotic agent; Z88.6 Allergy status to analgesic agent; Z79.52 Long term (current) use of systemic steroids
CPT/HCPCS: 87430

== ENCOUNTER 2019-03-04 10:01 | Emergency (ER) | payer MEDICAID ==
[~2019-03-04] VITALS: Ht 154.9 cm; Wt 113.4 kg
--- NOTE | 2019-03-04 10:41 | NUR ---
left eye and left cheek. pt also c/o h/a. pain rating 7. dexter/ is worse pain. pt also c/o anxiety.and is crying tears. pt relates she has [facility] with [facility] already. on exam no obvious injury around left eye noted. left zygoma is slightly red and slightly swollen. back of neck has ? bruise on it. pt relates she is depressed over her situation but is not suicidal. lungs cta bilaterally. done corine pt at 1049.
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
[2019-03-04 12:28] VITALS: BP 0/0
--- NOTE | 2019-03-04 12:28 | NUR ---
someone else d/cd pt. i am merely doing the computer part of it.
== END 2019-03-04 12:28 | disposition home or self-care (01) ==
LOC: EDUNIT# 10:01 → ER 10:02
DX: S00.83XA Contusion of other part of head, initial encounter (principal); S05.12XA Contusion of eyeball and orbital tissues, left eye, initial encounter; S20.221A Contusion of right back wall of thorax, initial encounter; I10 Essential (primary) hypertension; K21.9 Gastro-esophageal reflux disease without esophagitis; K58.9 Irritable bowel syndrome, unspecified; M79.7 Fibromyalgia; E03.9 Hypothyroidism, unspecified; F41.9 Anxiety disorder, unspecified; R40.2142 Coma scale, eyes open, spontaneous, at arrival to emergency department; R40.2252 Coma scale, best verbal response, oriented, at arrival to emergency department; R40.2362 Coma scale, best motor response, obeys commands, at arrival to emergency department; Z85.41 Personal history of malignant neoplasm of cervix uteri; Z88.0 Allergy status to penicillin; Z88.5 Allergy status to narcotic agent; Z98.51 Tubal ligation status; Z90.710 Acquired absence of both cervix and uterus; Y04.2XXA Assault by strike against or bumped into by another person, initial encounter; Y92.009 Unspecified place in unspecified non-institutional (private) residence as the place of occurrence of the external cause
CPT/HCPCS: 70450; 72125

== ENCOUNTER 2021-01-09 07:55 | Emergency (ER) | payer SELFPAY ==
[~2021-01-09] VITALS: Ht 154 cm; Wt 124.0 kg
[~2021-01-09 07:55] MED LIST changes: -DULO30CA48; +DULO30CA49; -IBUP-2055 PO; +IBUP-2473 PO; -OMEP20CA12; +OMEP20CA18
[2021-01-09] MEDS ORDERED: LIDOCAINE 1% INJ 20 ML 20 ML VIAL INJ ONE (08:30)
[2021-01-09] MEDS ORDERED: IBUPROFEN TABLET 200 MG TAB PO ONE (08:30)
[2021-01-09] MEDS ORDERED: ACHD5005 PO (10:22)
[2021-01-09] MEDS ORDERED: SULF1TAB35 PO (10:22)
--- NOTE | 2021-01-09 10:24 | ED General ---
General Chief Complaint: Skin/Wound Problems Stated Complaint: VAGINAL ABCESS Nursing Triage Note: ARRIVED VIA AMB WITHOUT DIFFICULTY. STATES SHE HAS A VAGINAL ABSCESS. Nursing Sepsis Screen: No Definite Risk Source of Information: Patient Exam Limitations: No Limitations History of Present Illness Date Seen by Provider: January 09, 2021 Time Seen by Provider: 08:13 Initial Comments This 45-year-old woman presents to the emergency room with painful swelling of the right labia majora over the past few days. She reports the lump has doubled in size overnight. She denies any fever. It is extremely tender to the touch. There is been no drainage. She denies any history of abscesses or I&D. Patient had previously been seeing [facility] in [place], [place]. She has not established with a primary care provider in [place] yet. Allergies and Home Medications Allergies Coded Allergies: Penicillins (Unverified Allergy, Mild, 12/07/08) codeine (Verified Allergy, Unknown, 01/21/14) morphine (Verified Adverse Reaction, Mild, VOMITING, 09/28/12) tramadol (Unverified Adverse Reaction, Mild, itching, 07/26/14) Home Medications Doxylamine Succinate 25 Mg Tablet, 50 MG PO HS, (Reported) TAKES 2 (25 MG) TABLETS Hydrocodone/Acetaminophen 1 Each Tablet, 1 TAB PO Q4H PRN for PAIN-BREAKTHROUGH Prescribed by: PEE SCHMITT on 01/09/21 1023 Ibuprofen 200 Mg Tablet, 800 MG PO BID PRN for PAIN, (Reported) Naproxen 500 Mg Tablet, 500 MG PO BID PRN for PAIN-MODERATE TO SEVERE Prescribed by: LUZ RAZO on 12/28/17 1041 Permethrin 60 Gm Cream..g., 60 GM TP UD use as directed by the cloth grader supervisor. Repeat in 14 days. Prescribed by: GEMINI NOVOA on 12/26/17 1249 Prednisone 20 Mg Tab, 40 MG PO DAILY Prescribed by: GEMINI NOVOA on 12/26/17 1249 Sulfamethoxazole/Trimethoprim 1 Each Tablet, 1 EACH PO BID Prescribed by: MARTÍN GALAN on 10/11/17 1030 Sulfamethoxazole/Trimethoprim 1 Each Tablet, 1 EACH PO BID Prescribed by: LUZ RAZO on 12/28/17 1041 Sulfamethoxazole/Trimethoprim 1 Each Tablet, 1 EACH PO BID Prescribed by: PEE SCHMITT on 01/09/21 1022 Patient Home Medication List Home Medication List Reviewed: Yes Review of Systems Review of Systems Constitutional: no symptoms reported EENTM: no symptoms reported Respiratory: no symptoms reported Cardiovascular: no symptoms reported Gastrointestinal: no symptoms reported Genitourinary: see HPI : No Skin: see HPI Psychiatric/Neurological: No Symptoms Reported Hematologic/Lymphatic: No Symptoms Reported Immunological/Allergic: no symptoms reported Past Owznwql-Xtrucs-Ehoasb Hx Past Med/Social Hx: Reviewed Nursing Past Med/Soc Hx Patient Social History Alcohol Use: Denies Use Smoking Status: Current Everyday Smoker Type Used: Cigarettes Recent Infectious Disease Expo: No Recent Hopitalizations: No Immunizations Up To Date Tetanus Booster (TDap): Less than 5yrs Date of Influenza Vaccine: May 24, 2014 Seasonal Allergies Seasonal Allergies: No Past Medical History Surgeries: Yes (Ureterovesicular surgery) Bladder Surgery, Section, Gallbladder, Hysterectomy, Tubal Ligation Respiratory: No Cardiac: Yes Hypertension Neurological: No 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 Disorders: Yes (CPP, MENORRHAGIA, CINIII) Female 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 Sexually Transmitted Disease: Yes Genitourinary: Yes Kidney Stones, Neurogenic Bladder, UTI-Chronic Gastrointestinal: Yes Gastroesophageal Reflux, Irritable Bowel Musculoskeletal: Yes (compression fracture) Arthritis, Fibromyalgia, Chronic Back Pain, Fractures Endocrine: Yes Hypothyroidsim Cancer: Yes Cervical Psychosocial: Yes Sleep Difficulties, Anxiety Integumentary: Yes (patient did have varicella zoster as a child.) Recent Skin Changes Blood Disorders: Yes (ANEMIA) Family Medical History No Pertinent Family Hx Physical Exam Vital Signs Vital Signs - First Documented 01/09/21 08:00 Temp 37.0 Pulse 84 Resp 16 B/P (MAP) 151/128 (136) Pulse Ox 98 O2 Delivery Room Air Capillary Refill : Less Than 3 Seconds Height, Weight, BMI Height: 5'1.00" Weight: 250lbs. 0.0oz. 113.176892gl; 52.00 BMI Method:Stated General Appearance: WD/WN, Mild Distress HEENT: PERRL/EOMI, Normal ENT Inspection Respiratory: Lungs Clear, Normal Breath Sounds Cardiovascular: Regular Rate, Rhythm, No Edema Gastrointestinal: Non Tender, Soft Genital/Rectal: Other (Swelling and erythema of the right labia majora with i ndurated abscess at the inferior aspect. This seems to be more within the labia majora around rather than a Bartholin gland cyst. Complex fluid collection confirmed by bedside ultrasound.) Extremity: Normal Inspection, No Pedal Edema Neurologic/Psychiatric: Alert, Oriented x3, No Motor/Sensory Deficits, Normal Mood/Affect, sap ariba consultant II-XII Norm as Tested Skin: Normal Color, Warm/Dry Procedures/Interventions I&D : Site: Right labia majora, inferior aspect Blade Size: 11 Progress Skin was cleaned with chlorhexidine. About 3 mL of lidocaine was administered by injection for local anesthetic. A 1 cm incision was made over the most superficial area of the abscess. About 1 mL of thick purulent material was expressed. Wound cavity was irrigated with a saline flush. Culture was collected during the procedure. Patient tolerated the procedure well. Progress/Results/Core Measures Suspected Sepsis Recent Fever Within 48 Hours: No Infection Criteria Present: Suspected New Infection New/Unexplained Altered Menta: No Sepsis Screen: No Definite Risk SIRS Temperature: Pulse: 84 Respiratory Rate: 16 Blood Pressure 151 /128 Mean: 136 Results/Orders My Orders Orders - PEE ESPINOSA MD Lidocaine 1% Inj 20 Ml (Xylocaine 1% Inj (01/09/21 08:30) Wound Culture (01/09/21 08:23) Ibuprofen Tablet (Motrin Tablet) (01/09/21 08:30) Medications Given in ED Current Medications Medications Dose Ordered Sig/Rubi Route Start Time Stop Time Status Last Admin Dose Admin Ibuprofen 600 mg ONCE ONCE PO 01/09/21 08:30 01/09/21 08:31 DC 01/09/21 08:33 600 MG Lidocaine HCl 20 ml ONCE ONCE INJ 01/09/21 08:30 01/09/21 08:31 DC 01/09/21 08:34 20 ML Vital Signs/I&O 01/09/21 01/09/21 08:00 10:32 Temp 37.0 37.0 Pulse 84 81 Resp 16 16 B/P (MAP) 151/128 (136) 200/119 (136) Pulse Ox 98 98 O2 Delivery Room Air Capillary Refill : Less Than 3 Seconds Blood Pressure Mean: 136 Progress Note : Progress Note Patient was seen and examined. Abscess was confirmed with ultrasound. This was felt to be in the labia majora rather than a Bartholin gland cyst based on location and depth on ultrasound. The area was anesthetized with about 3 mL of lidocaine after cleaning the skin with chlorhexidine. An incision was then made over the most superficial aspect of the abscess. Loculations were broken with a hemostat. Approximately 1 mL of thick purulent fluid was expressed. The opening was irrigated with a saline flush. Culture was collected. Patient had been pretreated with ibuprofen. Departure Impression Primary Impression: Labial abscess Additional Impression: Encounter for incision and drainage procedure Disposition: HOME, SELF-CARE Condition: Improved Departure-Patient Inst. Referrals: [facility] [place] (PCP/Family) Primary Care Physician Patient Instructions: Abscess Incision and Drainage, Skin Abscess Add. Discharge Instructions: Complete your antibiotics as prescribed. Use ibuprofen up to 600 mg every 6 hours as needed for primary pain management. Add hydrocodone as prescribed for pain not controlled by ibuprofen. Follow-up with a primary care provider soon as possible. You may review abscess culture results when you follow-up. Return to the emergency room if you have worsening symptoms or develop new symptoms such as fever. When you return home perform a sitz bath, sit in the shower, or use a warm compress for 15 to 30 minutes to encourage drainage. Repeat this 3 times a day for the next few days to encourage drainage. The incision may continue to drain for several days while there is active infection and until healing occurs. Call with questions or concerns. All discharge instructions reviewed with patient and/or family. Voiced understanding. Scripts Hydrocodone/Acetaminophen (Hydrocodone-Acetamin 5-325 mg) 1 Each Tablet 1 TAB PO Q4H PRN for PAIN-BREAKTHROUGH, #5 TAB Prov: PEE ESPINOSA MD 01/09/21 Sulfamethoxazole/Trimethoprim (Bactrim Ds Tablet) 1 Each Tablet 1 EACH PO BID, #14 TAB Prov: PEE ESPINOSA MD 01/09/21 Work/School Note: Work Release Form Date Seen in the Emergency Department: January 09, 2021 Return to Work: January 11, 2021 Restrictions: No Restrictions PEE ESPINOSA MD January 09, 2021 10:23
[2021-01-09 10:32] VITALS: BP 200/119
== END 2021-01-09 10:32 | disposition home or self-care (01) ==
LOC: EDUNIT# 07:55 → ER 07:57
DX: N76.4 Abscess of vulva (principal); I10 Essential (primary) hypertension; G89.29 Other chronic pain; M54.9 Dorsalgia, unspecified; F17.210 Nicotine dependence, cigarettes, uncomplicated; Z88.0 Allergy status to penicillin; Z88.5 Allergy status to narcotic agent
CPT/HCPCS: 87070; 87205; 99284

== ENCOUNTER 2021-02-04 01:28 | Emergency (ER) | payer SELFPAY ==
[~2021-02-04] VITALS: Ht 154.9 cm; Wt 120.0 kg
[2021-02-04] MEDS ORDERED: KETOROLAC 30 MG/ML VIAL IVP STA (01:41)
[2021-02-04] MEDS ORDERED: CLINDAMYCIN 600 MG/50 ML IVPB 50 ML IV ONE (01:45)
[2021-02-04] MEDS ORDERED: TETANUS,DIPTH,PERTUSS P/F (BOOSTRIX) 0.5 ML VIAL IM ONE (02:00)
--- NOTE | 2021-02-04 02:00 | ED Integumentary General ---
General Chief Complaint: Skin/Wound Problems Stated Complaint: INSECT BITE ON STOMACH Source: patient History of Present Illness Date Seen by Provider: Feb 04, 2021 Time Seen by Provider: 01:34 Initial Comments PT ARRIVES VIA POV FROM HOME C/O PAINFUL RED AREA ON LEFT LOWER ABDOMEN FOR THE LAST COUPLE OF DAYS "THOUGHT IT MIGHT BE A SPIDER BITE OR SOMETHING" --DID NOT SEE OR FEEL ANYTHING BITE HERE HAS NOT CHECKED TEMP, BUT FEELS HOT THEN COLD C/O NAUSEA, NO VOMITING, NO DIARRHEA STATES SHE "CAN'T TAKE THE PAIN ANYMORE" --RATES PAIN 91/0 HAS NOT TAKEN ANYTHING FOR PAIN AT ANY TIME SEEN HERE 01/09/21 FOR LABIAL ABSCESS--SENT HOME WITH RX'S FOR BACTRIM AND HYDROCODONE. CULTURE GREW OUT MRSA, WITH MULTIPLE ANTIBIOTIC RESISTANCE, BUT SENSITIVE TO BACTRIM. PT DENIES HISTORY OF PRIOR SKIN INFECTIONS. PT IS NOT DIABETIC STATES SHE HAS NOT BEEN TAKING ANY OF HER MEDICATIONS FOR AT LEAST 3 MONTHS--STATES SHE IS "JUST TOO BUSY" PCP: RUBEN--STATES SHE "JUST MOVED BACK HERE" FROM [place], [place] 1 MONTH AGO. HAS NOT RE-ESTABLISHED CARE WITH [facility] [place] --STATES SHE IS "JUST TOO BUSY" --STATES SHE STILL WORKS IN [employer], [place]--WORKS AT [employer] Allergies and Home Medications Allergies Coded Allergies: Penicillins (Unverified Allergy, Mild, 12/07/08) codeine (Verified Allergy, Unknown, 01/21/14) morphine (Verified Adverse Reaction, Mild, VOMITING, 09/28/12) tramadol (Unverified Adverse Reaction, Mild, itching, 07/26/14) Home Medications Doxylamine Succinate 25 Mg Tablet, 50 MG PO HS, (Reported) TAKES 2 (25 MG) TABLETS Hydrocodone/Acetaminophen 1 Each Tablet, 1 TAB PO Q4H PRN for PAIN-BREAKTHROUGH Prescribed by: PEE SCHMITT on 01/09/21 1023 Ibuprofen 200 Mg Tablet, 800 MG PO BID PRN for PAIN, (Reported) Ketorolac Tromethamine 10 Mg Tablet, 10 MG PO Q6H Prescribed by: JOE STEWART on 02/04/21 0306 Naproxen 500 Mg Tablet, 500 MG PO BID PRN for PAIN-MODERATE TO SEVERE Prescribed by: LUZ RAZO on 12/28/17 1041 Permethrin 60 Gm Cream..g., 60 GM TP UD use as directed by the dry box operator. Repeat in 14 days. Prescribed by: GEMINI NOVOA on 12/26/17 1249 Prednisone 20 Mg Tab, 40 MG PO DAILY Prescribed by: GEMINI NOVOA on 12/26/17 1249 Sulfamethoxazole/Trimethoprim 1 Each Tablet, 1 EACH PO BID Prescribed by: MARTÍN GALAN on 10/11/17 1030 Sulfamethoxazole/Trimethoprim 1 Each Tablet, 1 EACH PO BID Prescribed by: LUZ RAZO on 12/28/17 1041 Sulfamethoxazole/Trimethoprim 1 Each Tablet, 1 EACH PO BID Prescribed by: PEE SCHMITT on 01/09/21 1022 Sulfamethoxazole/Trimethoprim 1 Each Tablet, 2 EACH PO BID Prescribed by: JOE STEWART on 02/04/21 0306 Patient Home Medication List Home Medication List Reviewed: Yes Review of Systems Review of Systems Constitutional: chills Respiratory: no symptoms reported Cardiovascular: no symptoms reported Gastrointestinal: see HPI; No constipation, No diarrhea; nausea; No vomiting Genitourinary: no symptoms reported Musculoskeletal: no symptoms reported Skin: see HPI Psychiatric/Neurological: No Symptoms Reported Endocrine: No Symptoms Reported Hematologic/Lymphatic: No Symptoms Reported Past Mztbest-Wntqvx-Iuzfsa Hx Past Med/Social Hx: Reviewed and Corrections made Patient Social History Alcohol Use: Occasionally Uses Drug of Choice: DENIES Smoking Status: Current Everyday Smoker (1 PPD) Type Used: Cigarettes Recent Hopitalizations: No Immunizations Up To Date Tetanus Booster (TDap): Unknown Date of Influenza Vaccine: May 24, 2014 Seasonal Allergies Seasonal Allergies: No Past Medical History Surgeries: Yes (SURGERY FOR URETERO-VESICULAR REFLUX AGE 11;[facility] 11/2009;C- SECTION X 1) Bladder Surgery, Section, Gallbladder, Hysterectomy, Oophorectomy, Tubal Ligation Respiratory: No Cardiac: Yes Hypertension Neurological: No 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 Disorders: Yes (CPP, MENORRHAGIA, CINIII) Female 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 Disorders: 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 Sexually Transmitted Disease: Yes Genitourinary: Yes (URETERO-VESICULAR REFLUX SURGERY AGE 11) Kidney Stones, Neurogenic Bladder, UTI-Chronic, UTI (peds) Gastrointestinal: Yes Gastroesophageal Reflux, Irritable Bowel Musculoskeletal: Yes (compression fracture) Arthritis, Fibromyalgia, Chronic Back Pain, Fractures Endocrine: Yes Hypothyroidsim Cancer: Yes Cervical Psychosocial: Yes (MULTIDRUG OVER DOSE 2009) Sleep Difficulties, Anxiety, Suicide Attempts, Depression Integumentary: Yes (patient did have varicella zoster as a child.) Recent Skin Changes Blood Disorders: Yes (ANEMIA) Family Medical History No Pertinent Family Hx Physical Exam Vital Signs Vital Signs - First Documented 02/04/21 01:34 Temp 36.8 Pulse 114 Resp 18 B/P (MAP) 150/98 (115) Pulse Ox 98 O2 Delivery Room Air Capillary Refill : General Appearance: WD/WN, obese, other (DRAMATIC, MOANING) Cardiovascular: regular rate, rhythm, no murmur Respiratory: normal breath sounds Gastrointestinal: soft, other (LEFT LOWER ABDOMEN WITH 20 X 10 CM AREA OF ERYTHEMA, WARMTH, INDURATION, WITH SMALL CENTRAL SCAB. MARKEDLY TENDER. NO FLUCTUANCE. NO DRAINAGE. NO STREAKS. ) Back: no CVA tenderness Extremities: normal inspection, normal capillary refill Neurologic/Psychiatric: no motor/sensory deficits, alert, oriented x 3 Skin: normal color, warm/dry, tattoos/piercings (TATTOOS), other ( ABOVE) Progress/Results/Core Measures Results/Orders Lab Results Laboratory Tests Test 02/04/21 01:54 Range/Units White Blood Count 13.1 H 4.3-11.0 10^3/uL Red Blood Count 4.57 3.80-5.11 10^6/uL Hemoglobin 12.7 11.5-16.0 g/dL Hematocrit 40 35-52 % Mean Corpuscular Volume 87 80-99 fL Mean Corpuscular Hemoglobin 28 25-34 pg Mean Corpuscular Hemoglobin Concent 32 32-36 g/dL Red Cell Distribution Width 14.9 H 10.0-14.5 % Platelet Count 257 130-400 10^3/uL Mean Platelet Volume 10.5 9.0-12.2 fL Immature Granulocyte % (Auto) 1 % Neutrophils (%) (Auto) 80 H 42-75 % Lymphocytes (%) (Auto) 10 L 12-44 % Monocytes (%) (Auto) 9 0-12 % Eosinophils (%) (Auto) 1 0-10 % Basophils (%) (Auto) 0 0-10 % Neutrophils # (Auto) 10.5 H 1.8-7.8 10^3/uL Lymphocytes # (Auto) 1.3 1.0-4.0 10^3/uL Monocytes # (Auto) 1.1 H 0.0-1.0 10^3/uL Eosinophils # (Auto) 0.1 0.0-0.3 10^3/uL Basophils # (Auto) 0.0 0.0-0.1 10^3/uL Immature Granulocyte # (Auto) 0.1 0.0-0.1 10^3/uL Sodium Level 139 135-145 MMOL/L Potassium Level 3.6 3.6-5.0 MMOL/L Chloride Level 108 H 98-107 MMOL/L Carbon Dioxide Level 17 L 21-32 MMOL/L Anion Gap 14 5-14 MMOL/L Blood Urea Nitrogen 7 7-18 MG/DL Creatinine 0.79 0.60-1.30 MG/DL Estimat Glomerular Filtration Rate > 60 BUN/Creatinine Ratio 9 Glucose Level 111 H 70-105 MG/DL Calcium Level 9.0 8.5-10.1 MG/DL Corrected Calcium 9.1 8.5-10.1 MG/DL Total Bilirubin 1.1 H 0.1-1.0 MG/DL Aspartate Amino Transf (AST/SGOT) 10 5-34 U/L Alanine Aminotransferase (ALT/SGPT) 11 0-55 U/L Alkaline Phosphatase 79 40-136 U/L Total Creatine Kinase 56 29-168 U/L Total Protein 7.1 6.4-8.2 GM/DL Albumin 3.9 3.2-4.5 GM/DL My Orders Orders - JOE STEWART DO Ed Iv/Invasive Line Start (02/04/21 01:41) Comprehensive Metabolic Panel (02/04/21 01:41) Creatine Kinase (02/04/21 01:41) Ketorolac Injection (Toradol Injection) (02/04/21 01:41) Clindamycin 600 Mg/50 Ml Ivpb (Cleocin P (02/04/21 01:45) Dipht,Pertuss(Acell),Tet Adult (Boostrix (02/04/21 02:00) Cbc With Automated Diff (02/04/21 02:24) Ct Abdomen/Pelvis W (02/04/21 02:24) Vancomycin Injection (Vancomycin Injecti (02/04/21 02:30) Iohexol Injection (Omnipaque 350 Mg/Ml 1 (02/04/21 03:15) Received Contrast (Hold Metformin- Contr (02/04/21 03:15) Ns (Ivpb) (Sodium Chloride 0.9% Ivpb Bag (02/04/21 03:15) Rx-Trimeth/Sulfameth Ds Tab (Rx-Bactrim/ (02/04/21 03:46) Rx-Hydrocodone/Apap 5-325 Mg (Rx-Vicodin (02/04/21 04:00) Medications Given in ED Current Medications Medications Dose Ordered Sig/Rubi Route Start Time Stop Time Status Last Admin Dose Admin Diphtheria/ Tetanus/Acell Pertussis 0.5 ml ONCE ONCE IM 02/04/21 02:00 02/04/21 02:01 DC 02/04/21 02:31 0.5 ML Iohexol 100 ml ONCE ONCE IV 02/04/21 03:15 02/04/21 03:16 DC 02/04/21 03:09 100 ML Sodium Chloride 80 ml ONCE ONCE IV 02/04/21 03:15 02/04/21 03:16 DC 02/04/21 03:09 80 ML Vital Signs/I&O 02/04/21 01:34 Temp 36.8 Pulse 114 Resp 18 B/P (MAP) 150/98 (115) Pulse Ox 98 O2 Delivery Room Air Progress Progress Note : Progress Note GIVEN TORADOL WITH IMPROVEMENT IN PAIN GIVEN IV VANCOMYCIN BASED ON RECENT CULTURE OF LABIAL ABSCESS--MRSA WITH MULTI- DRUG RESISTANCE Diagnostic Imaging Comments CT ABDOMEN/PELVIS--LEFT ABDOMINAL WALL CELLULITIS, NO ABSCES. NO ACUTE FINDINGS IN ABDOMEN OR PELVIS--PER [facility] VIA FAX AT [id number] Reviewed: Reviewed by Me Departure Impression Primary Impression: Abdominal wall cellulitis Additional Impression: Hx MRSA infection Disposition: HOME, SELF-CARE Condition: Stable Departure-Patient Inst. Decision time for Depature: 03:41 Referrals: [facility] (PCP/Family) Primary Care Physician Patient Instructions: MRSA (DC), Cellulitis (Skin Infection), Adult (DC), How to Wash Your Hands Properly Add. Discharge Instructions: TYLENOL NEEDED FOR PAIN OR FEVER--CHECK YOUR TEMPERATURE AT HOME LOTS OF CLEAR LIQUIDS TAKE YOUR MEDICATIONS PRESCRIBED BATHE / WASH HANDS WITH HIBICLENS CLEAN ALL POSSIBLE SURFACES AT HOME WITH BLEACH FOLLOW UP WITH [facility] IN 1-2 DAYS FOR FURTHER CARE FOR THIS PROBLEM AND TO RE- START YOUR REGULAR MEDICATIONS. All discharge instructions reviewed with patient and/or family. Voiced understanding. Scripts Ketorolac Tromethamine (Ketorolac Tromethamine) 10 Mg Tablet 10 MG PO Q6H for Pain, #15 TAB Prov: JOE STEWART DO 02/04/21 Sulfamethoxazole/Trimethoprim (Bactrim Ds Tablet) 1 Each Tablet 2 EACH PO BID for 10 Days, #40 TAB Prov: JOE STEWART DO 02/04/21 JOE STEWART DO Feb 04, 2021 02:00
[2021-02-04 02:12] LABS: ALBUMIN 3.9 GM/DL (3.2-4.5)
[2021-02-04 02:13] LABS: CHLORIDE 108 MMOL/L (98-107); POTASSIUM 3.6 MMOL/L (3.6-5.0); SODIUM 139 MMOL/L (135-145)
[2021-02-04 02:15] LABS: GLUCOSE 111 MG/DL (70-105); TOTAL PROTEIN 7.1 GM/DL (6.4-8.2)
[2021-02-04 02:16] LABS: CARBON DIOXIDE 17 MMOL/L (21-32)
[2021-02-04 02:17] LABS: BILIRUBIN,TOTAL 1.1 MG/DL (0.1-1.0)
[2021-02-04 02:19] LABS: ALKALINE PHOSPHATASE 79 U/L (40-136); CREATININE SERUM 0.79 MG/DL (0.60-1.30); GFR ESTIMATED > 60
[2021-02-04 02:20] LABS: BUN/CREATININE RATIO 9
[2021-02-04 02:22] LABS: ALANINE AMINOTRANSFERASE 11 U/L (0-55); CREATINE KINASE 56 U/L (29-168)
[2021-02-04 02:29] LABS: BASOPHILS % (AUTO) 0 % (0-10); EOSINOPHILS # (AUTO) 0.1 10^3/uL (0.0-0.3); EOSINOPHILS % (AUTO) 1 % (0-10); HEMATOCRIT 40 % (35-52); HEMOGLOBIN 12.7 g/dL (11.5-16.0); LYMPHOCYTES # (AUTO) 1.3 10^3/uL (1.0-4.0); LYMPHOCYTES % (AUTO) 10 % (12-44); MEAN CORPUSCULAR HEMOGLOBIN 28 pg (25-34); MEAN CORPUSCULAR HGB CONC 32 g/dL (32-36); MEAN CORPUSCULAR VOLUME 87 fL (80-99); MEAN PLATELET VOLUME 10.5 fL (9.0-12.2); MONOCYTES # (AUTO) 1.1 10^3/uL (0.0-1.0); MONOCYTES % (AUTO) 9 % (0-12); NEUTROPHILS # (AUTO) 10.5 10^3/uL (1.8-7.8); NEUTROPHILS % (AUTO) 80 % (42-75); PLATELET COUNT 257 10^3/uL (130-400); WHITE BLOOD COUNT 13.1 10^3/uL (4.3-11.0)
[2021-02-04] MEDS ORDERED: KETO10TA PO (03:06)
[2021-02-04] MEDS ORDERED: SULF1TAB35 PO (03:06)
[2021-02-04] MEDS: VANCOMYCIN INJECTION 1,000 MG in NS (IVPB) 250 ML IV SCH ×2 (03:13→04:08)
[2021-02-04] MEDS ORDERED: IOHEXOL 350 MG/ML 100 ML (OMNIPAQUE 350) VIAL IV ONE (03:15)
[2021-02-04] MEDS ORDERED: HOLD METFORMIN - RECEIVED CONTRAST 20 ML VIAL IV SCH (03:15)
[2021-02-04] MEDS ORDERED: NS 100 ML (IVPB) BAG IV ONE (03:15)
[2021-02-04] MEDS ORDERED: RX-TRIMETH/SULFA. 160-800 MG (BACTRIM DS) TAB PPK#2 PO STA (03:46)
[2021-02-04] MEDS ORDERED: methylPREDNISolone 125 MG (Solu-MEDROL) VIAL IVP ONE (04:30)
[2021-02-04] MEDS ORDERED: diphenhydrAMINE 50 MG/ML INJ (BENADRYL) IVP ONE (04:30)
[2021-02-04] MEDS ORDERED: FAMOTIDINE 20MG/2ML IV (PEPCID) IVP ONE (04:30)
[2021-02-04 05:04] VITALS: BP 149/98
--- NOTE | 2021-02-04 07:15 | Diagnostic Imaging Report ---
PROCEDURE: CT abdomen and pelvis with contrast. TECHNIQUE: Multiple contiguous axial images were obtained through the abdomen and pelvis after administration of intravenous contrast. Auto Exposure Controls were utilized during the CT exam to meet ALARA standards for radiation dose reduction. All CT scans use one or more of the following dose optimizing techniques: automated exposure control, MA and/or KvP adjustment based on patient size and exam type or iterative reconstruction. INDICATION: Abdominal wall cellulitis with clinical concern for potential abscess. CORRELATION STUDY: 03/04/2016 FINDINGS: LOWER THORAX: Clear. LIVER: Borderline enlarged with mild steatosis. Small cyst left hepatic lobe. GALLBLADDER: Cholecystectomy. SPLEEN: Unremarkable. PANCREAS: Unremarkable. ADRENAL GLANDS: Unremarkable. KIDNEYS: Asymmetric areas of scarlike formation. No hydronephrosis or obstruction. ABDOMINAL AORTA: Unremarkable, nonaneurysmal. GASTROINTESTINAL TRACT: No obstruction or inflammation. Likely prior appendectomy. No abdominal ascites and/or free air. URINARY BLADDER: Decompressed. REPRODUCTIVE: Post hysterectomy. OSSEOUS STRUCTURES: No acute abnormality. OTHER: Rather pronounced inflammation in the left abdominal wall with skin thickening. Consistent with cellulitis. No evidence for encapsulated abscess formation. IMPRESSION: 1. Left abdominal wall cellulitis. No abscess formation. Initial report was provided by [employer]. Dictated by: Dictated on workstation # [id number]
== END 2021-02-04 05:06 | disposition home or self-care (01) ==
LOC: EDUNIT# 01:28 → ER 01:29
DX: L03.311 Cellulitis of abdominal wall (principal); E66.9 Obesity, unspecified; I10 Essential (primary) hypertension; G89.29 Other chronic pain; M54.9 Dorsalgia, unspecified; F17.210 Nicotine dependence, cigarettes, uncomplicated; Z23 Encounter for immunization; Z86.14 Personal history of Methicillin resistant Staphylococcus aureus infection; Z79.52 Long term (current) use of systemic steroids; Z79.891 Long term (current) use of opiate analgesic
CPT/HCPCS: 36415; 74177; 80053; 82550; 85025; 90715

== ENCOUNTER 2021-02-06 10:51 | Inpatient (IN) | payer SELFPAY ==
[~2021-02-06] VITALS: Ht 154.9 cm; Wt 122.1 kg
[~2021-02-06 10:51] MED LIST changes: +KETO10TA PO
[2021-02-06] MEDS ORDERED: fentaNYL INJ 100 MCG/2 ML AMP IVP STA ×2 (12:19→15:15)
[2021-02-06 12:37] LABS: BASOPHILS % (AUTO) 0 % (0-10); EOSINOPHILS # (AUTO) 0.1 10^3/uL (0.0-0.3); EOSINOPHILS % (AUTO) 1 % (0-10); HEMATOCRIT 39 % (35-52); HEMOGLOBIN 12.3 g/dL (11.5-16.0); LYMPHOCYTES # (AUTO) 1.2 10^3/uL (1.0-4.0); LYMPHOCYTES % (AUTO) 12 % (12-44); MEAN CORPUSCULAR HEMOGLOBIN 28 pg (25-34); MEAN CORPUSCULAR HGB CONC 32 g/dL (32-36); MEAN CORPUSCULAR VOLUME 87 fL (80-99); MONOCYTES % (AUTO) 10 % (0-12); NEUTROPHILS # (AUTO) 7.8 10^3/uL (1.8-7.8); NEUTROPHILS % (AUTO) 77 % (42-75); PLATELET COUNT 294 10^3/uL (130-400); WHITE BLOOD COUNT 10.1 10^3/uL (4.3-11.0)
[2021-02-06 12:49] LABS: ALBUMIN 3.8 GM/DL (3.2-4.5); CHLORIDE 108 MMOL/L (98-107); POTASSIUM 3.7 MMOL/L (3.6-5.0); SODIUM 138 MMOL/L (135-145)
[2021-02-06 12:50] LABS: CALCIUM 8.9 MG/DL (8.5-10.1)
[2021-02-06 12:51] LABS: GLUCOSE 92 MG/DL (70-105)
[2021-02-06 12:52] LABS: TOTAL PROTEIN 7.1 GM/DL (6.4-8.2)
[2021-02-06 12:53] LABS: BILIRUBIN,TOTAL 0.5 MG/DL (0.1-1.0); CARBON DIOXIDE 20 MMOL/L (21-32)
[2021-02-06 12:55] LABS: ALKALINE PHOSPHATASE 88 U/L (40-136); GFR ESTIMATED > 60
[2021-02-06 12:56] LABS: BUN/CREATININE RATIO 14
[2021-02-06 12:58] LABS: ALANINE AMINOTRANSFERASE 12 U/L (0-55)
--- NOTE | 2021-02-06 13:04 | ED General ---
General Chief Complaint: Skin/Wound Problems Stated Complaint: ABD INFECTION Nursing Triage Note: PT AMBULATE TO TRIAGE WITHOUT DIFFICULTY WITH C/O INFECTION ON LEFT LOWER ABD. PT STATES WAS SEEN IN THIS ED FOR SAME C/O ON THURSDAY AND GIVEN ABX. PT STATES SHE HAS BEEN TAKING THE ABX. PT REPORTS PAIN, SWELLING, AND GREEN DRAINAGE AT THE WOUND SITE. Nursing Sepsis Screen: No Definite Risk Source of Information: Patient Exam Limitations: No Limitations History of Present Illness Date Seen by Provider: Feb 06, 2021 Time Seen by Provider: 12:20 Initial Comments Here with report of increasing pain and swelling to the left low abdomen where she has skin wound noted. States that she has had some greenish drainage. Also complains of dysuria. She is on antibiotic (Bactrim DS) and has been taking t hat as directed. Despite that, she states the swelling has worsened and she cannot tolerate the pain currently. Denies nausea, vomiting or diarrhea. Denies fevers. Does state that she feels poorly though. Timing/Duration: 3-4 Days, Getting Worse Severity: Moderate, Severe Associated Systoms: No Chest Pain, No Cough, No Fever/Chills, No Headaches; Malaise; No Nausea/Vomiting, No Shortness of Air; Weakness Allergies and Home Medications Allergies Coded Allergies: Penicillins (Unverified Allergy, Mild, 12/07/08) codeine (Verified Allergy, Unknown, 01/21/14) vancomycin (Verified Allergy, Unknown, Itching, 02/06/21) morphine (Verified Adverse Reaction, Mild, VOMITING, 09/28/12) tramadol (Unverified Adverse Reaction, Mild, itching, 07/26/14) Home Medications Doxylamine Succinate 25 Mg Tablet, 50 MG PO HS, (Reported) TAKES 2 (25 MG) TABLETS Hydrocodone/Acetaminophen 1 Each Tablet, 1 TAB PO Q4H PRN for PAIN-BREAKTHROUGH Prescribed by: PEE SCHMITT on 01/09/21 1023 Ibuprofen 200 Mg Tablet, 800 MG PO BID PRN for PAIN, (Reported) Ketorolac Tromethamine 10 Mg Tablet, 10 MG PO Q6H Prescribed by: JOE STEWART on 02/04/21 0306 Naproxen 500 Mg Tablet, 500 MG PO BID PRN for PAIN-MODERATE TO SEVERE Prescribed by: LUZ RAZO on 12/28/17 1041 Permethrin 60 Gm Cream..g., 60 GM TP UD use as directed by the certified pharmacist assistant. Repeat in 14 days. Prescribed by: GEMINI NOVOA on 12/26/17 1249 Prednisone 20 Mg Tab, 40 MG PO DAILY Prescribed by: GEMINI NOVOA on 12/26/17 1249 Sulfamethoxazole/Trimethoprim 1 Each Tablet, 1 EACH PO BID Prescribed by: MARTÍN GALAN on 10/11/17 1030 Sulfamethoxazole/Trimethoprim 1 Each Tablet, 1 EACH PO BID Prescribed by: LUZ RAZO on 12/28/17 1041 Sulfamethoxazole/Trimethoprim 1 Each Tablet, 1 EACH PO BID Prescribed by: PEE SCHMITT on 01/09/21 1022 Sulfamethoxazole/Trimethoprim 1 Each Tablet, 2 EACH PO BID Prescribed by: JOE STEWART on 02/04/21 0306 Patient Home Medication List Home Medication List Reviewed: Yes Review of Systems Review of Systems Constitutional: see HPI; No chills, No fever EENTM: no symptoms reported Respiratory: No cough, No dyspnea on exertion Cardiovascular: No chest pain, No edema Gastrointestinal: abdominal pain (Lower left); No nausea, No vomiting Genitourinary: dysuria, pain Musculoskeletal: no symptoms reported, joint pain Skin: see HPI, change in color, lesions Psychiatric/Neurological: No Symptoms Reported All Other Systems Reviewed Negative Unless Noted: Yes Past Iwteacr-Umvprr-Glzion Hx Past Med/Social Hx: Reviewed Nursing Past Med/Soc Hx Patient Social History Alcohol Use: Denies Use Drug of Choice: DENIES Smoking Status: Former Smoker Type Used: Cigarettes 2nd Hand Smoke Exposure: No Recent Infectious Disease Expo: No Recent Hopitalizations: No Immunizations Up To Date Tetanus Booster (TDap): Unknown Date of Influenza Vaccine: May 24, 2014 Seasonal Allergies Seasonal Allergies: No Past Medical History Surgeries: Yes (SURGERY FOR URETERO-VESICULAR REFLUX AGE 11;[facility] 11/2009;C- SECTION X 1) Bladder Surgery, Section, Gallbladder, Hysterectomy, Oophorectomy, Tubal Ligation Respiratory: No Cardiac: Yes Hypertension Neurological: No 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 Disorders: Yes (CPP, MENORRHAGIA, CINIII) Female 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 Disorders: Menstrual Problems 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: Hysterectomy Sexually Transmitted Disease: Yes Genitourinary: Yes (URETERO-VESICULAR REFLUX SURGERY AGE 11) Kidney Stones, Neurogenic Bladder, UTI-Chronic, UTI (peds) Gastrointestinal: Yes Gastroesophageal Reflux, Irritable Bowel Musculoskeletal: Yes (compression fracture) Arthritis, Fibromyalgia, Chronic Back Pain, Fractures Endocrine: Yes Hypothyroidsim HEENT: No Cancer: Yes Cervical Psychosocial: Yes (MULTIDRUG OVER DOSE 2008) Sleep Difficulties, Anxiety, Suicide Attempts, Depression Integumentary: Yes (patient did have varicella zoster as a child.) Recent Skin Changes Blood Disorders: Yes (ANEMIA) Family Medical History Reviewed Nursing Family Hx No Pertinent Family Hx Physical Exam Vital Signs Vital Signs - First Documented 02/06/21 11:04 Temp 37.2 Pulse 96 Resp 19 B/P (MAP) 128/85 (99) O2 Delivery Room Air Capillary Refill : Less Than 3 Seconds Height, Weight, BMI Height: 5'1.00" Weight: 250lbs. 0.0oz. [id number]; 50.00 BMI Method:Stated General Appearance: WD/WN, Mild Distress, Obese HEENT: PERRL/EOMI, Pharynx Normal Neck: Non Tender, Supple Respiratory: Lungs Clear, Normal Breath Sounds Cardiovascular: Regular Rate, Rhythm, No Murmur Gastrointestinal: Soft, Tenderness (Left lower quadrant over erythematous and hardened area that is approximately 10 x 20 cm horizontally oriented with central ulcerative area of approximately 1 x 1 cm that has central core. Not currently draining any fluid.) Back: Normal Inspection, No CVA Tenderness, No Vertebral Tenderness Extremity: Normal Inspection, Normal Range of Motion, Non Tender Neurologic/Psychiatric: Alert, Oriented x3 Skin: Warm/Dry, Other (Lesion left lower abdomen as described above.) Focused Exam Lactate Level 02/06/21 12:27: Lactic Acid Level 0.85 Lactic Acid Level Laboratory Tests Test 02/06/21 12:27 Lactic Acid Level 0.85 MMOL/L (0.50-2.00) Progress/Results/Core Measures Suspected Sepsis Recent Fever Within 48 Hours: No Infection Criteria Present: None New/Unexplained Altered Menta: No Sepsis Screen: No Definite Risk SIRS Temperature: Pulse: 96 Respiratory Rate: 19 Laboratory Tests 02/06/21 12:27: White Blood Count 10.1 Blood Pressure 128 /85 Mean: 99 02/06/21 12:27: Lactic Acid Level 0.85 Laboratory Tests 02/06/21 12:27: Creatinine 1.00, Platelet Count 294, Total Bilirubin 0.5 Results/Orders Lab Results Laboratory Tests Test 02/06/21 12:27 02/06/21 12:41 Range/Units White Blood Count 10.1 4.3-11.0 10^3/uL Red Blood Count 4.44 3.80-5.11 10^6/uL Hemoglobin 12.3 11.5-16.0 g/dL Hematocrit 39 35-52 % Mean Corpuscular Volume 87 80-99 fL Mean Corpuscular Hemoglobin 28 25-34 pg Mean Corpuscular Hemoglobin Concent 32 32-36 g/dL Red Cell Distribution Width 15.5 H 10.0-14.5 % Platelet Count 294 130-400 10^3/uL Mean Platelet Volume 10.0 9.0-12.2 fL Immature Granulocyte % (Auto) 0 % Neutrophils (%) (Auto) 77 H 42-75 % Lymphocytes (%) (Auto) 12 12-44 % Monocytes (%) (Auto) 10 0-12 % Eosinophils (%) (Auto) 1 0-10 % Basophils (%) (Auto) 0 0-10 % Neutrophils # (Auto) 7.8 1.8-7.8 10^3/uL Lymphocytes # (Auto) 1.2 1.0-4.0 10^3/uL Monocytes # (Auto) 1.0 0.0-1.0 10^3/uL Eosinophils # (Auto) 0.1 0.0-0.3 10^3/uL Basophils # (Auto) 0.0 0.0-0.1 10^3/uL Immature Granulocyte # (Auto) 0.0 0.0-0.1 10^3/uL Sodium Level 138 135-145 MMOL/L Potassium Level 3.7 3.6-5.0 MMOL/L Chloride Level 108 H 98-107 MMOL/L Carbon Dioxide Level 20 L 21-32 MMOL/L Anion Gap 10 5-14 MMOL/L Blood Urea Nitrogen 14 7-18 MG/DL Creatinine 1.00 0.60-1.30 MG/DL Estimat Glomerular Filtration Rate > 60 BUN/Creatinine Ratio 14 Glucose Level 92 70-105 MG/DL Lactic Acid Level 0.85 0.50-2.00 MMOL/L Calcium Level 8.9 8.5-10.1 MG/DL Corrected Calcium 9.1 8.5-10.1 MG/DL Total Bilirubin 0.5 0.1-1.0 MG/DL Aspartate Amino Transf (AST/SGOT) 11 5-34 U/L Alanine Aminotransferase (ALT/SGPT) 12 0-55 U/L Alkaline Phosphatase 88 40-136 U/L C-Reactive Protein High Sensitivity 13.62 H 0.00-0.50 MG/DL Total Protein 7.1 6.4-8.2 GM/DL Albumin 3.8 3.2-4.5 GM/DL Urine Color YELLOW Urine Clarity CLEAR Urine pH 6.0 5-9 Urine Specific [place] >=1.030 1.016-1.022 Urine Protein 1+ H NEGATIVE Urine Glucose (UA) NEGATIVE NEGATIVE Urine Ketones NEGATIVE NEGATIVE Urine Nitrite NEGATIVE NEGATIVE Urine Bilirubin 1+ H NEGATIVE Urine Urobilinogen 1.0 < = 1.0 MG/DL Urine Leukocyte Esterase NEGATIVE NEGATIVE Urine RBC (Auto) TRACE-I NEGATIVE Urine RBC RARE /HPF Urine WBC 0-2 /HPF Urine Squamous Epithelial Cells 5-10 /HPF Urine Crystals PRESENT H /LPF Urine Calcium Oxalate Crystals MODERATE H /LPF Urine Amorphous Sediment MOD FREDY URATES H /LPF Urine Bacteria TRACE /HPF Urine Casts NONE /LPF Urine Mucus NEGATIVE /LPF Urine Yeast FEW H /HPF Urine Culture Indicated YES My Orders Orders - MARTÍN GALAN MD Cbc With Automated Diff (02/06/21 12:19) Comprehensive Metabolic Panel (02/06/21 12:19) Hs C Reactive Protein (02/06/21 12:19) Lactic Acid Analyzer (02/06/21 12:19) Blood Culture (02/06/21 12:19) Fentanyl Inj (Sublimaze Injection) (02/06/21 12:19) Ed Iv/Invasive Line Start (02/06/21 12:19) Ua Culture If Indicated (02/06/21 12:42) Ct Abdomen/Pelvis W (02/06/21 13:21) Iohexol Injection (Omnipaque 350 Mg/Ml 1 (02/06/21 13:30) Received Contrast (Hold Metformin- Contr (02/06/21 13:30) Sodium Chloride Flush (Catheter Flush Sy (02/06/21 13:30) Ns (Ivpb) (Sodium Chloride 0.9% Ivpb Bag (02/06/21 13:30) Urine Culture (02/06/21 12:41) Fluconazole Tablet (Ed Only) (Diflucan T (02/06/21 14:59) Fentanyl Inj (Sublimaze Injection) (02/06/21 15:15) Medications Given in ED Current Medications Medications Dose Ordered Sig/Rubi Route Start Time Stop Time Status Last Admin Dose Admin Iohexol 100 ml ONCE ONCE IV 02/06/21 13:30 02/06/21 13:34 DC 02/06/21 14:01 100 ML Sodium Chloride 10 ml NEEDED PRN IV 02/06/21 13:30 02/06/21 14:01 10 ML Sodium Chloride 100 ml ONCE ONCE IV 02/06/21 13:30 02/06/21 13:34 DC 02/06/21 14:01 80 ML Vital Signs/I&O 02/06/21 11:04 Temp 37.2 Pulse 96 Resp 19 B/P (MAP) 128/85 (99) O2 Delivery Room Air Capillary Refill : Less Than 3 Seconds Blood Pressure Mean: 99 Progress Note : Progress Note Seen and evaluated. We will get IV and labs as well as blood culture and lactic acid. Area of concern is quite large. Fentanyl 50 mcg IV. We will get UA given her concerns for urinary tract infection. Monitor patient. 1320: I did discuss the case with Dr. Obrien. CRP is quite elevated although white count is normal. I do have concerns about deep abscess versus cellulitis. We discussed imaging. We will go ahead and get CT of this area to determine extent. Monitor patient. 1505: I discussed the case with Dr. Wei who accepts patient for admission, inpatient status. Patient has yeast infection and it is noted in the urine. Diflucan 150 mg p.o. ordered now. We will also initiate cefepime 1 g IV now and fentanyl [address] Wei would like the patient on Zyvox as she has vancomycin allergy and is requesting cefepime. I agree. I did discuss the case with Dr. Obrien and he accepts patient in consult. Patient agrees to plan. Diagnostic Imaging Diagonstic Imaging: CT Plain Films/CT/US/NM/MRI: abdomen, pelvis Comments [facility]. [place], [place] NAME: IRINEO HINES Eleazar MED REC#: [id number] PT STATUS: REG ER : 1975 PHYSICIAN: MARTÍN GALAN MD ADMIT DATE: 02/06/21/ER Draft Date of Exam:02/06/21 CT ABDOMEN/PELVIS W EXAMINATION: CT abdomen and pelvis with intravenous contrast. TECHNIQUE: Multiple contiguous axial images were obtained through the abdomen and pelvis after the uneventful administration of intravenous contrast. All CT scans use one or more of the following dose optimizing techniques: automated exposure control, MA and/or KvP adjustment based on patient size and exam type or iterative reconstruction. HISTORY: Follow-up cellulitis in the left lower quadrant. Concern for abscess development. COMPARISON: 02/04/2021. FINDINGS: The heart is unremarkable. The included lung bases are clear. Stable cyst or hemangioma in the left hepatic lobe. The gallbladder is surgically absent. The portal vein is patent. Stable splenomegaly. No focal splenic lesions. The pancreas, adrenal glands, and kidneys have a normal appearance. There is no pathologically enlarged mesenteric or retroperitoneal adenopathy. The bowel loops are nondilated. There is no free fluid or free air. No acute osseous abnormalities. Mild increase in cellulitis overlying the left lower quadrant with associated skin thickening. No abscess. The urinary bladder is nondistended. There is no free air, loculated collection, or adenopathy in the pelvis. IMPRESSION: 1. Mild increase in cellulitis overlying the left lower quadrant. No abscess formation. 2. Unchanged splenomegaly. No focal splenic lesions. Dictated on workstation # [id number] Dict: 02/06/21 1441 Trans: 02/06/21 1449 [id number] Interpreted by: GRACIE BEY DO Electronically signed by: Reviewed: Reviewed by Ms Departure Communication (Admissions) Time/Spoke to Admitting Phy: 15:03 Time/Spoke to Consulting Phy: 15:05 Impression Primary Impression: Cellulitis of left abdominal wall Additional Impression: Yeast vaginitis Disposition: ADMITTED INPATIENT Condition: Stable Admissions Decision to Admit Reason: Admit from ER (General) Decision to Admit/Date: Feb 06, 2021 Time/Decision to Admit Time: 15:03 Departure-Patient Inst. Referrals: [facility] [place]) Primary Care Physician MARTÍN GALAN MD Feb 06, 2021 13:04
[2021-02-06 13:15] LABS: BILIRUBIN,URINE 1+ (NEGATIVE); CLARITY,URINE CLEAR; COLOR,URINE YELLOW; GLUCOSE, URINE (UA) NEGATIVE (NEGATIVE); KETONES,URINE NEGATIVE (NEGATIVE); LEUKOCYTE ESTERASE ,URINE NEGATIVE (NEGATIVE); NITRITE,URINE NEGATIVE (NEGATIVE); PROTEIN,URINE 1+ (NEGATIVE)
[2021-02-06] MEDS ORDERED: CATHETER FLUSH 10 ML SYR IV PRN ×2 (13:30→16:45)
[2021-02-06] MEDS ORDERED: IOHEXOL 350 MG/ML 100 ML (OMNIPAQUE 350) VIAL IV ONE (13:30)
[2021-02-06] MEDS ORDERED: HOLD METFORMIN - RECEIVED CONTRAST 20 ML VIAL IV SCH (13:30)
[2021-02-06] MEDS ORDERED: NS 100 ML (IVPB) BAG IV ONE (13:30)
[2021-02-06 13:36] LABS: BACTERIA,URINE TRACE /HPF; RBC,URINE RARE /HPF; WBC,URINE 0-2 /HPF
[2021-02-06 13:37] LABS: AMORPHOUS SEDIMENT,UR MOD AMOR URATES /LPF; CALCIUM OXALATE CRYSTALS,UR MODERATE /LPF; YEAST,URINE FEW /HPF
--- NOTE | 2021-02-06 14:49 | Diagnostic Imaging Report ---
EXAMINATION: CT abdomen and pelvis with intravenous contrast. TECHNIQUE: Multiple contiguous axial images were obtained through the abdomen and pelvis after the uneventful administration of intravenous contrast. All CT scans use one or more of the following dose optimizing techniques: automated exposure control, MA and/or KvP adjustment based on patient size and exam type or iterative reconstruction. HISTORY: Follow-up cellulitis in the left lower quadrant. Concern for abscess development. COMPARISON: 02/04/2021. FINDINGS: The heart is unremarkable. The included lung bases are clear. Stable cyst or hemangioma in the left hepatic lobe. The gallbladder is surgically absent. The portal vein is patent. Stable splenomegaly. No focal splenic lesions. The pancreas, adrenal glands, and kidneys have a normal appearance. There is no pathologically enlarged mesenteric or retroperitoneal adenopathy. The bowel loops are nondilated. There is no free fluid or free air. No acute osseous abnormalities. Mild increase in cellulitis overlying the left lower quadrant with associated skin thickening. No abscess. The urinary bladder is nondistended. There is no free air, loculated collection, or adenopathy in the pelvis. IMPRESSION: 1. Mild increase in cellulitis overlying the left lower quadrant. No abscess formation. 2. Unchanged splenomegaly. No focal splenic lesions. Dictated by: Dictated on workstation # [id number]
[2021-02-06] MEDS ORDERED: FLUCONAZOLE 150 MG TABLET (ED ONLY) PO STA (14:59)
[2021-02-06] MEDS ORDERED: CEFEPIME INJECTION 2,000 MG in WATER (STERILE) FOR INJECTION 20 ML IV ONE (15:30)
--- NOTE | 2021-02-06 16:43 | History & Physical-Hospitalist ---
History of Present Illness HPI/Chief Complaint CC: Panniculitis failed PO abx HPI This is a 45yoWF who presents to the ER with severe panniculitis failed PO abx in need of IV abx. She has itching with a lot of pain meds and abx so the selection was made for IV abx and supportive care. Currently she reports the pain is improved after Fentanyl. Never had this issue before. Source: patient Exam Limitations: no limitations Date Seen 02/06/21 Time Seen by a Provider: 17:00 Attending Physician Corrine Wei DO [facility] [place] Referring Physician Date of Admission Feb 06, 2021 at 15:12 Home Medications & Allergies Home Medications Reviewed patient Home Medication Reconciliation performed by pharmacy medication reconciliations aircraft avionics technician and/or nursing. Patients Allergies have been reviewed. Allergies Allergies Coded Allergies Penicillins (Unverified Allergy, Mild, 12/07/08) codeine (Verified Allergy, Unknown, 01/21/14) vancomycin (Verified Allergy, Unknown, Itching, 02/06/21) morphine (Verified Adverse Reaction, Mild, VOMITING, 09/28/12) tramadol (Unverified Adverse Reaction, Mild, itching, 07/26/14) Past Kuokbng-Gfshxl-Qfpgme Hx Patient Social History Marrital Status: single Employed/Student: employed Tobacco Use?: No Smoking Status: Former Smoker Alcohol Use?: No Immunizations Up To Date Date of Influenza Vaccine: May 24, 2014 Seasonal Allergies Seasonal Allergies: No Current Status Primary Language: Mongolian Past Medical History Surgeries: Bladder Surgery, Section, Gallbladder, Hysterectomy, Oophorectomy, Tubal Ligation Hypertension 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 Sexually Transmitted Disease: Yes Kidney Stones, Neurogenic Bladder, UTI-Chronic, UTI (peds) Gastroesophageal Reflux, Irritable Bowel Arthritis, Fibromyalgia, Chronic Back Pain, Fractures Hypothyroidsim Cervical Sleep Difficulties, Anxiety, Suicide Attempts, Depression Recent Skin Changes Blood Disorders: Yes (ANEMIA) Family Medical History Reviewed Nursing Family Hx No Pertinent Family Hx Review of Systems Constitutional: see HPI, fever, malaise, weakness Skin: rash Physical Exam Physical Exam Vital Signs Vital Signs - First Documented 02/06/21 02/06/21 11:04 16:10 Temp 37.2 Pulse 96 Resp 19 B/P (MAP) 128/85 (99) Pulse Ox 96 O2 Delivery Room Air Capillary Refill : Less Than 3 Seconds Height, Weight, BMI Height: 5'1.00" Weight: 250lbs. 0.0oz. [id number]; 50.00 BMI Method:Stated General Appearance: No Apparent Distress, Anxious, Obese Eyes: Right Eye Normal Inspection, Right Eye PERRL HEENT: PERRL/EOMI, Normal ENT Inspection, Pharynx Normal, Moist Mucous Membranes Neck: Full Range of Motion, Normal Inspection, Non Tender Respiratory: Chest Non Tender, Lungs Clear, Normal Breath Sounds, No Accessory Muscle Use, No Respiratory Distress Cardiovascular: Regular Rate, Rhythm, No Edema, No Gallop, No JVD, No Murmur, Normal Peripheral Pulses Gastrointestinal: Normal Bowel Sounds, No Organomegaly, No Pulsatile Mass, Non Tender, Soft Back: Normal Inspection, No CVA Tenderness, No Vertebral Tenderness Extremity: Normal Capillary Refill, Normal Inspection, Normal Range of Motion, Non Tender, No Calf Tenderness, No Pedal Edema Neurologic/Psychiatric: Alert, Oriented x3, No Motor/Sensory Deficits, Normal Mood/Affect Skin: Normal Color, Warm/Dry, Rash (left lower abdomen with severe erythema and hot to touch and ttp) Lymphatic: No Adenopathy Results Results/Procedures Labs Laboratory Tests 02/06/21 12:27 Patient resulted labs reviewed. Assessment/Plan Admission Diagnosis Assessment: Severe panniculitis failed PO abx Hypothyroidism Obesity OA Plan: IV abx Monitor closely Pain control Admission Status: Inpatient Order (span 2 midnights) Reason for Inpatient Admission: pannculitis Diagnosis/Problems Diagnosis/Problems (1) Cellulitis of left abdominal wall Status: Acute (2) Yeast vaginitis Status: Acute CORRINE WEI DO Feb 06, 2021 16:43
[2021-02-06 16:45] VITALS: BP 141/92
[2021-02-06] MEDS ORDERED: ONDANSETRON 4 MG/2 ML (SDV) Z0FRAN IVP PRN (16:45)
[2021-02-06] MEDS: fentaNYL INJ 100 MCG/2 ML AMP IVP PRN ×2 (16:51→20:53)
[2021-02-06] MEDS ORDERED: HYDROcodone/APAP 7.5 MG/325 MG (LORTAB, LORCET PLUS) TABLET PO PRN (18:00)
--- NOTE | 2021-02-06 18:11 | CONSULTATION REPORT ---
DATE OF SERVICE: 02/06/2021 ATTENDING PRIMARY CARE PHYSICIAN: [facility]. ADMITTING PHYSICIAN: Dr. Wei. HISTORY OF PRESENT ILLNESS: The patient is a 45-year-old female who presented to the Emergency Department with pain and swelling along the left lateral abdominal wall along a skin pannus. She reports that she was bitten by a tick that she had seen and removed 2 days ago. There was immediate redness and swelling; however, initially not severe. Over the past two days, the redness and swelling has increased dramatically and caused a significant amount of pain. Upon examination, there is redness, erythema as well as induration. A CT scan was performed, which did show soft tissue swelling; however, no signs of any abscess. She does not report any systemic symptoms of fever nor chills at home. Pain is her chief complaint. PAST MEDICAL HISTORY: Previous cellulitis and skin infections. Hypertension, menorrhagia, ureteropelvic junction, chronic urinary tract infection, neurogenic bladder, gastroesophageal reflux disease, irritable bowel syndrome, fibromyalgia, arthritis, hypothyroid. PAST SURGICAL HISTORY: Bladder surgery, section, laparoscopic cholecystectomy, partial hysterectomy, tubal ligation. ALLERGIES: PENICILLIN, CODEINE, VANCOMYCIN, MORPHINE, TRAMADOL. MEDICATIONS: Doxylamine 25 mg daily, hydrocodone p.r.n., ketorolac 10 mg q.6 hours, permethrin 60 mg cream daily, prednisone 20 mg daily, Bactrim DS b.i.d. SOCIAL HISTORY: Previous smoker. She states that she quit 2 months ago, 25 pack years. Negative alcohol. FAMILY HISTORY: Noncontributory. VITAL SIGNS: Temperature 37.2, blood pressure 128/85, pulse 96, respirations 18, pulse ox 99% on room air. REVIEW OF SYSTEMS: Well-nourished female currently in no acute distress. She is not experiencing any shortness of breath or difficulty breathing. No chest pain, palpitations, diaphoresis. No nausea, vomiting, no diarrhea or constipation. No fever, chills, no recent inadvertent weight loss. All other review of systems negative. PHYSICAL EXAMINATION: CHEST: A few scattered wheezes bilaterally. HEART: Regular, no murmurs. EXTREMITIES: No lower extremity edema, negative Homans sign. HEENT: No scleral icterus. NECK: No cervical lymphadenopathy. ABDOMEN: Soft, nondistended. SKIN: Along the left lateral abdominal pannus is redness, erythema and induration, which is painful to palpation; however, there is no fluctuance to indicate any abscess, which was confirmed by CT scan as well. SKIN: Warm, dry. LABORATORY DATA: WBC 10.1, hemoglobin 12.3, hematocrit 39, platelets 294. BUN 14, creatinine 1.0. ASSESSMENT AND PLAN: A 45-year-old female with cellulitis of the left lateral abdominal wall along the skin pannus. RECOMMENDATIONS: Conservative therapy with IV antibiotics and close monitoring for resolution versus the development of an abscess. As of now, we will continue with IV antibiotics as well as pain control. Job ID: [id number] DocumentID: [id number] Dictated Date: 02/06/2021 17:52:59 Manufacturing Laborer Date: 02/06/2021 18:10:22 Dictated By: KENAN HERRON MD
[2021-02-06 20:25] VITALS: BP 137/85
[2021-02-06] MEDS: ENOXAPARIN 60 MG/0.6 ML (LOVENOX) SYR SC SCH (20:52)
[2021-02-06] MEDS: LINEZOLID 600MG/300ML IVPB (PRE-MIX) IV SCH (20:52)
[2021-02-07] VITALS (7 sets, daily range): BP systolic 113–144; BP diastolic 69–91
[2021-02-07] MEDS: fentaNYL INJ 100 MCG/2 ML AMP IVP PRN ×4 (00:07→08:33)
[2021-02-07] MEDS: CATHETER FLUSH 10 ML SYR IV SCH ×4 (00:09→22:17)
[2021-02-07] MEDS: CEFEPIME 2,000 MG/SWFI 20 ML IV PUSH IV SCH ×4 (03:24→16:36)
--- NOTE | 2021-02-07 05:52 | Progress Note - Hospitalist ---
Subjective HPI/CC On Admission Date Seen by Provider: Feb 07, 2021 Time Seen by Provider: 11:30 CC: Panniculitis failed PO abx HPI This is a 45yoWF who presents to the ER with severe panniculitis failed PO abx in need of IV abx. She has itching with a lot of pain meds and abx so the selection was made for IV abx and supportive care. Currently she reports the pain is improved after Fentanyl. Never had this issue before. Subjective/Events-last exam Patient doing a lot better Cellulitis is now started draining and that has relieved a lot of pressure Denies any new issue Check meds and labs Restarted home meds Review of Systems General: Fatigue, Malaise Focused Exam Lactate Level 02/06/21 12:27: Lactic Acid Level 0.85 Objective Exam Vital Signs Vital Signs Date Time Temp Pulse Resp B/P (MAP) Pulse Ox O2 Delivery O2 Flow Rate FiO2 02/07/21 16:30 36.3 84 20 144/91 (108) 96 Room Air Capillary Refill : Less Than 3 Seconds General Appearance: No Apparent Distress, WD/WN, Chronically ill Respiratory: Lungs Clear Cardiovascular: Regular Rate, Rhythm Neurologic/Psychiatric: Alert, Oriented x3 Results/Procedures Lab Laboratory Tests 02/07/21 05:54 Patient resulted labs reviewed. Assessment/Plan Assessment and Plan Assess & Plan/Chief Complaint Assessment: Severe panniculitis failed PO abx Hypothyroidism Obesity OA Plan: IV abx Monitor closely Pain control 02/07/2021: Continue IV antibiotics Abscess is draining Diagnosis/Problems Diagnosis/Problems (1) Cellulitis of left abdominal wall Status: Acute (2) Yeast vaginitis Status: Acute ETHAN MENDIETA DO Feb 07, 2021 05:52
[2021-02-07 06:16] LABS: BASOPHILS % (AUTO) 0 % (0-10); EOSINOPHILS # (AUTO) 0.2 10^3/uL (0.0-0.3); EOSINOPHILS % (AUTO) 2 % (0-10); HEMATOCRIT 36 % (35-52); HEMOGLOBIN 11.2 g/dL (11.5-16.0); LYMPHOCYTES # (AUTO) 1.5 10^3/uL (1.0-4.0); LYMPHOCYTES % (AUTO) 15 % (12-44); MEAN CORPUSCULAR HEMOGLOBIN 27 pg (25-34); MEAN CORPUSCULAR HGB CONC 31 g/dL (32-36); MEAN CORPUSCULAR VOLUME 87 fL (80-99); MONOCYTES # (AUTO) 1.1 10^3/uL (0.0-1.0); MONOCYTES % (AUTO) 11 % (0-12); NEUTROPHILS # (AUTO) 7.5 10^3/uL (1.8-7.8); NEUTROPHILS % (AUTO) 72 % (42-75); PLATELET COUNT 286 10^3/uL (130-400); WHITE BLOOD COUNT 10.4 10^3/uL (4.3-11.0)
[2021-02-07 06:38] LABS: ALBUMIN 3.5 GM/DL (3.2-4.5); CHLORIDE 108 MMOL/L (98-107); POTASSIUM 3.5 MMOL/L (3.6-5.0); SODIUM 136 MMOL/L (135-145)
[2021-02-07 06:39] LABS: CALCIUM 8.5 MG/DL (8.5-10.1)
[2021-02-07 06:40] LABS: GLUCOSE 96 MG/DL (70-105); TOTAL PROTEIN 6.5 GM/DL (6.4-8.2)
[2021-02-07 06:41] LABS: CARBON DIOXIDE 17 MMOL/L (21-32)
[2021-02-07 06:42] LABS: BILIRUBIN,TOTAL 0.6 MG/DL (0.1-1.0)
[2021-02-07 06:44] LABS: ALKALINE PHOSPHATASE 81 U/L (40-136); CREATININE SERUM 0.78 MG/DL (0.60-1.30); GFR ESTIMATED > 60
[2021-02-07 06:45] LABS: BUN/CREATININE RATIO 10
[2021-02-07 06:47] LABS: ALANINE AMINOTRANSFERASE 11 U/L (0-55)
[2021-02-07] MEDS: ENOXAPARIN 60 MG/0.6 ML (LOVENOX) SYR SC SCH ×2 (08:34→20:43)
[2021-02-07] MEDS: FLUCONAZOLE 100 MG/50 ML IVPB IV SCH ×2 (08:34)
[2021-02-07] MEDS: LINEZOLID 600MG/300ML IVPB (PRE-MIX) IV SCH ×2 (08:34→20:43)
[2021-02-07] MEDS: oxyCODONE/APAP 5/325MG (PERCOCET 5) TABLET PO PRN ×4 (09:48→23:02)
[2021-02-07] MEDS ORDERED: KETO10TA PO (10:15)
[2021-02-07] MEDS ORDERED: SULF1TAB35 PO (10:15)
[2021-02-07] MEDS ORDERED: ACET-2267 PO (10:15)
[2021-02-07] MEDS ORDERED: IBUP-2473 PO (10:15)
--- NOTE | 2021-02-07 18:08 | Progress Note ---
Subjective Date Seen by a Provider: Feb 07, 2021 Time Seen by a Provider: 18:00 Subjective/Events-last exam doing ok. wound spontaneously opened with mild purulent drainage. no fe jose luis/chills. redness/erythema improved. Focused Exam Lactate Level 02/06/21 12:27: Lactic Acid Level 0.85 Objective Exam Vital Signs Date Time Temp Pulse Resp B/P (MAP) Pulse Ox O2 Delivery O2 Flow Rate FiO2 02/07/21 16:30 36.3 84 20 144/91 (108) 96 Room Air 02/07/21 11:55 36.2 78 20 132/88 (103) 98 Room Air 02/07/21 09:00 Room Air 02/07/21 08:10 36.5 80 20 130/88 (102) 100 Room Air 02/07/21 04:05 36.2 76 18 113/69 (84) 96 Room Air 02/07/21 00:00 36.0 80 18 115/78 (90) 98 Room Air 02/06/21 20:25 36.2 86 20 137/85 (102) 98 Room Air 02/06/21 20:00 Nasal Cannula I & O 02/07/21 07:00 Intake Total 1070 ml Balance 1070 ml Capillary Refill : Less Than 3 Seconds General Appearance: No Apparent Distress HEENT: PERRL/EOMI Neck: Full Range of Motion Respiratory: Chest Non Tender Cardiovascular: Regular Rate, Rhythm Gastrointestinal: normal bowel sounds, soft, tenderness Extremity: Normal Capillary Refill Neurologic/Psychiatric: Alert, Oriented x3 Skin: Normal Color, Other (redness/erythema and purulent drainage left abd pannus) Lymphatic: No Adenopathy Results Lab Laboratory Tests 02/07/21 05:54: White Blood Count 10.4, Red Blood Count 4.14, Hemoglobin 11.2L, Hematocrit 36, Mean Corpuscular Volume 87, Mean Corpuscular Hemoglobin 27, Mean Corpuscular Hemoglobin Concent 31L, Red Cell Distribution Width 15.5H, Platelet Count 286, Mean Platelet Volume 10.0, Immature Granulocyte % (Auto) 1, Neutrophils (%) (Auto) 72, Lymphocytes (%) (Auto) 15, Monocytes (%) (Auto) 11, Eosinophils (%) (Auto) 2, Basophils (%) (Auto) 0, Neutrophils # (Auto) 7.5, Lymphocytes # (Auto) 1.5, Monocytes # (Auto) 1.1H, Eosinophils # (Auto) 0.2, Basophils # (Auto) 0.0, Immature Granulocyte # (Auto) 0.1, Sodium Level 136, Potassium Level 3.5L, Chloride Level 108H, Carbon Dioxide Level 17L, Anion Gap 11, Blood Urea Nitrogen 8, Creatinine 0.78, Estimat Glomerular Filtration Rate > 60, BUN/Creatinine Ratio 10, Glucose Level 96, Calcium Level 8.5, Corrected Calcium 8.9, Total Bilirubin 0.6, Aspartate Amino Transf (AST/SGOT) 8, Alanine Aminotransferase (ALT/SGPT) 11, Alkaline Phosphatase 81, Total Protein 6.5, Albumin 3.5 Microbiology 02/06/21 Urine Culture - Preliminary, Resulted Streptococcus viridans 02/06/21 Blood Culture - Preliminary, Resulted No growth Assessment/Plan Assessment/Plan Assess & Plan/Chief Complaint abdominal wall cellulitis. cont abx. gauze BID to open portion wound. KENAN HERRON MD Feb 07, 2021 18:08
[2021-02-08 04:00] VITALS: BP 128/82
[2021-02-08] MEDS: CEFEPIME 2,000 MG/SWFI 20 ML IV PUSH IV SCH ×2 (05:01)
[2021-02-08] MEDS: oxyCODONE/APAP 5/325MG (PERCOCET 5) TABLET PO PRN ×2 (05:06→09:20)
[2021-02-08] MEDS: CATHETER FLUSH 10 ML SYR IV SCH (05:30)
--- NOTE | 2021-02-08 06:02 | Progress Note - Hospitalist ---
Subjective HPI/CC On Admission Date Seen by Provider: Feb 08, 2021 CC: Panniculitis failed PO abx HPI This is a 45yoWF who presents to the ER with severe panniculitis failed PO abx in need of IV abx. She has itching with a lot of pain meds and abx so the selection was made for IV abx and supportive care. Currently she reports the pain is improved after Fentanyl. Never had this issue before. Focused Exam Lactate Level 02/06/21 12:27: Lactic Acid Level 0.85 Objective Exam Vital Signs Vital Signs Date Time Temp Pulse Resp B/P (MAP) Pulse Ox O2 Delivery O2 Flow Rate FiO2 02/08/21 12:05 35.5 71 20 123/82 (96) 99 Room Air Capillary Refill : Less Than 3 Seconds Results/Procedures Lab Laboratory Tests 02/08/21 06:30 Patient resulted labs reviewed. Assessment/Plan Assessment and Plan Assess & Plan/Chief Complaint Assessment: Severe panniculitis failed PO abx Hypothyroidism Obesity OA Plan: IV abx Monitor closely Pain control 02/07/2021: Continue IV antibiotics Abscess is draining Diagnosis/Problems Diagnosis/Problems (1) Cellulitis of left abdominal wall Status: Acute (2) Yeast vaginitis Status: Acute ETHAN MENDIETA DO Feb 08, 2021 06:02
[2021-02-08 06:38] LABS: BASOPHILS # (AUTO) 0.1 10^3/uL (0.0-0.1); BASOPHILS % (AUTO) 1 % (0-10); EOSINOPHILS # (AUTO) 0.4 10^3/uL (0.0-0.3); EOSINOPHILS % (AUTO) 5 % (0-10); HEMATOCRIT 41 % (35-52); HEMOGLOBIN 12.2 g/dL (11.5-16.0); LYMPHOCYTES # (AUTO) 1.4 10^3/uL (1.0-4.0); LYMPHOCYTES % (AUTO) 16 % (12-44); MEAN CORPUSCULAR HEMOGLOBIN 27 pg (25-34); MEAN CORPUSCULAR HGB CONC 30 g/dL (32-36); MEAN CORPUSCULAR VOLUME 91 fL (80-99); MEAN PLATELET VOLUME 9.9 fL (9.0-12.2); MONOCYTES # (AUTO) 0.8 10^3/uL (0.0-1.0); MONOCYTES % (AUTO) 9 % (0-12); NEUTROPHILS # (AUTO) 6.1 10^3/uL (1.8-7.8); NEUTROPHILS % (AUTO) 69 % (42-75); PLATELET COUNT 290 10^3/uL (130-400); WHITE BLOOD COUNT 8.9 10^3/uL (4.3-11.0)
[2021-02-08 07:04] LABS: ALBUMIN 3.4 GM/DL (3.2-4.5); CHLORIDE 109 MMOL/L (98-107); POTASSIUM 4.3 MMOL/L (3.6-5.0); SODIUM 136 MMOL/L (135-145)
[2021-02-08 07:06] LABS: CALCIUM 8.6 MG/DL (8.5-10.1)
[2021-02-08 07:07] LABS: GLUCOSE 103 MG/DL (70-105); TOTAL PROTEIN 6.6 GM/DL (6.4-8.2)
[2021-02-08 07:08] LABS: CARBON DIOXIDE 18 MMOL/L (21-32)
[2021-02-08 07:09] LABS: BILIRUBIN,TOTAL 0.4 MG/DL (0.1-1.0)
[2021-02-08 07:10] LABS: ALKALINE PHOSPHATASE 86 U/L (40-136); CREATININE SERUM 0.76 MG/DL (0.60-1.30); GFR ESTIMATED > 60
[2021-02-08 07:11] LABS: BUN/CREATININE RATIO 9
[2021-02-08 07:13] LABS: ALANINE AMINOTRANSFERASE 19 U/L (0-55)
[2021-02-08 07:47] VITALS: BP 133/84
[2021-02-08] MEDS: FLUCONAZOLE 100 MG/50 ML IVPB IV SCH ×2 (08:28)
[2021-02-08] MEDS: ENOXAPARIN 60 MG/0.6 ML (LOVENOX) SYR SC SCH (08:29)
[2021-02-08] MEDS: LINEZOLID 600MG/300ML IVPB (PRE-MIX) IV SCH (09:20)
[2021-02-08 12:05] VITALS: BP 123/82
[2021-02-08] MEDS ORDERED: OXYC1TAB87 PO (12:20)
[2021-02-08] MEDS ORDERED: LINE600T12 PO (12:20)
[2021-02-08] MEDS ORDERED: FLUC100T PO (12:20)
--- NOTE | 2021-02-08 12:23 | Discharge Summary ---
Discharge Summary Hospital Course Problems/Dx: (1) Cellulitis of left abdominal wall Status: Acute (2) Yeast vaginitis Status: Acute Hospital Course Date of Admission: Feb 06, 2021 at 15:12 Admission Diagnosis : Family Physician/Provider: [place] Date of Discharge: 02/08/21 Discharge Diagnosis: Abdominal wall cellulitis with abscess and spontaneous drainage Hospital Course: Short course after placed on IV antibiotics and pain control. Dr. Obrien was consulted. No cellulitis on CT scan but it did start draining and relieve the pressure and improved patient status patient was deemed stable for discharge on Zyvox. Labs and Pending Lab Test: Laboratory Tests 02/08/21 06:30: White Blood Count 8.9, Red Blood Count 4.50, Hemoglobin 12.2, Hematocrit 41, Mean Corpuscular Volume 91, Mean Corpuscular Hemoglobin 27, Mean Corpuscular Hemoglobin Concent 30L, Red Cell Distribution Width 15.5H, Platelet Count 290, Mean Platelet Volume 9.9, Immature Granulocyte % (Auto) 1, Neutrophils (%) (Auto) 69, Lymphocytes (%) (Auto) 16, Monocytes (%) (Auto) 9, Eosinophils (%) (Auto) 5, Basophils (%) (Auto) 1, Neutrophils # (Auto) 6.1, Lymphocytes # (Auto) 1.4, Monocytes # (Auto) 0.8, Eosinophils # (Auto) 0.4H, Basophils # (Auto) 0.1, Immature Granulocyte # (Auto) 0.1, Sodium Level 136, Potassium Level 4.3, Chloride Level 109H, Carbon Dioxide Level 18L, Anion Gap 9, Blood Urea Nitrogen 7, Creatinine 0.76, Estimat Glomerular Filtration Rate > 60, BUN/Creatinine Ratio 9, Glucose Level 103, Calcium Level 8.6, Corrected Calcium 9.1, Total Bilirubin 0.4, Aspartate Amino Transf (AST/SGOT) 19, Alanine Aminotransferase (ALT/SGPT) 19, Alkaline Phosphatase 86, Total Protein 6.6, Albumin 3.4 Microbiology 02/06/21 Urine Culture - Preliminary, Resulted Streptococcus viridans 02/06/21 Blood Culture - Preliminary, Resulted No growth Home Meds Active Zyvox (Linezolid) 600 Mg Tablet 600 Mg PO BID Diflucan (Fluconazole) 100 Mg Tablet 100 Mg PO DAILY Percocet 5-325 mg Tablet (Oxycodone HCl/Acetaminophen) 1 Each Tablet 1 Tab PO Q4H PRN Reported Ibuprofen 200 Mg Tablet 400-600 Mg PO Q8H PRN Tylenol Extra Strength (Acetaminophen) 500 Mg Tablet 1,000 Mg PO Q8H PRN Ketorolac Tromethamine 10 Mg Tablet 10 Mg PO Q6H PRN Bactrim Ds Tablet (Sulfamethoxazole/Trimethoprim) 1 Each Tablet 2 Ea PO BID FILLED 02-04-2021 #40/10 DAY SUPPLY Assessment/Pt Instructions [facility] to establish care Discharge Planning: <30 minutes discharge planning Discharge Instructions Discharge Diet: No Restrictions Activity as Tolerated: Yes Discharge Physical Examination Vital Signs Vital Signs Date Time Temp Pulse Resp B/P (MAP) Pulse Ox O2 Delivery O2 Flow Rate FiO2 02/08/21 12:05 35.5 71 20 123/82 (96) 99 Room Air General Appearance: No Apparent Distress, WD/WN, Chronically ill Skin: Rash (Improved left abdominal wall abscess and cellulitis) Allergies: Coded Allergies: Penicillins (Unverified Allergy, Mild, 12/07/08) codeine (Verified Allergy, Unknown, 01/21/14) vancomycin (Verified Allergy, Unknown, Itching, 02/06/21) morphine (Verified Adverse Reaction, Mild, VOMITING, 09/28/12) tramadol (Unverified Adverse Reaction, Mild, itching, 07/26/14) Discharge Summary Date of Admission Feb 06, 2021 at 15:12 Date of Discharge Discharge Date: Feb 08, 2021 Admission Diagnosis Assessment: Severe panniculitis failed PO abx Hypothyroidism Obesity OA Plan: IV abx Monitor closely Pain control Discharge Diagnosis Assessment: Severe panniculitis failed PO abx Hypothyroidism Obesity OA Plan: IV abx Monitor closely Pain control 02/07/2021: Continue IV antibiotics Abscess is draining (1) Cellulitis of left abdominal wall Status: Acute (2) Yeast vaginitis Status: Acute ETHAN MENDIETA DO Feb 08, 2021 12:23
[2021-02-09] MEDS ORDERED: OXC5T PO (14:48)
[2021-02-09] MEDS ORDERED: FLUC100T PO (14:48)
[2021-02-09] MEDS ORDERED: LINE600T12 PO (14:48)
== END 2021-02-08 13:10 | disposition home or self-care (01) | DRG 603 ==
LOC: EDUNIT# 10:51 → ER 10:54 → 4TH 15:12
PROVIDERS: ADMIT Internal Medicine; ATTEND Internal Medicine
DX: L03.311 Cellulitis of abdominal wall (principal); Z68.43 Body mass index [BMI] 50.0-59.9, adult; M79.3 Panniculitis, unspecified; B37.3 Candidiasis of vulva and vagina; L02.211 Cutaneous abscess of abdominal wall; I10 Essential (primary) hypertension; K21.9 Gastro-esophageal reflux disease without esophagitis; K58.9 Irritable bowel syndrome, unspecified; E66.9 Obesity, unspecified; M19.90 Unspecified osteoarthritis, unspecified site; M79.7 Fibromyalgia; G89.29 Other chronic pain; M54.9 Dorsalgia, unspecified; E03.9 Hypothyroidism, unspecified; F41.9 Anxiety disorder, unspecified; F32.9 Major depressive disorder, single episode, unspecified; Z88.0 Allergy status to penicillin; Z88.1 Allergy status to other antibiotic agents
CPT/HCPCS: 36415; 74177; 80053; 81000; 83605; 85025; 86141; 87040; 87088

== ENCOUNTER 2021-02-16 15:34 | Emergency (ER) | payer SELFPAY ==
[~2021-02-16] VITALS: Ht 154.9 cm; Wt 118.0 kg
[~2021-02-16 15:34] MED LIST changes: +ACET-2267 PO; +FLUC100T PO; +LINE600T12 PO; +OXC5T PO; +OXYC1TAB87 PO
--- NOTE | 2021-02-16 16:20 | ED Integumentary General ---
General Chief Complaint: Skin/Wound Problems Stated Complaint: ABD WOUND BLEEDING Nursing Triage Note: Patient reports wound to lower left abdomen was hit yesterday by patient and started randomly bleeding today Source: patient Exam Limitations: no limitations (LUZ RAZO APRN) History of Present Illness Date Seen by Provider: Feb 16, 2021 Time Seen by Provider: 16:18 Initial Comments To ER with reports of recent hospitalization for cellulitis left lower abdomen. She is currently on antibiotics for this. 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 She got kicked in this area of cellulitis yesterday and today it started oozing. No fevers or chills and the overall appearance is much better. Timing/Duration: yesterday Severity: mild Associated Symptoms: denies symptoms (LUZ RAZO APRN) Allergies and Home Medications Allergies Coded Allergies: Penicillins (Unverified Allergy, Mild, 12/07/08) codeine (Verified Allergy, Unknown, 01/21/14) vancomycin (Verified Allergy, Unknown, Itching, 02/06/21) morphine (Verified Adverse Reaction, Mild, VOMITING, 09/28/12) tramadol (Unverified Adverse Reaction, Mild, itching, 07/26/14) Home Medications Acetaminophen 500 Mg Tablet, 1,000 MG PO Q8H PRN for PAIN-MILD (1-4), (Reported) Doxycycline Hyclate 100 Mg Tablet, 100 MG PO BID Prescribed by: LUZ RAZO on 02/16/21 1642 Fluconazole 100 Mg Tablet, 100 MG PO DAILY Prescribed by: ETHAN MENDIETA on 02/08/21 1220 Fluconazole 100 Mg Tablet, 100 MG PO DAILY Prescribed by: ETHAN MENDIETA on 02/09/21 1448 Fluconazole 150 Mg Tablet, 150 MG PO DAILY Prescribed by: LUZ RAZO on 02/16/21 1648 Ibuprofen 200 Mg Tablet, 400-600 MG PO Q8H PRN for PAIN-MILD (1-4), (Reported) Ketorolac Tromethamine 10 Mg Tablet, 10 MG PO Q6H PRN for PAIN-BREAKTHROUGH, (Reported) Linezolid 600 Mg Tablet, 600 MG PO BID Prescribed by: ETHAN MENDIETA on 02/08/21 1220 Linezolid 600 Mg Tablet, 600 MG PO BID Prescribed by: ETHAN MENDIETA on 02/09/21 1448 Oxycodone HCl/Acetaminophen 1 Each Tablet, 1 TAB PO Q4H PRN for PAIN-MODERATE (5-7) Prescribed by: ETHAN MENDIETA on 02/08/21 1220 Oxycodone HCl/Acetaminophen 1 Each Tablet, 1 EACH PO Q4H PRN for PAIN-MODERATE Prescribed by: LUZ RAZO on 02/16/21 1642 Oxycodone Hcl 5 Mg Tab, 5 MG PO Q6H Prescribed by: ETHAN MENDIETA on 02/09/21 1449 Patient Home Medication List Home Medication List Reviewed: Yes (LUZ RAZO APRN) Review of Systems Review of Systems Constitutional: see HPI EENTM: see HPI Respiratory: no symptoms reported Cardiovascular: no symptoms reported Genitourinary: no symptoms reported Musculoskeletal: no symptoms reported Skin: no symptoms reported Psychiatric/Neurological: No Symptoms Reported Endocrine: No Symptoms Reported (LUZ RAZO APRN) Past Obktjyi-Bhtssj-Pqsaxs Hx Patient Social History Alcohol Use: Denies Use Drug of Choice: DENIES Type Used: Cigarettes 2nd Hand Smoke Exposure: No Recent Infectious Disease Expo: No Recent Hopitalizations: No (LUZ RAZO APRN) Immunizations Up To Date Tetanus Booster (TDap): Unknown Date of Influenza Vaccine: May 24, 2014 (LUZ RAZO APRN) Seasonal Allergies Seasonal Allergies: No (LUZ RAZO APRN) Past Medical History Surgeries: Yes (SURGERY FOR URETERO-VESICULAR REFLUX AGE 11;[facility] 11/2009;C- SECTION X 1) Bladder Surgery, Section, Gallbladder, Hysterectomy, Oophorectomy, Tubal Ligation Respiratory: No Cardiac: Yes Hypertension Neurological: No 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 Disorders: Yes (CPP, MENORRHAGIA, CINIII) Female 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 Disorders: 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 Sexually Transmitted Disease: Yes Genitourinary: Yes (URETERO-VESICULAR REFLUX SURGERY AGE 11) Kidney Stones, Neurogenic Bladder, UTI-Chronic, UTI (peds) Gastrointestinal: Yes Gastroesophageal Reflux, Irritable Bowel Musculoskeletal: Yes (compression fracture) Arthritis, Fibromyalgia, Chronic Back Pain, Fractures Endocrine: Yes Hypothyroidsim HEENT: No Cancer: Yes Cervical Psychosocial: Yes (MULTIDRUG OVER DOSE 2008) Sleep Difficulties, Anxiety, Suicide Attempts, Depression Integumentary: Yes (patient did have varicella zoster as a child.) Recent Skin Changes Blood Disorders: Yes (ANEMIA) (LUZ RAZO APRN) Family Medical History No Pertinent Family Hx (LUZ RAZO APRN) Physical Exam Vital Signs Vital Signs - First Documented 02/16/21 15:40 Temp 36.2 Pulse 84 Resp 18 B/P (MAP) 168/113 (131) Pulse Ox 99 (PEE ESPINOSA MD) Vital Signs Capillary Refill : Less Than 3 Seconds (LUZ RAZO APRN) General Appearance: WD/WN, no apparent distress Neck: non-tender, full range of motion Respiratory: normal breath sounds, no respiratory distress, no accessory muscle use Extremities: normal range of motion, non-tender Neurologic/Psychiatric: alert, normal mood/affect, oriented x 3 Skin: normal color, warm/dry Skin Problem Character: abscess (The skin to the left lower abdomen is very slightly erythematous, has receded from the borders significantly that were previously drawn around the area of erythema. There is some induration. Bedsid e ultrasound reveals 2 areas of fluid collection. The overlying skin was anesthetized with a total of 5 mL of 1% lidocaine without epinephrine. Incision was made with 11 blade scalpel x2. Serosanguineous material expressed from each of these incisions. The more medial incision was then packed with quarter inch iodoform gauze X and covered with 4 x 4's.) (LUZ RAZO APRN) Procedures/Interventions I&D : Blade Size: 11 Packing/Drain: Idoform 1/4 (LUZ RAZO APRN) Progress/Results/Core Measures Results/Orders Lab Results Laboratory Tests Test 02/16/21 16:12 Range/Units Urine Color YELLOW Urine Clarity SL CLOUDY Urine pH 6.0 5-9 Urine Specific [place] >=1.030 1.016-1.022 Urine Protein TRACE H NEGATIVE Urine Glucose (UA) NEGATIVE NEGATIVE Urine Ketones NEGATIVE NEGATIVE Urine Nitrite NEGATIVE NEGATIVE Urine Bilirubin NEGATIVE NEGATIVE Urine Urobilinogen 0.2 < = 1.0 MG/DL Urine Leukocyte Esterase NEGATIVE NEGATIVE Urine RBC (Auto) NEGATIVE NEGATIVE Urine RBC 0-2 /HPF Urine WBC 0-2 /HPF Urine Squamous Epithelial Cells 10-25 H /HPF Urine Crystals NONE /LPF Urine Bacteria TRACE /HPF Urine Casts PRESENT /LPF Urine Hyaline Casts 2-5 H /LPF Urine Mucus SMALL H /LPF Urine Yeast FEW H /HPF Urine Culture Indicated NO Urine Test NEGATIVE NEGATIVE (PEE ESPINOSA MD) Vital Signs/I&O 02/16/21 02/16/21 15:40 16:50 Temp 36.2 36.2 Pulse 84 84 Resp 18 18 B/P (MAP) 168/113 (131) 148/94 (131) Pulse Ox 99 99 (PEE ESPINOSA MD) Blood Pressure Mean: 131 Departure Impression Primary Impression: Abdominal wall abscess Disposition: HOME, SELF-CARE Condition: Stable Departure-Patient Inst. Decision time for Depature: 16:40 (LUZ RAZO APRN) Referrals: [facility] [place] (PCP/Family) Primary Care Physician Patient Instructions: Abscess Incision and Drainage ED Add. Discharge Instructions: 1. Return to ER for any concerns. Remove the packing tomorrow by simply pulling on it. Pain medication and antibiotics as directed. All discharge instructions reviewed with patient and/or family. Voiced understanding. Scripts Fluconazole (Diflucan) 150 Mg Tablet 150 MG PO DAILY, #3 TAB Prov: LUZ RAZO APRN 02/16/21 Oxycodone HCl/Acetaminophen (Oxycodone-Acetaminophen 5-325) 1 Each Tablet 1 EACH PO Q4H PRN for PAIN-MODERATE MDD 6 for 3 Days, #10 TAB 0 Refills Prov: LUZ RAZO APRN 02/16/21 Doxycycline Hyclate (Doxycycline Hyclate) 100 Mg Tablet 100 MG PO BID, #10 TAB 0 Refills Prov: LUZ RAZO APRN 02/16/21 Work/School Note: Work Release Form Date Seen in the Emergency Department: Feb 16, 2021 Return to Work: Feb 19, 2021 ATTENDING PHYSICIAN NOTE: I was physically present as attending physician in the emergency department during the care of this patient, but I was not directly involved in the decision making or delivery of care for this patient. (PEE ESPINOSA MD) LUZ RAZO APRN Feb 16, 2021 16:20 PEE ESPINOSA MD Feb 16, 2021 18:45
[2021-02-16 16:33] LABS: BILIRUBIN,URINE NEGATIVE (NEGATIVE); CLARITY,URINE SL CLOUDY; COLOR,URINE YELLOW; GLUCOSE, URINE (UA) NEGATIVE (NEGATIVE); KETONES,URINE NEGATIVE (NEGATIVE); LEUKOCYTE ESTERASE ,URINE NEGATIVE (NEGATIVE); NITRITE,URINE NEGATIVE (NEGATIVE); PROTEIN,URINE TRACE (NEGATIVE)
[2021-02-16 16:42] LABS: BACTERIA,URINE TRACE /HPF; RBC,URINE 0-2 /HPF; WBC,URINE 0-2 /HPF
[2021-02-16] MEDS ORDERED: OXYC1TAB11 PO (16:42)
[2021-02-16] MEDS ORDERED: DOXY100T2 PO (16:42)
[2021-02-16 16:43] LABS: YEAST,URINE FEW /HPF
[2021-02-16] MEDS ORDERED: FLUC150T PO (16:48)
[2021-02-16 16:50] VITALS: BP 148/94
== END 2021-02-16 16:51 | disposition home or self-care (01) ==
LOC: EDUNIT# 15:34 → ER 15:36
DX: L02.211 Cutaneous abscess of abdominal wall (principal); I10 Essential (primary) hypertension; G89.29 Other chronic pain; M54.9 Dorsalgia, unspecified; Z88.0 Allergy status to penicillin; Z79.891 Long term (current) use of opiate analgesic; Z79.899 Other long term (current) drug therapy
CPT/HCPCS: 10061; 81000; 84703; 87070; 87205

== ENCOUNTER 2021-06-01 01:51 | Emergency (ER) | payer SELFPAY ==
[~2021-06-01] VITALS: Ht 155 cm; Wt 118.0 kg
[~2021-06-01 01:51] MED LIST changes: +DOXY100T2 PO; +FLUC150T PO; +OXYC1TAB11 PO; -SULF1TAB35 PO; +SULF1TAB38 PO
--- NOTE | 2021-06-01 02:04 | ED EENT ---
History of Present Illness General Chief Complaint: Dental Problems/Pain Stated Complaint: DENTAL PAIN Source: patient Exam Limitations: no limitations History of Present Illness Date Seen by Provider: Jun 01, 2021 Time Seen by Provider: 01:57 Initial Comments Patient to the ER by private conveyance from home with chief complaint of bilateral premolars on the mandibles are tender swollen broken and infected. She says this episode has been going on for couple days now and she cannot tolerate the pain. She is been using aspirin and Orajel with no relief. Last dose of aspirin was about 5 to 6 hours ago Allergies and Home Medications Allergies Coded Allergies: Penicillins (Unverified Allergy, Mild, 12/07/08) codeine (Verified Allergy, Unknown, 01/21/14) vancomycin (Verified Allergy, Unknown, Itching, 02/06/21) morphine (Verified Adverse Reaction, Mild, VOMITING, 09/28/12) tramadol (Unverified Adverse Reaction, Mild, itching, 07/26/14) Patient Home Medication List Home Medication List Reviewed: Yes Acetaminophen (Tylenol Extra Strength) 500 Mg Tablet, 1,000 MG PO Q8H PRN for PAIN-MILD (1-4), (Reported) Entered as Reported by: LAXMI ARREDONDO on 02/07/21 1015 Clindamycin HCl (Clindamycin HCl) 150 Mg Capsule, 450 MG PO TID Prescribed by: VINAYAK DRAKE on 06/01/21 0210 Doxycycline Hyclate (Doxycycline Hyclate) 100 Mg Tablet, 100 MG PO BID Prescribed by: LUZ RAZO on 02/16/21 1642 Fluconazole (Diflucan) 100 Mg Tablet, 100 MG PO DAILY Prescribed by: ETHAN MENDIETA on 02/08/21 1220 Fluconazole (Diflucan) 100 Mg Tablet, 100 MG PO DAILY Prescribed by: ETHAN MENDIETA on 02/09/21 1448 Fluconazole (Diflucan) 150 Mg Tablet, 150 MG PO DAILY Prescribed by: LUZ RAZO on 02/16/21 1648 Ibuprofen (Ibuprofen) 200 Mg Tablet, 400-600 MG PO Q8H PRN for PAIN-MILD (1-4), (Reported) Entered as Reported by: LAXMI ARREDONDO on 02/07/21 1015 Ketorolac Tromethamine (Ketorolac Tromethamine) 10 Mg Tablet, 10 MG PO Q6H PRN for PAIN-BREAKTHROUGH, (Reported) Entered as Reported by: LAXMI ARREDONDO on 02/07/21 1015 Linezolid (Zyvox) 600 Mg Tablet, 600 MG PO BID Prescribed by: ETHAN MENDIETA on 02/08/21 1220 Linezolid (Zyvox) 600 Mg Tablet, 600 MG PO BID Prescribed by: ETHAN MENDIETA on 02/09/21 1448 Oxycodone HCl/Acetaminophen (Percocet 5-325 mg Tablet) 1 Each Tablet, 1 TAB PO Q4H PRN for PAIN-MODERATE (5-7) Prescribed by: ETHAN MENDIETA on 02/08/21 1220 Oxycodone HCl/Acetaminophen (Oxycodone-Acetaminophen 5-325) 1 Each Tablet, 1 EACH PO Q4H PRN for PAIN-MODERATE Prescribed by: LUZ RAZO on 02/16/21 1642 Oxycodone Hcl (Oxyir Tablet) 5 Mg Tab, 5 MG PO Q6H Prescribed by: ETHAN MENDIETA on 02/09/21 1449 Review of Systems Review of Systems Constitutional: No chills, No diaphoresis Eyes: Denies Blindness, Denies Blurred Vision, Denies Drainage Ears: Denies Dizziness, Denies Pain Nose: denies clots, denies congestion Mouth: see HPI; denies clots; pain, swelling Throat: denies pain, denies swelling Respiratory: No cough, No phlegm, No short of breath Cardiovascular: No chest pain, No edema Gastrointestinal: No abdominal pain, No constipation All Other Systems Reviewed Negative Unless Noted: Yes Past Lcwrtxc-Uxyqvd-Czdmoj Hx Patient Social History Tobacco Use?: No Substance use?: No Alcohol Use?: No Pt feels they are or have been: No Immunizations Up To Date Tetanus Booster (TDap): Unknown First/Initial COVID19 Vaccinat: October 2020 Second COVID19 Vaccination Niko: October 2020 Seasonal Allergies Seasonal Allergies: No Past Medical History Surgeries: Yes (SURGERY FOR URETERO-VESICULAR REFLUX AGE 11;[facility] 11/2009;C- SECTION X 1) Bladder Surgery, Section, Gallbladder, Hysterectomy, Oophorectomy, Tubal Ligation Respiratory: No Cardiac: Yes Hypertension Neurological: No 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 Disorders: Yes (CPP, MENORRHAGIA, CINIII) Female 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 Disorders: 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 Sexually Transmitted Disease: Yes Genitourinary: Yes (URETERO-VESICULAR REFLUX SURGERY AGE 11) Kidney Stones, Neurogenic Bladder, UTI-Chronic, UTI (peds) Gastrointestinal: Yes Gastroesophageal Reflux, Irritable Bowel Musculoskeletal: Yes (compression fracture) Arthritis, Fibromyalgia, Chronic Back Pain, Fractures Endocrine: Yes Hypothyroidsim HEENT: No Cancer: Yes Cervical Psychosocial: Yes (MULTIDRUG OVER DOSE 2009) Sleep Difficulties, Anxiety, Suicide Attempts, Depression Integumentary: Yes (patient did have varicella zoster as a child.) Recent Skin Changes Blood Disorders: Yes (ANEMIA) Family Medical History No Pertinent Family Hx Physical Exam Vital Signs Vital Signs - First Documented 06/01/21 01:58 Temp 35.1 Pulse 78 Resp 18 B/P (MAP) 204/134 (157) Pulse Ox 98 O2 Delivery Room Air Height, Weight, BMI Height: 5'1.00" Weight: 250lbs. 0.0oz. [id number]; 49.00 BMI Method:Stated General Appearance: WD/WN, no apparent distress Eyes: bilateral eye normal inspection, bilateral eye PERRL, bilateral eye EOMI Ears: bilateral ear auricle normal, bilateral ear canal normal, bilateral ear TM normal Nose: normal inspection, discharge Mouth/Throat: normal mouth inspection, dental tenderness (Premolars on bilateral mandibles are broken, extensive carious and some gingival swelling without pointing) Neck: non-tender, full range of motion, supple, normal inspection Cardiovascular: normal peripheral pulses, regular rate, rhythm Respiratory: no respiratory distress, no accessory muscle use Gastrointestinal: non tender, soft Neurologic/Psychiatric: alert, normal mood/affect Skin: normal color, warm/dry Procedures/Interventions Progress Infraalveolar nerve block left side mandible. Ascertain the landmarks and using a 25-gauge 1-1/2 inch needle infiltrated with one half and one half mixture of 1% lidocaine without epinephrine and half percent Marcaine without epinephrine. We injected about 1 cc total into the area. Patient had good relief of symptoms shortly afterwards and tolerated the procedure well. Progress/Results/Core Measures Results/Orders My Orders Orders - VINAYAK DRAKE Lidocaine 2% Viscous 15 Ml (Xylocaine Vi (06/01/21 02:15) Ketorolac Injection (Toradol Injection) (06/01/21 02:15) Vital Signs/I&O 06/01/21 01:58 Temp 35.1 Pulse 78 Resp 18 B/P (MAP) 204/134 (157) Pulse Ox 98 O2 Delivery Room Air Progress Progress Note : Time: 02:07 Progress Note Plan to do a alveolar nerve block on the left side which she says is worse than the right. Viscous lidocaine on the right. Toradol for her pain and put her on clindamycin Departure Impression Primary Impression: Dental caries Additional Impression: Dental abscess Disposition: 01 HOME, SELF-CARE Condition: Stable Departure-Patient Inst. Decision time for Depature: 02:00 Referrals: [facility] (PCP/Family) Primary Care Physician Patient Instructions: Dental Pain, Tooth Abscess (DC) Add. Discharge Instructions: Warm moist heat applied directly to the face can help with pain and swelling. Topical creams such as Orajel or the viscous lidocaine 5 cc applied directly over the tooth and held in place with some gauze every 4 hours as necessary. Tylenol 1000 mg every 8 hours as necessary for pain. Ibuprofen 800 mg every 8 hours as necessary for pain. Clindamycin 3 capsules 3 times a day for the next 7 to 10 days until the swelling and pain goes away. Follow-up with a dentist. All discharge instructions reviewed with patient and/or family. Voiced understanding. Scripts Clindamycin HCl (Clindamycin HCl) 150 Mg Capsule 450 MG PO TID for 10 Days, #90 CAP 0 Refills Prov: VINAYAK DRAKE 06/01/21 Work/School Note: Work Release Form Date Seen in the Emergency Department: Jun 01, 2021 Return to Work: Jun 03, 2021 Restrictions: No Restrictions VINAYAK DRAKE Jun 01, 2021 02:04
[2021-06-01] MEDS ORDERED: CLIN150C20 PO (02:10)
[2021-06-01] MEDS ORDERED: KETOROLAC 60 MG/2 ML VIAL IM ONE (02:15)
[2021-06-01] MEDS ORDERED: LIDOCAINE 2% VISCOUS 15 ML UDC PO ONE (02:15)
[2021-06-01 02:22] VITALS: BP 178/105
== END 2021-06-01 02:22 | disposition home or self-care (01) ==
LOC: EDUNIT# 01:51 → ER 01:55
DX: K02.9 Dental caries, unspecified (principal); K04.7 Periapical abscess without sinus; I10 Essential (primary) hypertension; G89.29 Other chronic pain; M54.9 Dorsalgia, unspecified; Z79.891 Long term (current) use of opiate analgesic
CPT/HCPCS: 99284